=== PATIENT | male | born 1955 | race Caucasian/White ===

== ENCOUNTER 2017-01-20 16:11 | Inpatient (IN) | payer BC ==
[~2017-01-20] VITALS: Ht 182.9 cm; Wt 139.1 kg
[2017-01-20] VITALS (12 sets, daily range): BP systolic 155–184; BP diastolic 76–96; PULSE 64–78; RESP 16–20; TEMP 98.1–98.5; O2SAT 96–99
[~2017-01-20 16:11] MED LIST: AMLO2.5T PO; ST JTAB PO
--- NOTE | 2017-01-20 16:37 | PD ---
HPI Chief Complaint: Abnormal Results Time Seen by Provider: 16:24 Travel History International Travel<30 days: No Contact w/Intl Traveler<30days: No Traveled to known affect area: No History of Present Illness HPI 61-year-old male with history of CAD, hypertension, here for evaluation of nausea and elevated blood pressure. The patient reports that he felt as though he was having a sinus infection and started taking a leftover Biaxin prescription yesterday. Today the patient has had some nausea and indigestion type feeling in his chest, and when he checked his blood pressure at home it was 190/113. He is also complaining of a diffuse headache which is moderate, gradual onset. No dyspnea. No paresthesias or motor deficits. Patient had a cardiac catheter [place] [address] Elise which showed mild disease. PFSH Past Medical History Cardiovascular Problems: Yes Social History Alcohol Use: Yes (occasional) Tobacco Use: No Allergies-Medications (Allergen,Severity, Reaction): Coded Allergies: No Known Allergies (Verified , 01/20/17) Reported Meds & Prescriptions Reported Meds & Active Scripts Active Reported Testosterone Cypionate Inj (Testosterone Cypionate) 100 Mg/Ml Inj 100 Mg IM ONCE Livalo (Pitavastatin) 2 Mg Tab 2 Mg PO HS Aspirin 81 Mg Tabdr 81 Mg PO DAILY Amlodipine (Amlodipine Besylate) 2.5 Mg Tab 2.5 Mg PO DAILY Review of Systems Except as stated in HPI: all other systems reviewed are Neg Physical Exam Narrative GENERAL: Well-developed, well-nourished, comfortable, no acute distress. SKIN: Warm and dry. No rash. HEAD: Atraumatic. Normocephalic. EYES: Pupils equal and round. No scleral icterus. No injection or drainage. ENT: Mucous membranes pink and moist. NECK: Trachea midline. No JVD. CARDIOVASCULAR: Regular rate and rhythm. Distal pulses brisk and equal bilaterally. RESPIRATORY: No accessory muscle use. Clear to auscultation. Breath sounds equal bilaterally. GASTROINTESTINAL: Abdomen soft, non-tender, nondistended. MUSCULOSKELETAL: No obvious deformities. No clubbing. No cyanosis. No edema. NEUROLOGICAL: Awake and alert. No obvious cranial nerve deficits. Motor grossly within normal limits. Normal speech. No focal deficits. PSYCHIATRIC: Appropriate mood and affect; insight and judgment normal. Data Data Last Documented VS Vital Signs Date Time Temp Pulse Resp B/P Pulse Ox O2 Delivery O2 Flow Rate FiO2 01/20/17 17:35 76 18 174/94 97 Room Air 01/20/17 16:18 98.5 Orders Electrocardiogram (01/20/17 16:32) Ckmb (Isoenzyme) Profile (01/20/17 16:32) Complete Blood Count With Diff (01/20/17 16:32) Comprehensive Metabolic Panel (01/20/17 16:32) Magnesium (Mg) (01/20/17 16:32) Prothrombin Time / Inr (Pt) (01/20/17 16:32) Act Partial Throm Time (Ptt) (01/20/17 16:32) Troponin I (01/20/17 16:32) Chest, Single Ap (01/20/17 16:32) Ecg Monitoring (01/20/17 16:32) Bilateral Bp Monitoring (01/20/17 16:32) Iv Access Insert/Monitor (01/20/17 16:32) Oximetry (01/20/17 16:32) Oxygen Administration (01/20/17 16:32) Aspirin Chew (Aspirin Chew) (01/20/17 16:45) Sodium Chloride 0.9% Flush (Ns Flush) (01/20/17 16:45) Metoclopramide Inj (Reglan Inj) (01/20/17 16:45) CKMB (01/20/17 16:40) CKMB% (01/20/17 16:40) Aspirin Chew (Aspirin Chew) (01/20/17 17:30) Admit Order (Ed Use Only) (01/20/17 17:48) Enoxaparin Inj (Lovenox Inj) (01/20/17 18:00) Labs Laboratory Tests Test 01/20/17 16:40 White Blood Count 8.4 TH/MM3 Red Blood Count 5.02 MIL/MM3 Hemoglobin 15.6 GM/DL Hematocrit 45.0 % Mean Corpuscular Volume 89.7 FL Mean Corpuscular Hemoglobin 31.0 PG Mean Corpuscular Hemoglobin 34.6 % Concent Red Cell Distribution Width 12.2 % Platelet Count 258 TH/MM3 Mean Platelet Volume 7.3 FL Neutrophils (%) (Auto) 61.1 % Lymphocytes (%) (Auto) 25.7 % Monocytes (%) (Auto) 9.4 % Eosinophils (%) (Auto) 2.6 % Basophils (%) (Auto) 1.2 % Neutrophils # (Auto) 5.1 TH/MM3 Lymphocytes # (Auto) 2.2 TH/MM3 Monocytes # (Auto) 0.8 TH/MM3 Eosinophils # (Auto) 0.2 TH/MM3 Basophils # (Auto) 0.1 TH/MM3 CBC Comment DIFF FINAL Differential Comment Prothrombin Time 10.8 SEC Prothromb Time International 1.0 RATIO Ratio Activated Partial 26.8 SEC Thromboplast Time Sodium Level 140 MEQ/L Potassium Level 3.9 MEQ/L Chloride Level 104 MEQ/L Carbon Dioxide Level 27.2 MEQ/L Anion Gap 9 MEQ/L Blood Urea Nitrogen 14 MG/DL Creatinine 1.10 MG/DL Estimat Glomerular Filtration 68 ML/MIN Rate Random Glucose 97 MG/DL Calcium Level 9.0 MG/DL Magnesium Level 2.0 MG/DL Total Bilirubin 0.7 MG/DL Aspartate Amino Transf 26 U/L (AST/SGOT) Alanine Aminotransferase 35 U/L (ALT/SGPT) Alkaline Phosphatase 90 U/L Total Creatine Kinase 318 U/L Creatine Kinase MB 5.0 NG/ML Creatine Kinase MB % 1.6 % Troponin I 0.18 NG/ML Total Protein 7.7 GM/DL Albumin 4.0 GM/DL [facility] Medical Decision Making Medical Screen Exam Complete: Yes Emergency Medical Condition: Yes Interpretation(s) EKG: Sinus, rate 72, left axis deviation, LAFB, Q waves in inferior leads, low QRS voltages in precordial leads, no acute ischemic abnormality. Differential Diagnosis ACS, nausea, indigestion, GERD, hypertensive emergency, SAH/meningitis/ encephalitis unlikely, medication side effect Narrative Course Initial vital signs show heart rate 77, blood pressure 155/95, pulse ox 97% on room air, oral temp of 98.5F. CBC is unremarkable. CMP is unremarkable. Troponin is 0.18. Chest x-ray shows no acute cardiopulmonary disease. The patient took 3 baby aspirin at home and was given 1 more 81 mg aspirin here. He was made aware of all findings and is currently asymptomatic, no longer feels nauseous or has a headache after receiving Reglan. I discussed all results in detail with the patient, and initially he was refusing to stay in the hospital, however I explained to him that he would be taking on the risk of heart attack and if he were to leave the hospital, so he decided to stay. Case discussed with golf club head former Dr. Regalado covering for Dr. Elise. He agrees with admission to the main hospital [facility]. The patient will be started on Lovenox. Case discussed with hospitalist Dr. Everett who will admit the patient to her service. Diagnosis Primary Impression: NSTEMI (non-ST elevated myocardial infarction) Additional Impression: Nausea Admitting Information Admitting Physician Requests: Admit Esvin Ivory MD Jan 20, 2017 16:36
[2017-01-20] MEDS ORDERED: AMLO2.5T PO (16:38)
[2017-01-20] MEDS ORDERED: TEST1INJ3 IM (16:38)
[2017-01-20] MEDS ORDERED: LIVA2TAB PO (16:38)
[2017-01-20] MEDS ORDERED: ASPI1TAB69 PO (16:38)
[2017-01-20] MEDS ORDERED: ASPIRIN 81 MG CHEW TAB PO ONE ×2 (16:45→17:30)
[2017-01-20] MEDS ORDERED: METOCLOPRAMIDE HCL 10 MG/2 ML VIAL IV PUSH ONE (16:45)
[2017-01-20] MEDS ORDERED: SODIUM CHLORIDE 0.9% FLUSH 5 ML FLUSH IVF PRN (16:45)
[2017-01-20 16:52] LABS: AUTOMATED NEUTROPHIL # 5.1 TH/MM3 (1.8-7.7); BASOPHIL # 0.1 TH/MM3 (0-0.2); BASOPHIL % 1.2 % (0.0-2.0); EOSINOPHIL # 0.2 TH/MM3 (0-0.4); EOSINOPHIL % 2.6 % (0.0-4.0); HEMO FLAGS DIFF FINAL; LYMPH % 25.7 % (9.0-44.0); LYMPHOCYTE # 2.2 TH/MM3 (1.0-4.8); MEAN CELL VOLUME 89.7 FL (80.0-100.0); MEAN CORPUSCULAR HGB CONC 34.6 % (32.0-36.0); MONO % 9.4 % (0.0-8.0); NEUT % 61.1 % (16.0-70.0); PLATELET COUNT 258 TH/MM3 (150-450); RED BLOOD COUNT 5.02 MIL/MM3 (4.50-5.90); RED CELL DISTRIBUTION WIDTH 12.2 % (11.6-17.2); WHITE BLOOD COUNT 8.4 TH/MM3 (4.0-11.0)
[2017-01-20 17:03] LABS: CHLORIDE 104 MEQ/L (98-107); POTASSIUM 3.9 MEQ/L (3.5-5.1); SODIUM (NA) 140 MEQ/L (136-145)
[2017-01-20 17:07] LABS: ANION GAP 9 MEQ/L (5-15); BICARBONATE 27.2 MEQ/L (21.0-32.0); BLOOD UREA NITROGEN 14 MG/DL (7-18)
[2017-01-20 17:09] LABS: APTT (PATIENT) 26.8 SEC (24.3-30.1); PROTHROMBIN TIME - PATIENT 10.8 SEC (9.8-11.6)
[2017-01-20 17:10] LABS: ALT (GPT) 35 U/L (12-78); AST (GOT) 26 U/L (15-37); GLOMERULAR FILTRATION RATE 68 ML/MIN (>89)
[2017-01-20 17:12] LABS: TOTAL BILIRUBIN ADULT 0.7 MG/DL (0.2-1.0)
--- NOTE | 2017-01-20 17:12 | RADHPO ---
EXAM DATE/TIME: 01/20/2017 17:02 [place] COMPARISON: No previous studies available for comparison. INDICATIONS : Dizziness, nausea, and high blood pressure. MEDICAL HISTORY : Hypertension. SURGICAL HISTORY : Coronary artery stent. ENCOUNTER: Initial ACUITY: 1 day PAIN SCORE: 0/10 LOCATION: Right chest FINDINGS: A single view of the chest demonstrates the lungs to be symmetrically aerated without evidence of mas s, infiltrate or effusion. The cardiomediastinal contours are unremarkable. Osseous structures are intact. CONCLUSION: 1. No acute cardiopulmonary disease. Alvarez Lopez MD on January 20, 2017 at 17:10 Board Certified Radiologist. This report was verified electronically.
[2017-01-20 17:13] LABS: ALKALINE PHOSPHATASE 90 U/L (45-117); CREATINE KINASE 318 U/L (39-308)
[2017-01-20] MEDS: NITROGLYCERIN 2% OINT 1 GM PACKET TOP SCH (18:00)
[2017-01-20] MEDS ORDERED: ACETAMINOPHEN/HYDROcodone 325 MG/7.5 MG TAB PO PRN (18:00)
[2017-01-20] MEDS ORDERED: DOCUSATE SODIUM 100 MG CAP PO PRN (18:00)
[2017-01-20] MEDS ORDERED: CALCIUM CARBONATE 500 MG CHEWABLE TAB CHEW PRN (18:00)
[2017-01-20] MEDS ORDERED: ONDANSETRON HCL 4 MG/2 ML VIAL IV PRN (18:00)
[2017-01-20] MEDS ORDERED: MORPHINE SULFATE 4 MG/ML INJ IV PRN (18:00)
[2017-01-20] MEDS ORDERED: ENOXAPARIN SODIUM 150 MG/ML SYRINGE SQ ONE (18:00)
[2017-01-20] MEDS ORDERED: ALPRAZolam 0.25 MG TAB PO PRN (18:00)
[2017-01-20] MEDS ORDERED: ACETAMINOPHEN 500 MG CPLT PO PRN (18:00)
[2017-01-20] MEDS ORDERED: SODIUM CHLORIDE 0.9% FLUSH 5 ML FLUSH IV PRN (18:00)
[2017-01-20] MEDS ORDERED: MAGNESIUM HYDROXIDE SUSP 30 ML CUP PO PRN (18:00)
[2017-01-20] MEDS ORDERED: TEMAZEPAM 15 MG CAP PO PRN (21:00)
[2017-01-20] MEDS ORDERED: PRAVASTATIN SOD 40 MG TAB PO SCH (21:00)
[2017-01-20] MEDS ORDERED: CHLORHEXIDINE GLUCONATE 2 % 1 PACK (2 CLOTHS)(extra cloths) TOP PRN (21:30)
[2017-01-20] MEDS: SODIUM CHLORIDE 0.9% FLUSH 5 ML FLUSH IV SCH (22:06)
[2017-01-20] MEDS: METOPROLOL TARTRATE 25 MG TAB PO SCH (22:07)
[2017-01-21] VITALS (17 sets, daily range): BP systolic 139–165; BP diastolic 67–92; PULSE 60–72; RESP 16–20; TEMP 97.8–98.7; O2SAT 92–99
[2017-01-21] MEDS: NITROGLYCERIN 2% OINT 1 GM PACKET TOP SCH ×4 (00:34→17:49)
[2017-01-21 03:38] LABS: HDL CHOLESTEROL 27.4 MG/DL (40.0-60.0)
[2017-01-21] MEDS: CHLORHEXIDINE GLUCONATE 2 % 1 PACK (2 CLOTHS)(taper/protocol) TOP SCH (04:00)
[2017-01-21 05:02] LABS: POTASSIUM 3.7 MEQ/L (3.5-5.1)
[2017-01-21 05:57] LABS: CKMB 39.4 NG/ML (0.5-3.6)
[2017-01-21] MEDS ORDERED: ENOXAPARIN SODIUM 150 MG/ML SYRINGE SQ SCH (06:00)
--- NOTE | 2017-01-21 07:53 | HHI.HP ---
[facility] Service [facility] Hospitalists Primary Care Physician Non-Staff Admission Diagnosis NSTEMI, nausea Diagnoses: (1) NSTEMI (non-ST elevated myocardial infarction) Diagnosis: Principal Chief Complaint: nausea Travel History International Travel<30 Days: No Contact w/Intl Traveler <30 Da: No Traveled to Known Affected Are: No History of Present Illness patient is a 61 y/o male with history of hypertension who presented to ER with nausea. he says that he was at his usual state of health till yesterday when he started to have nausea. he says that he checked his blood pressure at the time and it was around 190's/ 110's. then he decided to come to the hospital. he denies any chest pain, sob, dizziness or diaphoresis. he had a heart catheterization in 2010 and being followed up by . at the time of my evaluation he was resting comfortably with no chest pain. Review of Systems Constitutional: DENIES: Fever, Weight loss, Chills, Night Sweats Eyes: DENIES: Blurred vision, Diplopia, Vision loss, Double Vision Ears, nose, mouth, throat: DENIES: Tinnitus, Vertigo, Throat pain, Epistaxis Respiratory: DENIES: Apneas, Cough, Snoring, Wheezing, Hemoptysis, Sputum production, Shortness of breath Cardiovascular: DENIES: Chest pain, Palpitations, Syncope, Dyspnea on Exertion , PND, Lower Extremity Edema, Orthopnea, Claudication Gastrointestinal: COMPLAINS OF: Nausea, DENIES: Abdominal pain, Black stools, Bloody stools, Constipation, Diarrhea, Vomiting, Difficulty Swallowing, Anorexia Genitourinary: DENIES: Urinary frequency, Urgency, Hematuria, Dysuria Musculoskeletal: DENIES: Joint pain, Muscle aches, Stiffness, Joint Swelling Integumentary: DENIES: Rash Neurologic: DENIES: Abnormal gait, Headache, Localized weakness, Paresthesias, Seizures, Speech Problems, Tremor, Poor Balance Psychiatric: DENIES: Anxiety, Confusion, Mood changes, Depression, Hallucinations, Agitation, Suicidal Ideation, Homicidal Ideation, Delusions Past Family Social History Past Medical History hypertension Past Surgical History tonsillectomy appendectomy rotator cuff repair knee surgery cardiac cath Reported Medications Testosterone Cypionate Inj (Testosterone Cypionate) 100 Mg/Ml Inj 100 Mg IM ONCE Livalo (Pitavastatin) 2 Mg Tab 2 Mg PO HS Aspirin 81 Mg Tabdr 81 Mg PO DAILY Amlodipine (Amlodipine Besylate) 2.5 Mg Tab 2.5 Mg PO DAILY Allergies: Coded Allergies: No Known Allergies (Verified , 01/20/17) Active Ordered Medications Current Medications Aspirin (Aspirin Chew) 162 mg ONCE ONCE PO ; Start 01/20/17 at 16:45; Stop at 17:23; Status DC IV Flush (NS Flush) 2 ml UNSCH PRN IVF FLUSH AFTER USING IV ACCESS; Start at 16:45; Stop 01/20/17 at 18:05; Status DC Metoclopramide HCl (Reglan Inj) 10 mg ONCE ONCE IV PUSH Last administered on 17:09; Start 01/20/17 at 16:45; Stop 01/20/17 at 16:46; Status DC Aspirin (Aspirin Chew) 81 mg ONCE ONCE PO Last administered on 01/20/17 17:30 ; Start 01/20/17 at 17:30; Stop 01/20/17 at 17:31; Status DC Enoxaparin Sodium (Lovenox Inj) 140 mg ONCE ONCE SQ Last administered on 18:36; Start 01/20/17 at 18:00; Stop 01/20/17 at 18:01; Status DC IV Flush (NS Flush) 2 ml BID IV Last administered on 01/20/17 22:06; Start 01/20 at 21:00 IV Flush (NS Flush) 2 ml UNSCH PRN IV FLUSH AFTER USING IV ACCESS; Start at 18:00 Aspirin (Aspirin) 325 mg DAILY PO ; Start 01/21/17 at 09:00 Metoprolol Tartrate (Lopressor) 25 mg BID PO Last administered on 01/20/17 22: 07; Start 01/20/17 at 21:00 Nitroglycerin (Nitroglycerin 2% Oint) 0.5 inch Q6HR TOP Last administered on 07:10; Start 01/20/17 at 18:00 Acetaminophen (Tylenol) 500 mg Q4H PRN PO HEADACHE; Start 01/20/17 at 18:00 Acetaminophen/ Hydrocodone Bitart ([place] 7.5-325 Mg) 1 tab Q4H PRN PO PAIN SCALE 1 TO 5; Start 01/20/17 at 18:00 Morphine Sulfate (Morphine Inj) 2 mg Q5M PRN IV PAIN SCALE 6 TO 10; Start at 18:00 Pantoprazole Sodium (Protonix) 40 mg DAILY PO ; Start 01/21/17 at 09:00 Temazepam (Restoril) 15 mg HS PRN PO INSOMNIA; Start 01/20/17 at 21:00 Alprazolam (Xanax) 0.25 mg TID PRN PO ANXIETY; Start 01/20/17 at 18:00 Enoxaparin Sodium (Lovenox Inj) 140 mg Q12H SQ ; Start 01/21/17 at 06:00 Ondansetron HCl (Zofran Inj) 4 mg Q6H PRN IV NAUSEA; Start 01/20/17 at 18:00 Docusate Sodium (Colace) 100 mg BID PRN PO CONSTIPATION; Start 01/20/17 at 18:00 Magnesium Hydroxide (Milk Of Magnesia Liq) 30 ml DAILY PRN PO for Severe Constipation; Start 01/20/17 at 18:00 Calcium Carbonate (Tums Chew) 1,000 mg TID PRN CHEW DYSPEPSIA; Start 01/20/17 at 18:00 Amlodipine Besylate (Norvasc) 2.5 mg DAILY PO ; Start 01/21/17 at 09:00 Pravastatin Sodium (Pravachol) 40 mg HS PO Last administered on 01/20/17 22:07 ; Start 01/20/17 at 21:00 Miscellaneous Information Patient in critical care unit? Ass... [id number] ; Start 01/20/17 at 21:30 Chlorhexidine Gluconate (Chlorhexidine 2% Cloth) 3 pack DAILY@04 TOP Last administered on 01/21/17 04:00; Start 01/21/17 at 04:00; Stop 01/25/17 at 04:01 Chlorhexidine Gluconate (Chlorhexidine 2% Cloth) 3 pack UNSCH PRN TOP HYGIENIC CARE; Start 01/20/17 at 21:30; Stop 01/25/17 at 21:28 Family History heart attack in father in his 50's. Social History no smoking or drinking. Physical Exam Vital Signs Vital Signs Date Time Temp Pulse Resp B/P Pulse Ox O2 Delivery O2 Flow Rate FiO2 01/21/17 06:00 67 01/21/17 04:00 70 01/21/17 04:00 98.7 70 20 139/67 95 01/21/17 02:00 60 01/21/17 00:00 62 01/21/17 00:00 98.3 62 18 139/67 92 01/20/17 22:00 65 01/20/17 21:32 97 21 01/20/17 21:29 98.1 64 20 175/91 96 01/20/17 20:41 99 01/20/17 19:03 99 Room Air 01/20/17 19:03 78 16 174/76 99 Room Air 01/20/17 18:59 96 01/20/17 18:25 77 20 174/76 97 Room Air 01/20/17 17:35 76 18 174/94 97 Room Air 01/20/17 16:50 74 184/96 168/94 01/20/17 16:43 96 Room Air 01/20/17 16:43 96 Room Air 01/20/17 16:38 75 18 158/91 96 Room Air 01/20/17 16:38 96 Room Air 01/20/17 16:18 98.5 77 16 155/95 97 Physical Exam GENERAL: This is a well-nourished, well-developed patient, in no apparent distress. SKIN: No rashes, ecchymoses or lesions. Cool and dry. HEAD: Atraumatic. Normocephalic. No temporal or scalp tenderness. EYES: Pupils equal round and reactive. Extraocular motions intact. No scleral icterus. No injection or drainage. ENT: Nose without bleeding, purulent drainage or septal hematoma. Throat without erythema, tonsillar hypertrophy or exudate. Uvula midline. Airway patent. NECK: Trachea midline. No JVD or lymphadenopathy. Supple, nontender, no meningeal signs. CARDIOVASCULAR: Regular rate and rhythm without murmurs, gallops, or rubs. RESPIRATORY: Clear to auscultation. Breath sounds equal bilaterally. No wheezes , rales, or rhonchi. GASTROINTESTINAL: Abdomen soft, non-tender, nondistended. No hepato-splenomegaly , or palpable masses. No guarding. MUSCULOSKELETAL: Extremities without clubbing, cyanosis, or edema. No joint tenderness, effusion, or edema noted. No calf tenderness. Negative Homans sign bilaterally. NEUROLOGICAL: Awake and alert. Cranial nerves II through XII intact. Motor and sensory grossly within normal limits. Five out of 5 muscle strength in all muscle groups. Normal speech. Laboratory Laboratory Tests Test 01/20/17 01/21/17 16:40 02:26 White Blood Count 8.4 Red Blood Count 5.02 Hemoglobin 15.6 Hematocrit 45.0 Mean Corpuscular Volume 89.7 Mean Corpuscular Hemoglobin 31.0 Mean Corpuscular Hemoglobin 34.6 Concent Red Cell Distribution Width 12.2 Platelet Count 258 Mean Platelet Volume 7.3 Neutrophils (%) (Auto) 61.1 Lymphocytes (%) (Auto) 25.7 Monocytes (%) (Auto) 9.4 Eosinophils (%) (Auto) 2.6 Basophils (%) (Auto) 1.2 Neutrophils # (Auto) 5.1 Lymphocytes # (Auto) 2.2 Monocytes # (Auto) 0.8 Eosinophils # (Auto) 0.2 Basophils # (Auto) 0.1 CBC Comment DIFF FINAL Differential Comment Prothrombin Time 10.8 Prothromb Time International 1.0 Ratio Activated Partial 26.8 Thromboplast Time Sodium Level 140 141 Potassium Level 3.9 3.7 Chloride Level 104 105 Carbon Dioxide Level 27.2 28.0 Anion Gap 9 8 Blood Urea Nitrogen 14 14 Creatinine 1.10 0.96 Estimat Glomerular Filtration 68 79 Rate Random Glucose 97 94 Calcium Level 9.0 8.6 Magnesium Level 2.0 Total Bilirubin 0.7 Aspartate Amino Transf 26 (AST/SGOT) Alanine Aminotransferase 35 (ALT/SGPT) Alkaline Phosphatase 90 Total Creatine Kinase 318 485 Creatine Kinase MB 5.0 39.4 Creatine Kinase MB % 1.6 8.1 Troponin I 0.18 7.68 Total Protein 7.7 Albumin 4.0 Triglycerides Level 202 Cholesterol Level 144 LDL Cholesterol 76 HDL Cholesterol 27.4 Cholesterol/HDL Ratio 5.25 Result Diagram: 01/20/17 1640 01/21/17 0226 Imaging Last Impressions Chest X-Ray 01/20/17 1632 Signed Impressions: Service Date/Time: Friday, January 20, 2017 17:02 - CONCLUSION: 1. No acute cardiopulmonary disease. Alvarez Lopez MD EKG; sinus rhythm Assessment and Plan Assessment and Plan A/P - NSTEMI continue aspirin, BB and statin- received a dose of lovenox last night. cardiology consulted. -hypertension; continue norvasc and BB- will monitor and adjust the regimen as needed. -DVT prophylaxis; on lovenox Discussed Condition With the patient and his family at the beside. Physician Certification 2 Midnight Certification Type: Admission for Inpatient Services Order for Inpatient Services The services are ordered in accordance with Medicare regulations or non- Medicare payer requirements, as applicable. In the case of services not specified as inpatient-only, they are appropriately provided as inpatient services in accordance with the 2-midnight benchmark. Estimated LOS (days): 2 days is the estimated time the patient will need to remain in the hospital, assuming treatment plan goals are met and no additional complications. Post-Hospital Plan: Home Param Eisenberg MD Jan 21, 2017 07:53
[2017-01-21 08:23] LABS: AUTOMATED NEUTROPHIL # 4.7 TH/MM3 (1.8-7.7); BASOPHIL # 0.1 TH/MM3 (0-0.2); BASOPHIL % 0.6 % (0.0-2.0); EOSINOPHIL # 0.2 TH/MM3 (0-0.4); EOSINOPHIL % 2.5 % (0.0-4.0); HEMATOCRIT 43.4 % (39.0-51.0); HEMO FLAGS DIFF FINAL; LYMPH % 30.8 % (9.0-44.0); LYMPHOCYTE # 2.6 TH/MM3 (1.0-4.8); MEAN CELL VOLUME 89.6 FL (80.0-100.0); MEAN CORPUSCULAR HEMOGLOBIN 31.7 PG (27.0-34.0); MEAN CORPUSCULAR HGB CONC 35.3 % (32.0-36.0); MONO % 10.9 % (0.0-8.0); NEUT % 55.2 % (16.0-70.0); PLATELET COUNT 238 TH/MM3 (150-450); RED BLOOD COUNT 4.85 MIL/MM3 (4.50-5.90); WHITE BLOOD COUNT 8.5 TH/MM3 (4.0-11.0)
[2017-01-21] MEDS: ASPIRIN 325 MG TAB PO SCH (08:35)
[2017-01-21] MEDS: METOPROLOL TARTRATE 25 MG TAB PO SCH ×2 (08:35→20:37)
[2017-01-21] MEDS: amLODIPine BESYLATE 5 MG TAB PO SCH (08:35)
[2017-01-21] MEDS: PANTOPRAZOLE SOD 40 MG DELAYED RELEASE TAB PO SCH (08:35)
[2017-01-21] MEDS: SODIUM CHLORIDE 0.9% FLUSH 5 ML FLUSH IV SCH ×2 (08:36→20:37)
[2017-01-21] MEDS: SODIUM CHLOR 0.9% 1000 ML INJ 1,000 ML IV SCH ×2 (08:41→23:18)
[2017-01-21 09:22] LABS: CKMB 43.4 NG/ML (0.5-3.6)
[2017-01-21 09:47] LABS: APTT (PATIENT) 68.3 SEC (24.3-30.1)
[2017-01-21] MEDS: ENOXAPARIN SODIUM 100 MG/ML SYRINGE SQ SCH (13:06)
--- NOTE | 2017-01-21 14:22 | MB ---
cc: RACHAEL ELISE M.D., DR. DATE OF CONSULTATION: 01/21/2017 REASON FOR CONSULTATION: Mr. Collado is a pleasant 61-year-old gentleman history of hypertension, hyperlipidemia, history of coronary artery disease, no history of smoking. No history of diabetes, comes in with nausea and not feeling good quote, unquote, yesterday was found to have this as elevation of his troponin. He was seen in the ER in [facility] and was advised to be admitted. He agreed reluctantly and his troponin levels even went higher for which a consult was called. The consult was initially called to Dr. Wright and Transferred to Dr. Elise. Denies palpitations, dizziness or syncope. Denies orthopnea, PND, or leg swellings. Denies claudications. ALLERGIES NO KNOWN DRUG ALLERGIES. PAST MEDICAL AND SURGICAL HISTORY This was mentioned above. PAST SURGICAL HISTORY: 1. Status post tonsillectomy. 2. Status post appendectomy 3. Rotator cuff repair in the past. 4. had a cardiac catheterization 2010, had mild to moderate disease by Dr. Elise. REVIEW OF SYSTEMS System review was unremarkable except what is mentioned in the history of present illness. FAMILY HISTORY: Family history is positive for coronary artery disease, MD, hypertension, no cancer or diabetes. SOCIAL HISTORY Denies smoking, EtOH abuse or recreational drug use. He is and lives with his . He works with his at a [employer]. He use to work in [employer]. MEDICATIONS medications at home; 1. Testosterone 100 mg IM once daily. 2. Amlodipine 2.5 mg p.o. daily. 3. <<2:20>> 2 mg p.o. q.h.s. 4. Aspirin 81 p.o. daily. REVIEW OF SYSTEMS 12-point system review was unremarkable except what is mentioned in the history of present illness. Denies currently any nausea or chest pain. At this point he is symptom free. Denies hematochezia, or melena. PHYSICAL EXAMINATION IN GENERAL: 61-year-old gentleman lying in recliner in no apparent distress, alert and oriented x3 answering questions appropriately. VITAL SIGNS: Blood pressure 140 seven or 88 mmHg, pulse of 67 beats per minute and regular, respirations 14 per minute, afebrile. HEAD, EYES, EARS, NOSE, AND THROAT: Shows head is normocephalic. Pupils equal, active. Throat is within normal limits. NECK: Supple. No carotid bruit. No thyromegaly. Jugular venous distension noted. LUNGS: Clear to auscultation and percussion. CARDIOVASCULAR SYSTEM: S1, S2, normal. No rubs or murmurs. ABDOMEN: Obese but lax, nontender. Normoactive bowel sounds. No organomegaly or masses felt. EXTREMITIES: No clubbing, cyanosis or edema. Pulses 2+ bilaterally and no bruit noted. NEUROLOGIC: Grossly intact with no focal deficits. RECTAL EXAMINATION: Deferred. RADIOLOGIC: Electrocardiogram showed sinus rhythm with poor R-wave progression, no acute ischemic changes. Chest x-ray Showed no acute infiltrates. Cardiac size within normal limits. LABORATORY Shows sodium 141, potassium 3.7, BUN of 14, creatinine 0.96. CPKs up to 540 with MB percent of 8.0, troponin I is up to 8.63. LDL of 76, HDL of 27, triglycerides of 2 joules. RECOMMENDATIONS Coronary artery disease / non-ST elevation myocardial infarction. Currently asymptomatic. We will continue with Lovenox, aspirin and beta blockers. Continue with statins. If he has any further symptoms or dynamic ST changes and glycoprotein, CBC and inhibitors should be added. At this point he is asymptomatic and he would benefit from a cardiac catheterization and will leave further management up to Dr. Elise who will resume his care from Monday morning. The patient will be kept n.p.o. from Monday night midnight. Pravastatin dose will be increased to 8 mg q.h.s. Further recommendations will follow and we will follow with you over the weekend. MD KAVEH Gonzáles/anjali /12:31 PM /12:55 PM
--- NOTE | 2017-01-21 18:21 | EKG ---
Date Performed: 01/20/2017 Time Performed: 16:41:38 PTAGE: 61 years EKG: Sinus rhythm Possible left anterior fascicular block Poor R wave progression. Low QRS voltages in precordial lead s Abnormal ECG PREVIOUS TRACING : 09/27/1999 12.31 DOCTOR: Edward Brown Interpretating Date/Time 01/21/2017 18:22:03
--- NOTE | 2017-01-21 18:25 | EKG ---
Date Performed: 01/20/2017 Time Performed: 22:20:06 PTAGE: 61 years EKG: Sinus rhythm MARKED LEFT AXIS DEVIATION CONSIDER LATERAL MYOCARDIAL INFARCTION , PROBABLY OLD ABNORMAL ECG PREVIOUS TRACING : 01/20/2017 16.41 DOCTOR: Edward Brown Interpretating Date/Time 01/21/2017 18:24:48
--- NOTE | 2017-01-21 18:26 | EKG ---
Date Performed: 01/21/2017 Time Performed: 04:45:22 PTAGE: 61 years EKG: CONSIDER ACUTE ST ELEVATION ID Sinus rhythm Left axis deviation Inferior infarct - age undetermined Consider lateral ST elevation, CONSIDER ACUT E INFARCT Abnormal ECG PREVIOUS TRACING : 01/20/2017 22.20 DOCTOR: Edward Brown Interpretating Date/Time 01/21/2017 18:25:21
[2017-01-21] MEDS: PRAVASTATIN SOD 80 MG TAB PO SCH (20:37)
[2017-01-22] VITALS (24 sets, daily range): BP systolic 119–158; BP diastolic 64–95; PULSE 59–89; RESP 16–20; TEMP 97.4–98.2; O2SAT 70–97
[2017-01-22] MEDS: NITROGLYCERIN 2% OINT 1 GM PACKET TOP SCH ×4 (01:15→18:03)
[2017-01-22] MEDS: ENOXAPARIN SODIUM 100 MG/ML SYRINGE SQ SCH ×2 (01:16→14:28)
[2017-01-22] MEDS: CHLORHEXIDINE GLUCONATE 2 % 1 PACK (2 CLOTHS)(taper/protocol) TOP SCH (04:00)
--- NOTE | 2017-01-22 08:36 | HHI.PR ---
Subjective Remarks sitting on the chair with no distress. denies any chest pain or sob. says that he ' had a problem with his hemorrhoid again.' Objective Vitals Vital Signs Date Time Temp Pulse Resp B/P Pulse Ox O2 Delivery O2 Flow Rate FiO2 01/22/17 07:12 71 01/22/17 06:00 62 01/22/17 05:00 64 01/22/17 04:00 Room Air 01/22/17 04:00 68 01/22/17 04:00 98.1 68 18 156/90 97 01/22/17 03:00 64 01/22/17 02:00 61 01/22/17 01:00 63 01/22/17 00:00 Room Air 01/22/17 00:00 97.8 59 18 129/68 97 01/22/17 00:00 60 01/21/17 23:00 63 01/21/17 22:00 61 01/21/17 21:00 70 01/21/17 20:00 72 01/21/17 20:00 98.0 72 20 158/76 98 01/21/17 18:00 70 01/21/17 17:00 72 01/21/17 16:00 68 01/21/17 16:00 97.8 63 16 148/92 99 01/21/17 15:00 68 01/21/17 14:00 65 01/21/17 12:00 98.3 68 18 165/88 96 01/21/17 12:00 68 01/21/17 10:43 98 01/21/17 10:00 63 I/O 01/21/17 01/21/17 01/21/17 01/22/17 01/22/17 01/22/17 07:00 15:00 23:00 07:00 15:00 23:00 Intake Total 120 ml 100 ml 940 ml Output Total 450 ml 300 ml 650 ml Balance -330 ml -200 ml 290 ml Intake Oral 120 ml 100 ml 240 ml IV Total 0 ml 700 ml Output Urine Total 450 ml 300 ml 650 ml # Voids 2 # Bowel Movements 0 0 0 Result Diagram: 01/21/176 01/21/176 Imaging Last Impressions Chest X-Ray 01/20/17 1632 Signed Impressions: Service Date/Time: Friday, January 20, 2017 17:02 - CONCLUSION: 1. No acute cardiopulmonary disease. Alvarez Lopez MD Objective Remarks GENERAL: This is a well-nourished, well-developed patient, in no apparent distress. CARDIOVASCULAR: Regular rate and regular rhythm without murmurs, gallops, or rubs. RESPIRATORY: Clear to auscultation. Breath sounds equal bilaterally. No wheezes , rales, or rhonchi. GASTROINTESTINAL: Abdomen soft, non-tender, nondistended. Normal, active bowel sounds MUSCULOSKELETAL: Extremities without clubbing, cyanosis, or edema. NEURO: Alert & Oriented x4 to person, place, time, situation. Moves all ext x4 Procedures none Medications and IVs Current Medications Aspirin (Aspirin Chew) 162 mg ONCE ONCE PO ; Start 01/20/17 at 16:45; Stop at 17:23; Status DC IV Flush (NS Flush) 2 ml UNSCH PRN IVF FLUSH AFTER USING IV ACCESS; Start at 16:45; Stop 01/20/17 at 18:05; Status DC Metoclopramide HCl (Reglan Inj) 10 mg ONCE ONCE IV PUSH Last administered on 17:09; Start 01/20/17 at 16:45; Stop 01/20/17 at 16:46; Status DC Aspirin (Aspirin Chew) 81 mg ONCE ONCE PO Last administered on 01/20/17 17:30 ; Start 01/20/17 at 17:30; Stop 01/20/17 at 17:31; Status DC Enoxaparin Sodium (Lovenox Inj) 140 mg ONCE ONCE SQ Last administered on 18:36; Start 01/20/17 at 18:00; Stop 01/20/17 at 18:01; Status DC IV Flush (NS Flush) 2 ml BID IV Last administered on 01/21/17 20:37; Start 01/20 at 21:00 IV Flush (NS Flush) 2 ml UNSCH PRN IV FLUSH AFTER USING IV ACCESS; Start at 18:00 Aspirin (Aspirin) 325 mg DAILY PO Last administered on 01/21/17 08:35; Start at 09:00 Metoprolol Tartrate (Lopressor) 25 mg BID PO Last administered on 01/21/17 20: 37; Start 01/20/17 at 21:00 Nitroglycerin (Nitroglycerin 2% Oint) 0.5 inch Q6HR TOP Last administered on 06:03; Start 01/20/17 at 18:00 Acetaminophen (Tylenol) 500 mg Q4H PRN PO HEADACHE; Start 01/20/17 at 18:00 Acetaminophen/ Hydrocodone Bitart ([place] 7.5-325 Mg) 1 tab Q4H PRN PO PAIN SCALE 1 TO 5; Start 01/20/17 at 18:00 Morphine Sulfate (Morphine Inj) 2 mg Q5M PRN IV PAIN SCALE 6 TO 10; Start at 18:00 Pantoprazole Sodium (Protonix) 40 mg DAILY PO Last administered on 01/21/17 08: 35; Start 01/21/17 at 09:00 Temazepam (Restoril) 15 mg HS PRN PO INSOMNIA; Start 01/20/17 at 21:00 Alprazolam (Xanax) 0.25 mg TID PRN PO ANXIETY; Start 01/20/17 at 18:00 Enoxaparin Sodium (Lovenox Inj) 140 mg Q12H SQ ; Start 01/21/17 at 06:00; Stop at 12:57; Status DC Ondansetron HCl (Zofran Inj) 4 mg Q6H PRN IV NAUSEA; Start 01/20/17 at 18:00 Docusate Sodium (Colace) 100 mg BID PRN PO CONSTIPATION; Start 01/20/17 at 18:00 Magnesium Hydroxide (Milk Of Magnesia Liq) 30 ml DAILY PRN PO for Severe Constipation; Start 01/20/17 at 18:00 Calcium Carbonate (Tums Chew) 1,000 mg TID PRN CHEW DYSPEPSIA; Start 01/20/17 at 18:00 Amlodipine Besylate (Norvasc) 2.5 mg DAILY PO Last administered on 01/21/17 08: 35; Start 01/21/17 at 09:00 Pravastatin Sodium (Pravachol) 40 mg HS PO Last administered on 01/20/17 22:07 ; Start 01/20/17 at 21:00; Stop 01/21/17 at 13:00; Status DC Miscellaneous Information Patient in critical care unit? Ass... Q361D XX ; Start 01/20/17 at 21:30 Chlorhexidine Gluconate (Chlorhexidine 2% Cloth) 3 pack DAILY@04 TOP Last administered on 01/21/17 04:00; Start 01/21/17 at 04:00; Stop 01/25/17 at 04:01 Chlorhexidine Gluconate 3 pack 3 pack UNSCH PRN TOP HYGIENIC CARE; Start at 21:30; Stop 01/25/17 at 21:28 Sodium Chloride (NS 1000 ml Inj) 1,000 ml @ 70 mls/hr [id number] IV Last administered on 01/21/17 08:41; Start 01/21/17 at 09:00 Enoxaparin Sodium (Lovenox Inj) 100 mg Q12H SQ Last administered on 01/22/17 01 :16; Start 01/21/17 at 14:00 Pravastatin Sodium (Pravachol) 80 mg HS PO Last administered on 01/21/17 20:37 ; Start 01/21/17 at 21:00 A/P Assessment and Plan A/P - NSTEMI continue aspirin, BB, lovenox and statin- cardiology consult appreciated and plan for cardiac cath in am. -hypertension; continue norvasc and BB- will monitor and adjust the regimen as needed. -DVT prophylaxis; on lovenox Param Eisenberg MD Jan 22, 2017 08:35
[2017-01-22] MEDS: PANTOPRAZOLE SOD 40 MG DELAYED RELEASE TAB PO SCH (09:50)
[2017-01-22] MEDS: METOPROLOL TARTRATE 25 MG TAB PO SCH ×2 (09:50→19:59)
[2017-01-22] MEDS: ASPIRIN 325 MG TAB PO SCH (09:51)
[2017-01-22] MEDS: amLODIPine BESYLATE 5 MG TAB PO SCH (09:51)
[2017-01-22] MEDS: SODIUM CHLORIDE 0.9% FLUSH 5 ML FLUSH IV SCH ×2 (09:52→19:59)
[2017-01-22 11:30] LABS: HEMATOCRIT 43.8 % (39.0-51.0)
[2017-01-22] MEDS: SODIUM CHLOR 0.9% 1000 ML INJ 1,000 ML IV SCH (13:36)
--- NOTE | 2017-01-22 14:40 | EKG ---
Date Performed: 01/21/2017 Time Performed: 14:16:52 PTAGE: 61 years EKG: Sinus rhythm MARKED LEFT AXIS DEVIATION PROBABLE LATERAL MYOCARDIAL INFARCTION , OF INDETERMINATE AGE ABNORMAL EC G Compared to prior tracing no significant change PREVIOUS TRACING : 01/21/2017 04.45 DOCTOR: Edward Brown Interpretating Date/Time 01/22/2017 14:38:24
[2017-01-22] MEDS: PRAVASTATIN SOD 80 MG TAB PO SCH (19:59)
[2017-01-23] VITALS (26 sets, daily range): BP systolic 131–151; BP diastolic 71–97; PULSE 57–80; RESP 16–18; TEMP 98.1–98.9; O2SAT 96–99
[2017-01-23] MEDS: NITROGLYCERIN 2% OINT 1 GM PACKET TOP SCH ×5 (00:20→23:53)
[2017-01-23] MEDS: SODIUM CHLOR 0.9% 1000 ML INJ 1,000 ML IV SCH ×3 (00:24→18:12)
[2017-01-23] MEDS: CHLORHEXIDINE GLUCONATE 2 % 1 PACK (2 CLOTHS)(taper/protocol) TOP SCH (04:00)
[2017-01-23] MEDS ORDERED: ASPIRIN 325 MG TAB PO SCH (09:00)
[2017-01-23] MEDS: SODIUM CHLORIDE 0.9% FLUSH 5 ML FLUSH IV SCH ×2 (09:00→20:41)
--- NOTE | 2017-01-23 09:07 | HHI.PR ---
Subjective Remarks resting comfortably with no distress. has on and off mild chest pain. otherwise no other complaints. awaiting cardiac cath. Objective Vitals Vital Signs Date Time Temp Pulse Resp B/P Pulse Ox O2 Delivery O2 Flow Rate FiO2 01/23/17 08:02 70 01/23/17 07:59 77 18 143/90 97 01/23/17 07:59 97 Room Air 01/23/17 07:06 70 01/23/17 06:00 73 01/23/17 04:59 72 01/23/17 04:00 65 01/23/17 04:00 98.5 65 18 136/82 98 01/23/17 04:00 Room Air 01/23/17 03:00 69 01/23/17 02:00 74 01/23/17 01:00 70 01/23/17 00:00 67 01/23/17 00:00 Room Air 01/23/17 00:00 98.4 67 18 131/71 96 01/22/17 23:00 70 01/22/17 22:00 69 01/22/17 21:00 71 01/22/17 20:00 Room Air 01/22/17 20:00 64 01/22/17 20:00 98.2 64 20 128/64 97 01/22/17 18:00 71 01/22/17 17:00 89 01/22/17 16:35 98.0 70 18 143/92 70 01/22/17 16:00 70 01/22/17 15:00 72 01/22/17 14:16 66 01/22/17 13:00 62 01/22/17 12:00 67 01/22/17 12:00 97.4 70 20 119/73 95 01/22/17 11:00 66 01/22/17 10:00 83 I/O 01/22/17 01/22/17 01/22/17 01/23/17 01/23/17 01/23/17 07:00 15:00 23:00 07:00 15:00 23:00 Intake Total 940 ml 1834 ml 814 ml Output Total 650 ml 1100 ml Balance 290 ml 1834 ml -286 ml Intake Oral 240 ml 1500 ml 480 ml IV Total 700 ml 334 ml 334 ml Output Urine Total 650 ml 1100 ml # Voids 9 # Bowel Movements 0 1 0 Result Diagram: 01/22/17 1113 01/21/17 0226 Imaging Last Impressions Chest X-Ray 01/20/17 1632 Signed Impressions: Service Date/Time: Friday, January 20, 2017 17:02 - CONCLUSION: 1. No acute cardiopulmonary disease. Alvarez Lopez MD Objective Remarks GENERAL: This is a well-nourished, well-developed patient, in no apparent distress. CARDIOVASCULAR: Regular rate and regular rhythm without murmurs, gallops, or rubs. RESPIRATORY: Clear to auscultation. Breath sounds equal bilaterally. No wheezes , rales, or rhonchi. GASTROINTESTINAL: Abdomen soft, non-tender, nondistended. Normal, active bowel sounds MUSCULOSKELETAL: Extremities without clubbing, cyanosis, or edema. NEURO: Alert & Oriented x4 to person, place, time, situation. Moves all ext x4 Procedures none Medications and IVs Current Medications Aspirin (Aspirin Chew) 162 mg ONCE ONCE PO ; Start 01/20/17 at 16:45; Stop at 17:23; Status DC IV Flush (NS Flush) 2 ml UNSCH PRN IVF FLUSH AFTER USING IV ACCESS; Start at 16:45; Stop 01/20/17 at 18:05; Status DC Metoclopramide HCl (Reglan Inj) 10 mg ONCE ONCE IV PUSH Last administered on 17:09; Start 01/20/17 at 16:45; Stop 01/20/17 at 16:46; Status DC Aspirin (Aspirin Chew) 81 mg ONCE ONCE PO Last administered on 01/20/17 17:30 ; Start 01/20/17 at 17:30; Stop 01/20/17 at 17:31; Status DC Enoxaparin Sodium (Lovenox Inj) 140 mg ONCE ONCE SQ Last administered on 18:36; Start 01/20/17 at 18:00; Stop 01/20/17 at 18:01; Status DC IV Flush (NS Flush) 2 ml BID IV Last administered on 01/22/17 19:59; Start 01/20 at 21:00 IV Flush (NS Flush) 2 ml UNSCH PRN IV FLUSH AFTER USING IV ACCESS; Start at 18:00 Aspirin (Aspirin) 325 mg DAILY PO Last administered on 01/22/17 09:51; Start at 09:00 Metoprolol Tartrate (Lopressor) 25 mg BID PO Last administered on 01/22/17 19: 59; Start 01/20/17 at 21:00 Nitroglycerin (Nitroglycerin 2% Oint) 0.5 inch Q6HR TOP Last administered on 00:20; Start 01/20/17 at 18:00 Acetaminophen (Tylenol) 500 mg Q4H PRN PO HEADACHE; Start 01/20/17 at 18:00 Acetaminophen/ Hydrocodone Bitart ([place] 7.5-325 Mg) 1 tab Q4H PRN PO PAIN SCALE 1 TO 5; Start 01/20/17 at 18:00 Morphine Sulfate (Morphine Inj) 2 mg Q5M PRN IV PAIN SCALE 6 TO 10; Start at 18:00 Pantoprazole Sodium (Protonix) 40 mg DAILY PO Last administered on 01/22/17 09: 50; Start 01/21/17 at 09:00 Temazepam (Restoril) 15 mg HS PRN PO INSOMNIA; Start 01/20/17 at 21:00 Alprazolam (Xanax) 0.25 mg TID PRN PO ANXIETY; Start 01/20/17 at 18:00 Enoxaparin Sodium (Lovenox Inj) 140 mg Q12H SQ ; Start 01/21/17 at 06:00; Stop at 12:57; Status DC Ondansetron HCl (Zofran Inj) 4 mg Q6H PRN IV NAUSEA; Start 01/20/17 at 18:00 Docusate Sodium (Colace) 100 mg BID PRN PO CONSTIPATION; Start 01/20/17 at 18:00 Magnesium Hydroxide (Milk Of Magnesia Liq) 30 ml DAILY PRN PO for Severe Constipation; Start 01/20/17 at 18:00 Calcium Carbonate (Tums Chew) 1,000 mg TID PRN CHEW DYSPEPSIA; Start 01/20/17 at 18:00 Amlodipine Besylate (Norvasc) 2.5 mg DAILY PO Last administered on 01/22/17 09: 51; Start 01/21/17 at 09:00 Pravastatin Sodium (Pravachol) 40 mg HS PO Last administered on 01/20/17 22:07 ; Start 01/20/17 at 21:00; Stop 01/21/17 at 13:00; Status DC Miscellaneous Information Patient in critical care unit? Ass... Q361D XX ; Start 01/20/17 at 21:30 Chlorhexidine Gluconate (Chlorhexidine 2% Cloth) 3 pack DAILY@04 TOP Last administered on 01/21/17 04:00; Start 01/21/17 at 04:00; Stop 01/25/17 at 04:01 Chlorhexidine Gluconate 3 pack 3 pack UNSCH PRN TOP HYGIENIC CARE; Start at 21:30; Stop 01/25/17 at 21:28 Sodium Chloride (NS 1000 ml Inj) 1,000 ml @ 70 mls/hr [id number] IV Last administered on 01/23/17 00:24; Start 01/21/17 at 09:00 Enoxaparin Sodium (Lovenox Inj) 100 mg Q12H SQ Last administered on 01/22/17 14 :28; Start 01/21/17 at 14:00; Stop 01/22/17 at 14:44; Status DC Pravastatin Sodium (Pravachol) 80 mg HS PO Last administered on 01/22/17 19:59 ; Start 01/21/17 at 21:00 A/P Assessment and Plan A/P - NSTEMI continue aspirin, BB, lovenox and statin- cardiology consult appreciated and plan for cardiac cath today. -hypertension; continue norvasc and BB- will monitor and adjust the regimen as needed. -DVT prophylaxis; on lovenox Discharge Planning pending cardiac cath and cardiology recommendations. Param Eisenberg MD Jan 23, 2017 09:07
[2017-01-23] MEDS: PANTOPRAZOLE SOD 40 MG DELAYED RELEASE TAB PO SCH (09:27)
[2017-01-23] MEDS: METOPROLOL TARTRATE 25 MG TAB PO SCH ×2 (09:27→20:40)
[2017-01-23] MEDS: ASPIRIN 325 MG TAB PO SCH (09:27)
[2017-01-23] MEDS: amLODIPine BESYLATE 5 MG TAB PO SCH (09:27)
[2017-01-23 10:33] LABS: AUTOMATED NEUTROPHIL # 4.5 TH/MM3 (1.8-7.7); BASOPHIL % 0.6 % (0.0-2.0); EOSINOPHIL # 0.1 TH/MM3 (0-0.4); EOSINOPHIL % 1.4 % (0.0-4.0); HEMATOCRIT 46.6 % (39.0-51.0); HEMO FLAGS DIFF FINAL; LYMPH % 25.6 % (9.0-44.0); LYMPHOCYTE # 1.8 TH/MM3 (1.0-4.8); MEAN CELL VOLUME 90.5 FL (80.0-100.0); MEAN CORPUSCULAR HEMOGLOBIN 31.9 PG (27.0-34.0); MEAN CORPUSCULAR HGB CONC 35.2 % (32.0-36.0); MONO % 9.5 % (0.0-8.0); NEUT % 62.9 % (16.0-70.0); PLATELET COUNT 243 TH/MM3 (150-450); RED BLOOD COUNT 5.15 MIL/MM3 (4.50-5.90); RED CELL DISTRIBUTION WIDTH 13.2 % (11.6-17.2); WHITE BLOOD COUNT 7.2 TH/MM3 (4.0-11.0)
[2017-01-23 10:44] LABS: APTT (PATIENT) 28.5 SEC (24.3-30.1); PROTHROMBIN TIME - PATIENT 11.3 SEC (9.8-11.6)
[2017-01-23 11:02] LABS: BICARBONATE 27.5 MEQ/L (21.0-32.0)
[2017-01-23] MEDS ORDERED: MIDAZOLAM HCL 2 MG/2 ML VIAL ONE (12:37)
[2017-01-23] MEDS ORDERED: HEPARIN SODIUM - IV 10,000 UNITS/10 ML VIAL ONE (13:37)
[2017-01-23] MEDS ORDERED: PRASUGREL 10 MG TAB ONE (14:02)
[2017-01-23] MEDS ORDERED: IOHEXOL 350 MG/ML 100 ML BTL (for Cath Lab) OTHER ONE (14:05)
[2017-01-23] MEDS ORDERED: oxyCODONE/ACETAMINOPHEN 10 MG/325 MG TAB PO PRN (14:45)
[2017-01-23] MEDS ORDERED: MISC INFORMATION XX ONE (14:45)
[2017-01-23] MEDS ORDERED: ASPIRIN 81 MG CHEW TAB PO SCH (14:45)
[2017-01-23] MEDS ORDERED: ATROPINE SULFATE 1 MG/ML VIAL IV PRN (14:45)
[2017-01-23] MEDS ORDERED: SODIUM CHLOR 0.9% 1000 ML INJ 1,000 ML IV SCH (14:45)
[2017-01-23] MEDS ORDERED: TEMAZEPAM 15 MG CAP PO PRN (14:45)
[2017-01-23] MEDS ORDERED: SODIUM CHLOR 0.9% 250 ML INJ 250 ML IV PRN (14:45)
[2017-01-23] MEDS ORDERED: oxyCODONE/ACETAMINOPHEN 5 MG/325 MG TAB PO PRN (14:45)
[2017-01-23] MEDS ORDERED: ONDANSETRON HCL 4 MG/2 ML VIAL IV PRN (14:45)
[2017-01-23] MEDS ORDERED: BACITRACIN OINT 0.9 GM PKT TOP ONE (14:45)
[2017-01-23] MEDS ORDERED: ATORVASTATIN 10 MG TAB PO SCH (21:00)
[2017-01-24] VITALS (14 sets, daily range): BP systolic 126–145; BP diastolic 65–89; PULSE 61–82; RESP 18; TEMP 97.4–98.1; O2SAT 96–97
[2017-01-24] MEDS: CHLORHEXIDINE GLUCONATE 2 % 1 PACK (2 CLOTHS)(taper/protocol) TOP SCH (04:00)
[2017-01-24] MEDS: NITROGLYCERIN 2% OINT 1 GM PACKET TOP SCH ×2 (05:47→11:17)
[2017-01-24] MEDS: PANTOPRAZOLE SOD 40 MG DELAYED RELEASE TAB PO SCH (08:15)
[2017-01-24] MEDS: SODIUM CHLORIDE 0.9% FLUSH 5 ML FLUSH IV SCH (08:16)
[2017-01-24] MEDS: ASPIRIN 325 MG TAB PO SCH (08:16)
[2017-01-24] MEDS: METOPROLOL TARTRATE 25 MG TAB PO SCH (08:18)
[2017-01-24] MEDS: amLODIPine BESYLATE 5 MG TAB PO SCH (08:20)
[2017-01-24] MEDS: SODIUM CHLOR 0.9% 1000 ML INJ 1,000 ML IV SCH ×2 (08:30→08:58)
--- NOTE | 2017-01-24 08:31 | HHI.PR ---
Subjective Remarks resting comfortably with no distress. says that had a good night. no chest pain or sob. d/w the RN and no acute issues over night. wants to go home today. Objective Vitals Vital Signs Date Time Temp Pulse Resp B/P Pulse Ox O2 Delivery O2 Flow Rate FiO2 01/24/17 06:00 61 01/24/17 05:00 69 01/24/17 04:00 98.1 65 18 130/66 97 01/24/17 04:00 65 01/24/17 03:00 67 01/24/17 02:00 65 01/24/17 01:00 64 01/24/17 00:00 66 01/24/17 00:00 98.0 69 18 126/65 97 01/23/17 23:00 67 01/23/17 22:00 63 01/23/17 21:00 70 01/23/17 20:00 76 01/23/17 19:00 80 01/23/17 19:00 96 Room Air 01/23/17 19:00 98.3 71 18 151/97 96 01/23/17 18:03 76 01/23/17 17:18 74 01/23/17 16:05 98.1 58 18 148/77 99 01/23/17 16:01 57 01/23/17 15:32 63 01/23/17 14:27 98.6 65 16 145/82 98 01/23/17 12:01 63 01/23/17 11:54 66 01/23/17 11:24 98.9 64 18 143/78 99 01/23/17 10:44 64 01/23/17 09:04 73 I/O 01/23/17 01/23/17 01/23/17 01/24/17 01/24/17 01/24/17 07:00 15:00 23:00 07:00 15:00 23:00 Intake Total 814 ml 1420 ml 360 ml Output Total 1100 ml 350 ml Balance -286 ml 1420 ml 10 ml Intake Oral 480 ml 420 ml 360 ml IV Total 334 ml 1000 ml Output Urine Total 1100 ml 350 ml # Voids 3 4 # Bowel Movements 0 0 Result Diagram: 01/23/17 1007 01/23/17 1007 Imaging Last Impressions Chest X-Ray 01/20/17 1632 Signed Impressions: Service Date/Time: Friday, January 20, 2017 17:02 - CONCLUSION: 1. No acute cardiopulmonary disease. Alvarez Lopez MD Objective Remarks GENERAL: This is a well-nourished, well-developed patient, in no apparent distress. CARDIOVASCULAR: Regular rate and regular rhythm without murmurs, gallops, or rubs. RESPIRATORY: Clear to auscultation. Breath sounds equal bilaterally. No wheezes , rales, or rhonchi. GASTROINTESTINAL: Abdomen soft, non-tender, nondistended. Normal, active bowel sounds MUSCULOSKELETAL: Extremities without clubbing, cyanosis, or edema. NEURO: Alert & Oriented x4 to person, place, time, situation. Moves all ext x4 Procedures none Medications and IVs Current Medications Aspirin (Aspirin Chew) 162 mg ONCE ONCE PO ; Start 01/20/17 at 16:45; Stop at 17:23; Status DC IV Flush (NS Flush) 2 ml UNSCH PRN IVF FLUSH AFTER USING IV ACCESS; Start at 16:45; Stop 01/20/17 at 18:05; Status DC Metoclopramide HCl (Reglan Inj) 10 mg ONCE ONCE IV PUSH Last administered on 17:09; Start 01/20/17 at 16:45; Stop 01/20/17 at 16:46; Status DC Aspirin (Aspirin Chew) 81 mg ONCE ONCE PO Last administered on 01/20/17 17:30 ; Start 01/20/17 at 17:30; Stop 01/20/17 at 17:31; Status DC Enoxaparin Sodium (Lovenox Inj) 140 mg ONCE ONCE SQ Last administered on 18:36; Start 01/20/17 at 18:00; Stop 01/20/17 at 18:01; Status DC IV Flush (NS Flush) 2 ml BID IV Last administered on 01/24/17 08:16; Start 01/20 at 21:00 IV Flush (NS Flush) 2 ml UNSCH PRN IV FLUSH AFTER USING IV ACCESS; Start at 18:00 Aspirin (Aspirin) 325 mg DAILY PO Last administered on 01/24/17 08:16; Start at 09:00 Metoprolol Tartrate (Lopressor) 25 mg BID PO Last administered on 01/24/17 08: 18; Start 01/20/17 at 21:00 Nitroglycerin (Nitroglycerin 2% Oint) 0.5 inch Q6HR TOP Last administered on 00:20; Start 01/20/17 at 18:00 Acetaminophen (Tylenol) 500 mg Q4H PRN PO HEADACHE; Start 01/20/17 at 18:00 Acetaminophen/ Hydrocodone Bitart ([place] 7.5-325 Mg) 1 tab Q4H PRN PO PAIN SCALE 1 TO 5; Start 01/20/17 at 18:00 Morphine Sulfate (Morphine Inj) 2 mg Q5M PRN IV PAIN SCALE 6 TO 10; Start at 18:00 Pantoprazole Sodium (Protonix) 40 mg DAILY PO Last administered on 01/24/17 08: 15; Start 01/21/17 at 09:00 Temazepam (Restoril) 15 mg HS PRN PO INSOMNIA; Start 01/20/17 at 21:00 Alprazolam (Xanax) 0.25 mg TID PRN PO ANXIETY; Start 01/20/17 at 18:00 Enoxaparin Sodium (Lovenox Inj) 140 mg Q12H SQ ; Start 01/21/17 at 06:00; Stop at 12:57; Status DC Ondansetron HCl (Zofran Inj) 4 mg Q6H PRN IV NAUSEA; Start 01/20/17 at 18:00 Docusate Sodium (Colace) 100 mg BID PRN PO CONSTIPATION; Start 01/20/17 at 18:00 Magnesium Hydroxide (Milk Of Magnesia Liq) 30 ml DAILY PRN PO for Severe Constipation; Start 01/20/17 at 18:00 Calcium Carbonate (Tums Chew) 1,000 mg TID PRN CHEW DYSPEPSIA; Start 01/20/17 at 18:00 Amlodipine Besylate (Norvasc) 2.5 mg DAILY PO Last administered on 01/24/17 08: 20; Start 01/21/17 at 09:00 Pravastatin Sodium (Pravachol) 40 mg HS PO Last administered on 01/20/17 22:07 ; Start 01/20/17 at 21:00; Stop 01/21/17 at 13:00; Status DC Miscellaneous Information Patient in critical care unit? Ass... Q361D XX ; Start 01/20/17 at 21:30 Chlorhexidine Gluconate (Chlorhexidine 2% Cloth) 3 pack DAILY@04 TOP Last administered on 01/21/17 04:00; Start 01/21/17 at 04:00; Stop 01/25/17 at 04:01 Chlorhexidine Gluconate 3 pack 3 pack UNSCH PRN TOP HYGIENIC CARE; Start at 21:30; Stop 01/25/17 at 21:28 Sodium Chloride (NS 1000 ml Inj) 1,000 ml @ 70 mls/hr [id number] IV Last administered on 01/23/17 00:24; Start 01/21/17 at 09:00 Enoxaparin Sodium (Lovenox Inj) 100 mg Q12H SQ Last administered on 01/22/17 14 :28; Start 01/21/17 at 14:00; Stop 01/22/17 at 14:44; Status DC Pravastatin Sodium 80 mg 80 mg HS PO Last administered on 01/22/17 19:59; Start 01/21/17 at 21:00; Stop 01/23/17 at 14:49; Status DC Sodium Chloride (NS 1000 ml Inj) 1,000 ml @ 30 mls/hr Q24H IV ; Start 01/23/17 at 08:58; Stop 01/28/17 at 08:57 Aspirin (Aspirin) 325 mg CVICU NURSE PO ; Start 01/23/17 at 09:00; Stop 01/27/17 at 08:59 Midazolam HCl (Versed Inj) 2 mg STK-MED ONCE .ROUTE Last administered on 12:37; Start 01/23/17 at 12:37; Stop 01/23/17 at 12:38; Status DC Fentanyl Citrate (fentaNYL INJ) 100 mcg STK-MED ONCE .ROUTE Last administered on 01/23/17 13:12; Start 01/23/17 at 13:12; Stop 01/23/17 at 13:13; Status DC Heparin Sodium (Porcine) (Heparin Inj) 10,000 units STK-MED ONCE .ROUTE Last administered on 01/23/17 13:37; Start 01/23/17 at 13:37; Stop 01/23/17 at 13:38; Status DC Prasugrel (Effient) 60 mg STK-MED ONCE .ROUTE Last administered on 01/23/17 14: 02; Start 01/23/17 at 14:02; Stop 01/23/17 at 14:03; Status DC Iohexol 100 ml 100 ml STK-MED ONCE OTHER ; Start 01/23/17 at 14:05; Stop 01/23/17 at 14:42; Status DC Sodium Chloride (NS 1000 ml Inj) 1,000 ml @ 100 mls/hr Q10H IV ; Start 01/23/17 at 14:45; Stop 01/24/17 at 02:44; Status DC Oxycodone/ Acetaminophen (Percocet 5-325 Mg) 1 tab Q4H PRN PO PAIN SCALE 3 TO 5; Start 01/23/17 at 14:45 Oxycodone/ Acetaminophen (Percocet 10-325 Mg) 1 tab Q4H PRN PO PAIN SCALE 6 TO 10; Start 01/23/17 at 14:45 Temazepam (Restoril) 15 mg HS PRN PO SLEEP; Start 01/23/17 at 14:45 Aspirin (Aspirin Chew) 81 mg DAILY PO ; Start 01/23/17 at 14:45 Prasugrel (Effient) 10 mg DAILY PO Last administered on 01/24/17 08:15; Start 01/24/17 at 09:00 Miscellaneous Information 1 ONCE ONCE XX ; Start 01/23/17 at 14:45; Stop at 14:56; Status DC Atropine Sulfate 0.5 mg 0.5 mg UNSCH PRN IV VAGAL REPONSE; Start 01/23/17 at 14: 45 Sodium Chloride (NS 250 ml Inj) 250 ml @ 500 mls/hr ONCE PRN IV VAGAL REPONSE ; Start 01/23/17 at 14:45; Stop 01/24/17 at 14:44 Ondansetron HCl (Zofran Inj) 4 mg Q4H PRN IV NAUSEA; Start 01/23/17 at 14:45 Bacitracin (Bacitracin Oint Packet) 0.9 gm ONCE ONCE TOP ; Start 01/23/17 at 14: 45; Stop 01/23/17 at 14:49; Status DC Atorvastatin Calcium (Lipitor) 10 mg HS PO Last administered on 3/6/17at 20:39 ; Start 01/23/17 at 21:00 A/P Assessment and Plan A/P - NSTEMI s/p cardiac cath/ stent placement continue aspirin, BB, lovenox and statin- awaiting cardiology follow-up and recommendations. -hypertension; continue norvasc and BB- will monitor and adjust the regimen as needed. -DVT prophylaxis; on lovenox Discharge Planning dc home when ok with and cleared by cardiology. see med list. f/u; pcp and cardiology. d/w the patient and RN. Param Eisenberg MD Jan 24, 2017 08:31
[2017-01-24] MEDS ORDERED: METO25TA3 PO (08:34)
[2017-01-24] MEDS ORDERED: PRAS10TA PO (08:34)
[2017-01-24] MEDS ORDERED: ATOR40TA16 PO (08:34)
--- NOTE | 2017-01-24 08:35 | HHI.DCPOC ---
Discharge Care Plan Diagnosis: (1) NSTEMI (non-ST elevated myocardial infarction) Your Health Problems Are: Chest Pain Goals to Promote Your Health * To prevent worsening of your condition and complications * To maintain your health at the optimal level Directions to Meet Your Goals Take your medications as prescribed Follow your dietary instruction Follow activity as directed Keep your appointments as scheduled Take your immunizations and boosters as scheduled If your symptoms worsen call your PCP, if no PCP go to Urgent Care Center or Emergency Room Smoking is Dangerous to Your Health. Avoid second hand smoke Call the 24-hour hour crisis hotline for domestic abuse at Param Eisenberg MD Jan 24, 2017 08:35
--- NOTE | 2017-01-24 08:36 | HHI.DS ---
Discharge Summary Admission Date Jan 20, 2017 at 17:50 Discharge Date: Jan 24, 2017 Admitting Diagnosis NSTEMI, nausea (1) NSTEMI (non-ST elevated myocardial infarction) ICD Code: I21.4 Diagnosis: Principal Procedures cardiac cath. Brief History - From Admission patient is a 61 y/o male with history of hypertension who presented to ER with nausea. he says that he was at his usual state of health till yesterday when he started to have nausea. he says that he checked his blood pressure at the time and it was around 190's/ 110's. then he decided to come to the hospital. he denies any chest pain, sob, dizziness or diaphoresis. he had a heart catheterization in 2010 and being followed up by . at the time of my evaluation he was resting comfortably with no chest pain. CBC/BMP: 01/23/17 1007 01/23/17 1007 Significant Findings Laboratory Tests Test 01/21/17 01/22/17 01/23/17 09:05 04:44 10:07 Activated Partial 68.3 SEC Thromboplast Time (24.3-30.1) Troponin I 4.08 NG/ML (0.02-0.05) Monocytes (%) (Auto) 9.5 % (0.0-8.0) Estimat Glomerular Filtration 62 ML/MIN (>89) Rate Imaging Last Impressions Chest X-Ray 01/20/17 1632 Signed Impressions: Service Date/Time: Friday, January 20, 2017 17:02 - CONCLUSION: 1. No acute cardiopulmonary disease. Alvarez Lopez MD PE at Discharge GENERAL: This is a well-nourished, well-developed patient, in no apparent distress. CARDIOVASCULAR: Regular rate and regular rhythm without murmurs, gallops, or rubs. RESPIRATORY: Clear to auscultation. Breath sounds equal bilaterally. No wheezes , rales, or rhonchi. GASTROINTESTINAL: Abdomen soft, non-tender, nondistended. Normal, active bowel sounds MUSCULOSKELETAL: Extremities without clubbing, cyanosis, or edema. NEURO: Alert & Oriented x4 to person, place, time, situation. Moves all ext x4 Hospital Course - NSTEMI s/p cardiac cath continue aspirin, BB, effient and statin- -hypertension; continue norvasc and BB- Pt Condition on Discharge: Good Discharge Disposition: Discharge Home Discharge Time: <= 30 minutes Discharge Instructions DIET: Follow Instructions for: Heart Healthy Diet Activities you can perform: Regular-No Restrictions Follow up Referrals: Cardiology PCP Follow-up New Medications: Atorvastatin (Atorvastatin) 40 Mg Tab 40 MG PO HS Cholesterol Management #30 Ref 0 TAB Metoprolol Tartrate (Metoprolol Tartrate) 25 Mg Tab 25 MG PO BID cad Days 30 Ref 0 TAB Prasugrel (Effient) 10 Mg Tab 10 MG PO DAILY cad Days 30 Ref 0 TAB Continued Medications: Amlodipine (Amlodipine) 2.5 Mg Tab 2.5 MG PO DAILY Blood Pressure Management #30 Ref 0 TAB Aspirin (Aspirin) 81 Mg Tabdr 81 MG PO DAILY TAB Testosterone Cypionate Inj (Testosterone Cypionate Inj) 100 Mg/Ml Inj 100 MG IM ONCE Hormone Replacement #1 Ref 0 INJECTION Discontinued Medications: Pitavastatin (Livalo) 2 Mg Tab 2 MG PO HS Cholesterol Management #30 Ref 0 TAB Param Eisenberg MD Jan 24, 2017 08:36
[2017-01-24] MEDS ORDERED: PRASUGREL 10 MG TAB PO SCH (09:00)
--- NOTE | 2017-01-24 09:38 | EKG ---
Date Performed: 01/24/2017 Time Performed: 06:05:02 PTAGE: 61 years EKG: Sinus rhythm Left axis deviation Poor R wave progression Abnormal ECG PREVIOUS TRACING : 01/21/2017 14.16 No significant change from previous tracing noted. DOCTOR: Mitch Spaulding Interpretating Date/Time 01/24/2017 09:36:26
--- NOTE | 2017-01-24 12:29 | MA ---
cc: FREDERICK ELISE M.D., MOHAMMADREZA MD SAXOUR, JOANNE D. M.D. DATE 01/23/2017 PROCEDURE PERFORMED 1. Cardiac catheterization 2. Bilateral coronaries 3. No LV gram 4. Intracoronary stent placement to the right coronary INDICATIONS Non-STEMI CONSENT A fully informed consent was obtained prior to the procedure. The risks of , bleeding, myocardial infarction, perforation, aspiration, foreseen and unforeseen complications were reviewed. The patient fully appeared to understand. PROCEDURAL STATEMENT The patient was prepped and draped in the usual manner. The right femoral artery was entered using a micropuncture technique with ultrasound. Via the 4 [place] sheath, left and right coronary catheters were used to intubate the left and right coronaries. The LV gram was not performed. Following the heart catheterization, the 4-[place] sheath was exchanged for a 6-[place]enezuelan sheath. A 6-[place] JR-4 catheter was used to intubate the right coronary. Through this, a 0.014 [place] wire was placed deep into the right coronary. Over this, a 4.0 x 18 mm stent was passed throughout the long right coronary lesion and deployed at 12 atmospheres and then post-dilated with two balloon inflations with a Euphora noncompliant balloon 12 x 4 to 19 atmospheres. At the end of the procedure, all wires and catheters were removed. A right femoral angiogram was performed and Angio-Seal placed in the usual manner. FINDINGS HEMODYNAMIC RESULTS The aortic pressure was 114/60 with a mean of 83. LV was not entered in the interest of contrast sparing. CORONARIES The left main was a long vessel and showed no evidence of significant disease. The left anterior descending artery was a large vessel with a large first diagonal branch that was free of significant disease. There was a medium sized intermediate ramus branch which bifurcated into two sub-branches that had some diffuse 50% disease. There was a small circumflex vessel which gave off a medium sized obtuse marginal one. In the proximal obtuse marginal one was a 90% stenosis just after a sub-branch in the obtuse marginal branch which was small. There is evidence of collateral filling of a distal vessel with the last injection which was most likely the occluded obtuse marginal branch. The right coronary artery was diffusely diseased proximally. There is a long complex lesion of the proximal right coronary. Proximally there was a 50% stenosis and there was post-stenotic dilation and following the post-stenotic dilation and aneurysmal section, there was a very unstable plaque with evidence of fresh thrombus on it at about 75%. During the injection of the right coronary, significant STT wave changes occurred with deep T-waves of the right coronary suggesting a complex lesion which was further noted angiographically. Following stent place and post-stent dilation, the long lesion was reduced to 0%. CONCLUSION Evidence of significant stenosis of the right coronary, high-grade stenosis of the circumflex, a total occlusion of the OM-1 branch. We will reassess the ejection fraction with an Echo, a drug eluting stent Resolute 18 mm x 4.0 inflated to almost 4.2 mm inflated in the right coronary ELVIRA grade flow. The patient was given 60 mg of Effient. PLAN We will plan to discharge the patient tomorrow. The patient will follow up in my office in approximately one to two weeks' time and follow up with Dr. Sandra Moreno in due course. Frederick Elise MD, FRCP,[facility]/[place]ORINDA /2:24 PM /12:29 PM
--- NOTE | 2017-01-24 13:28 | PD.CARD.PN ---
Subjective Subjective Remarks The patient denies CP or SOB. No groin site pain or bleeding. Objective Medications Current Medications Medications (Trade) Dose Ordered Sig/Maeve Route Start Time Stop Time Status Last Admin (NS Flush) 2 ml BID IV 01/20/17 21:00 01/24/17 08:16 (NS Flush) 2 ml UNSCH PRN IV 01/20/17 18:00 (Aspirin) 325 mg DAILY PO 01/21/17 09:00 01/24/17 08:16 (Lopressor) 25 mg BID PO 01/20/17 21:00 01/24/17 08:18 (Nitroglycerin 2% Oint) 0.5 inch Q6HR TOP 01/20/17 18:00 01/23/17 00:20 (Tylenol) 500 mg Q4H PRN PO 01/20/17 18:00 ([place] 7.5-325 Mg) 1 tab Q4H PRN PO 01/20/17 18:00 (Morphine Inj) 2 mg Q5M PRN IV 01/20/17 18:00 (Protonix) 40 mg DAILY PO 01/21/17 09:00 01/24/17 08:15 (Restoril) 15 mg HS PRN PO 01/20/17 21:00 (Xanax) 0.25 mg TID PRN PO 01/20/17 18:00 (Zofran Inj) 4 mg Q6H PRN IV 01/20/17 18:00 (Colace) 100 mg BID PRN PO 01/20/17 18:00 (Milk Of Magnesia Liq) 30 ml DAILY PRN PO 01/20/17 18:00 (Tums Chew) 1,000 mg TID PRN CHEW 01/20/17 18:00 (Norvasc) 2.5 mg DAILY PO 01/21/17 09:00 01/24/17 08:20 Miscellaneous Information Patient in critical care unit? Ass... [id number] XX 01/20/17 21:30 (Chlorhexidine 2% Cloth) 3 pack DAILY@04 TOP 01/21/17 04:00 01/25/17 04:01 01/21/17 04:00 Chlorhexidine Gluconate 3 pack 3 pack UNSCH PRN TOP 01/20/17 21:30 01/25/17 21:28 Sodium Chloride 1,000 ml @ 70 mls/hr [id number] IV 01/21/17 09:00 01/23/17 00:24 (NS 1000 ml Inj) 1,000 ml @ 30 mls/hr Q24H IV 01/23/17 08:58 01/28/17 08:57 (Percocet 5-325 Mg) 1 tab Q4H PRN PO 01/23/17 14:45 (Percocet 10-325 Mg) 1 tab Q4H PRN PO 01/23/17 14:45 (Restoril) 15 mg HS PRN PO 01/23/17 14:45 (Aspirin Chew) 81 mg DAILY PO 01/23/17 14:45 (Effient) 10 mg DAILY PO 01/24/17 09:00 01/24/17 08:15 Atropine Sulfate 0.5 mg 0.5 mg UNSCH PRN IV 01/23/17 14:45 (NS 250 ml Inj) 250 ml @ 500 mls/hr ONCE PRN IV 01/23/17 14:45 01/24/17 14:44 (Zofran Inj) 4 mg Q4H PRN IV 01/23/17 14:45 (Lipitor) 10 mg HS PO 01/23/17 21:00 01/23/17 20:39 Vital Signs / I&O Vital Signs Date Time Temp Pulse Resp B/P Pulse Ox O2 Delivery O2 Flow Rate FiO2 01/24/17 10:00 74 01/24/17 09:00 68 01/24/17 08:24 97 Room Air 01/24/17 08:24 65 01/24/17 08:24 97.4 82 18 145/88 97 01/24/17 06:00 61 01/24/17 05:00 69 01/24/17 04:00 98.1 65 18 130/66 97 01/24/17 04:00 65 01/24/17 03:00 67 01/24/17 02:00 65 01/24/17 01:00 64 01/24/17 00:00 66 01/24/17 00:00 98.0 69 18 126/65 97 01/23/17 23:00 67 01/23/17 22:00 63 01/23/17 21:00 70 01/23/17 20:00 76 01/23/17 19:00 80 01/23/17 19:00 96 Room Air 01/23/17 19:00 98.3 71 18 151/97 96 01/23/17 18:03 76 01/23/17 17:18 74 01/23/17 16:05 98.1 58 18 148/77 99 01/23/17 16:01 57 01/23/17 15:32 63 01/23/17 14:27 98.6 65 16 145/82 98 I/O 01/23/17 01/23/17 01/23/17 01/24/17 01/24/17 01/24/17 07:00 15:00 23:00 07:00 15:00 23:00 Intake Total 814 ml 1420 ml 360 ml Output Total 1100 ml 350 ml Balance -286 ml 1420 ml 10 ml Intake Oral 480 ml 420 ml 360 ml IV Total 334 ml 1000 ml Output Urine Total 1100 ml 350 ml # Voids 3 4 # Bowel Movements 0 0 Physical Exam GENERAL: Obese middle aged male sitting up in chair SKIN: Warm and dry. HEAD: Normocephalic. EYES: No scleral icterus. No injection or drainage. NECK: Supple, trachea midline. No JVD or lymphadenopathy. CARDIOVASCULAR: Regular rate and rhythm without murmurs, gallops, or rubs. Right groin dressing C/D/I RESPIRATORY: Breath sounds equal bilaterally. No accessory muscle use. GASTROINTESTINAL: Abdomen soft, non-tender, nondistended. MUSCULOSKELETAL: No cyanosis, or edema. BACK: Nontender without obvious deformity. No CVA tenderness. Assessment and Plan Assessment and Plan ASSESSMENT: NSTEMI ASHD s/p cardiac cath 01/23/2017- Evidence of significant stenosis of the right coronary, high-grade stenosis of the circumflex, a total occlusion of the OM-1 branch. We will reassess the ejection fraction with an Echo, a drug eluting stent Resolute 18 mm x 4.0 inflated to almost 4.2 mm inflated in the right coronary ELVIRA grade flow. No LV completed. HTN HLD OBESE PLAN: Ok for discharge from cardiac standpoint. He will follow up in the office in 1- 2 weeks with echocardiogram. He understands to maintain light activity until seen in the office. Discussed importance of Effient. Rx on chart Lipitor 40 mg PO daily ASA, BB Assessment and plan discussed with Nancy Keller Jan 24, 2017 13:28
[2017-01-24] MEDS ORDERED: NITR1SUB3 SL (13:29)
== END 2017-01-24 14:44 | disposition home or self-care (01) | DRG 247 ==
LOC: PHED 16:11 → PHEDA 17:50 → HIMW 21:10 → HCIS 01-21 14:42
PROVIDERS: ADMIT Internal Medicine; ATTEND Internal Medicine
PROC: 4A023N7 Measurement of Cardiac Sampling and Pressure, Left Heart, Percutaneous Approach (ICD-10-PCS; 2017-01-23)
PROC: B2111ZZ Fluoroscopy of Multiple Coronary Arteries using Low Osmolar Contrast (ICD-10-PCS; 2017-01-23)
PROC: 027034Z Dilation of Coronary Artery, One Artery with Drug-eluting Intraluminal Device, Percutaneous Approach (ICD-10-PCS; principal; 2017-01-23 12:15)
DX: I21.4 Non-ST elevation (NSTEMI) myocardial infarction (principal); Z68.41 Body mass index [BMI] 40.0-44.9, adult; I10 Essential (primary) hypertension; I25.10 Atherosclerotic heart disease of native coronary artery without angina pectoris; E78.5 Hyperlipidemia, unspecified; K64.9 Unspecified hemorrhoids; E66.9 Obesity, unspecified; R11.0 Nausea; Z82.49 Family history of ischemic heart disease and other diseases of the circulatory system
CPT/HCPCS: 71010; 76937; 80048; 80053; 80061; 82550; 82552; 83735; 84484; 85002; 85014; 85018; 85025; 85610; 85730; 87641; 92928; 93005; 93454; 96374; C1725; C1760; C1769; C1874; C1887; C1893; G0269; J1644; J1650; J2250; J2765; J3010; J7030; Q9967

== ENCOUNTER 2017-05-08 14:53 | Emergency (ER) | payer BC ==
[~2017-05-08] VITALS: Ht 185.4 cm; Wt 129.0 kg
[~2017-05-08 14:53] MED LIST changes: +ASPI1TAB69 PO; +ATOR40TA16 PO; +METO25TA3 PO; +NITR1SUB3 SL; +PRAS10TA PO; -ST JTAB PO; +TEST1INJ3 IM
[2017-05-08 15:06] VITALS: BP 128/79; PULSE 83; RESP 17; TEMP 97.8; O2SAT 98
[2017-05-08] MEDS ORDERED: METO25TA3 PO (15:15)
[2017-05-08] MEDS ORDERED: ASPI81CH37 CHEW (15:15)
--- NOTE | 2017-05-08 15:49 | PD ---
HPI Chief Complaint: Head Injury Time Seen by Provider: 15:46 Travel History International Travel<30 days: No Contact w/Intl Traveler<30days: No Traveled to known affect area: No History of Present Illness HPI 62-year-old male presents to the emergency room for evaluation of laceration to the top of his head that occurred 3 hours prior to arrival. Patient was looking in a wooden chest when the lid fell down and the metal latch cut the top of his head. He applied pressure and washed the wound immediately. Patient is on Effient and states the bleeding was moderate but controlled. He denies dizziness, loss consciousness, headache, nausea, vomiting, photophobia, or changes in mentation. Last tetanus was less than 5 years ago. PFSH Past Medical History Cardiovascular Problems: Yes High Cholesterol: Yes Coronary Artery Disease: Yes Diminished Hearing: No Headaches: Yes Hypertension: Yes Immunizations Current: Yes (SHINGLES) Myocardial Infarction: Yes Tetanus Vaccination: < 5 Years Influenza Vaccination: Yes Past Surgical History Abdominal Surgery: Yes (appendix) Appendectomy: Yes Coronary Stent: Yes Endocrine Surgery: Yes (TA) Tonsillectomy: Yes (adnoids) Other Surgery: Yes (nose) Family History Family Hypercholesterolemia: Yes Social History Alcohol Use: Yes (occasional) Tobacco Use: No Substance Use: No Allergies-Medications (Allergen,Severity, Reaction): Coded Allergies: Codeine (Verified Allergy, Unknown, 05/08/17) Reported Meds & Prescriptions Reported Meds & Active Scripts Active Nitroglycerin SL (Nitroglycerin) 0.4 Mg Subl 0.4 Mg SL DIRECTED PRN ONE TABLET UNDER THE TONGUE NEEDED FOR CHEST PAIN, MAY REPEAT EVERY FIVE MINUTES FOR A TOTAL OF 3 DOSES OR CALL 911 IF NO RELIEF Atorvastatin (Atorvastatin Calcium) 40 Mg Tab 40 Mg PO HS Effient (Prasugrel) 10 Mg Tab 10 Mg PO DAILY 30 Days Reported Aspirin Low Dose (Aspirin) 81 Mg Chew 81 Mg CHEW DAILY Metoprolol Tartrate 25 Mg Tab 25 Mg PO DAILY Testosterone Cypionate Inj (Testosterone Cypionate) 100 Mg/Ml Inj 100 Mg IM ONCE Amlodipine (Amlodipine Besylate) 2.5 Mg Tab 2.5 Mg PO DAILY Review of Systems Except as stated in HPI: all other systems reviewed are Neg Physical Exam Narrative GENERAL: Well-nourished, well-developed male in no acute distress. Afebrile. Ambulatory. SKIN: Focused skin assessment warm/dry. There is a 1.5 cm well approximated superficial laceration to the right parietal scalp. It is not bleeding. Mild hematoma below the laceration. HEAD: Normocephalic. EYES: No scleral icterus. No injection or drainage. NECK: Supple, trachea midline. No JVD or lymphadenopathy. CARDIOVASCULAR: Regular rate and rhythm without murmurs, gallops, or rubs. RESPIRATORY: Breath sounds equal bilaterally. No accessory muscle use. NEUROLOGICAL: Awake and alert. Cranial nerves II through XII intact. Motor and sensory grossly within normal limits. Five out of 5 muscle strength in all muscle groups. Normal speech. Data Data Last Documented VS Vital Signs Date Time Temp Pulse Resp B/P Pulse Ox O2 Delivery O2 Flow Rate FiO2 05/08/17 15:06 97.8 83 17 128/79 98 MDM Medical Decision Making Medical Screen Exam Complete: Yes Emergency Medical Condition: Yes Medical Record Reviewed: Yes Differential Diagnosis Laceration, hematoma, contusion Narrative Course 62-year-old male presents to the emergency room for evaluation of a laceration to his right parietal head for the past 4 hours. Patient sustained a laceration after a wooden lid of a chest closed on him and the metal latch punctured his skin. Patient washed the wound and applied pressure. He is on Effient. He denies headache, dizziness, nausea, vomiting, loss of consciousness. Last tetanus was one year ago. No focal neurological deficits. No indication for imaging at this time. There is a 1.5 cm superficial, well- approximated laceration to the right parietal scalp. The laceration was thoroughly cleansed and repaired with kristopher, see procedure note for details. Patient discharged with wound care instructions and told to follow up with PCP or return for worsening symptoms. He understands and agrees to plan. Procedures Procedure Narrative LACERATION LOCATION: Right parietal scalp LENGTH: 1.5 cm NUMBER OF STITCHES/KRISTOPHER: 2 kristopher REPAIR: The area of the laceration was prepped with chlorhexidine. Patient was offered lidocaine but declined. The wound was copiously irrigated and explored without evidence of foreign body, tendon injury or neurovascular injury. The wound was closed using staple gun. This was a single layer repair. A sterile dressing was applied. The patient was advised to keep the dressing clean and dry. Patient tolerated the procedure well. Diagnosis Primary Impression: Laceration of head Qualified Code: S01.01XA - Laceration of scalp without foreign body, initial encounter Referrals: Primary Care Physician Patient Instructions: General Instructions, Laceration (ED) Additional Instructions: Rest and drink plenty of fluids. Keep wound clean and dry. Apply triple antibiotic ointment daily. Kristophre out in 7 days. Follow-up with a primary care physician. Return to the emergency room for worsening symptoms. Disposition: 01 DISCHARGE HOME Condition: Stable Teresa Holguin May 08, 2017 15:49
== END 2017-05-08 15:58 | disposition home or self-care (01) ==
LOC: PHEFT 14:53
DX: S01.01XA Laceration without foreign body of scalp, initial encounter (principal); E78.00 Pure hypercholesterolemia, unspecified; I25.10 Atherosclerotic heart disease of native coronary artery without angina pectoris; I10 Essential (primary) hypertension; Z79.01 Long term (current) use of anticoagulants; W20.8XXA Other cause of strike by thrown, projected or falling object, initial encounter; Y93.89 Activity, other specified; Y92.9 Unspecified place or not applicable; Y99.8 Other external cause status
CPT/HCPCS: 12001

== ENCOUNTER 2017-12-25 00:50 | Inpatient (IN) | payer BC ==
[2017-12-25] VITALS (11 sets, daily range): BP systolic 148–185; BP diastolic 67–98; PULSE 61–94; RESP 18–24; TEMP 97.4–101.4; O2SAT 93–100
[~2017-12-25] VITALS: Ht 185.4 cm; Wt 133.5 kg
[~2017-12-25 00:50] MED LIST changes: -ASPI1TAB69 PO; +ASPI81CH6 CHEW
[2017-12-25] MEDS ORDERED: SODIUM CHLOR 0.9% 1000 ML INJ 1,000 ML IV SCH ×2 (01:48→03:34)
--- NOTE | 2017-12-25 01:54 | PD ---
HPI Chief Complaint: Abdominal Pain Time Seen by Provider: 01:48 Travel History International Travel<30 days: No Contact w/Intl Traveler<30days: No Traveled to known affect area: No History of Present Illness HPI The patient is a 62-year-old male who complains of intermittent right upper quadrant abdominal pain for the last 24 hours. The patient does have nausea and vomiting. He denies any diarrhea. He denies any fever. The patient states that 4 years ago he had a gallbladder ultrasound with she apparently showed sludge. Nothing was done about this and he still has his gallbladder. The patient had pain after eating a meal tonight. He had pain yesterday but this went away. The patient is on as a because of coronary artery disease/ stents. PFSH Past Medical History Cardiovascular Problems: Yes (cardia stent from [place]) High Cholesterol: Yes Coronary Artery Disease: Yes Diminished Hearing: No Headaches: Yes Hypertension: Yes Immunizations Current: Yes (SHINGLES) Myocardial Infarction: Yes Tetanus Vaccination: Unknown ?: Not Past Surgical History Abdominal Surgery: Yes (appendix) Appendectomy: Yes Coronary Stent: Yes Endocrine Surgery: Yes (TA) Tonsillectomy: Yes (adnoids) Other Surgery: Yes (nose) Family History Family Hypercholesterolemia: Yes Social History Alcohol Use: Yes (occasional) Tobacco Use: No Substance Use: No Allergies-Medications (Allergen,Severity, Reaction): Coded Allergies: codeine (Verified Allergy, Unknown, 12/25/17) Reported Meds & Prescriptions Reported Meds & Active Scripts Active Nitroglycerin SL (Nitroglycerin) 0.4 Mg Subl 0.4 Mg SL DIRECTED PRN ONE TABLET UNDER THE TONGUE NEEDED FOR CHEST PAIN, MAY REPEAT EVERY FIVE MINUTES FOR A TOTAL OF 3 DOSES OR CALL 911 IF NO RELIEF Atorvastatin (Atorvastatin Calcium) 40 Mg Tab 40 Mg PO HS Effient (Prasugrel) 10 Mg Tab 10 Mg PO DAILY 30 Days Reported Aspirin Low Dose (Aspirin) 81 Mg Chew 81 Mg CHEW DAILY Metoprolol Tartrate 25 Mg Tab 25 Mg PO DAILY Amlodipine (Amlodipine Besylate) 2.5 Mg Tab 2.5 Mg PO DAILY Review of Systems Except as stated in HPI: all other systems reviewed are Neg Physical Exam Narrative GENERAL: The patient is obese, alert, oriented 3 in moderate distress with his right upper quadrant abdominal discomfort. His vital signs show blood pressure 183/98 and respirations of 24 but are otherwise normal. SKIN: Focused skin assessment warm/dry. HEAD: Atraumatic. Normocephalic. EYES: Pupils equal and round. No scleral icterus. No injection or drainage. ENT: No nasal bleeding or discharge. Mucous membranes pink and moist. NECK: Trachea midline. No JVD. CARDIOVASCULAR: Regular rate and rhythm. No murmur appreciated. RESPIRATORY: No accessory muscle use. Clear to auscultation. Breath sounds equal bilaterally. GASTROINTESTINAL: Abdomen soft, with tenderness to direct palpation in the right upper quadrant, nondistended. Hepatic and splenic margins not palpable. Jarrett's sign is negative. No guarding or rebound is present. MUSCULOSKELETAL: No obvious deformities. No clubbing. No cyanosis. No edema. NEUROLOGICAL: Awake and alert. No obvious cranial nerve deficits. Motor grossly within normal limits. Normal speech. PSYCHIATRIC: Appropriate mood and affect; insight and judgment normal. Data Data Last Documented VS Vital Signs Date Time Temp Pulse Resp B/P (MAP) Pulse Ox O2 Delivery O2 Flow Rate FiO2 12/25/17 03:11 70 22 178/88 (118) 95 Room Air 12/25/17 00:55 98.4 Orders Orders Complete Blood Count With Diff (12/25/17 01:17) Comprehensive Metabolic Panel (12/25/17 01:17) Urinalysis - C+S If Indicated (12/25/17 01:17) Iv Access Insert/Monitor (12/25/17 01:17) Oximetry (12/25/17 01:17) Lipase (12/25/17 01:17) Ct Abd/Pel W Iv Contrast(Rout) (12/25/17 01:48) Ondansetron Inj (Zofran Inj) (12/25/17 02:00) Sodium Chlor 0.9% 1000 Ml Inj (Ns 1000 M (12/25/17 01:48) Sodium Chloride 0.9% Flush (Ns Flush) (12/25/17 02:00) Hydromorphone Pf Inj (Dilaudid Pf Inj) (12/25/17 02:00) Hydromorphone Pf Inj (Dilaudid Pf Inj) (12/25/17 02:15) Iohexol 350 Inj (Omnipaque 350 Inj) (12/25/17 03:05) Labs Laboratory Tests Test 12/25/17 01:27 White Blood Count 14.6 TH/MM3 Red Blood Count 5.11 MIL/MM3 Hemoglobin 16.5 GM/DL Hematocrit 46.6 % Mean Corpuscular Volume 91.1 FL Mean Corpuscular Hemoglobin 32.3 PG Mean Corpuscular Hemoglobin Concent 35.4 % Red Cell Distribution Width 12.6 % Platelet Count 253 TH/MM3 Mean Platelet Volume 7.7 FL Neutrophils (%) (Auto) 71.9 % Lymphocytes (%) (Auto) 16.3 % Monocytes (%) (Auto) 10.2 % Eosinophils (%) (Auto) 1.0 % Basophils (%) (Auto) 0.6 % Neutrophils # (Auto) 10.5 TH/MM3 Lymphocytes # (Auto) 2.4 TH/MM3 Monocytes # (Auto) 1.5 TH/MM3 Eosinophils # (Auto) 0.1 TH/MM3 Basophils # (Auto) 0.1 TH/MM3 CBC Comment DIFF FINAL Differential Comment Urine Color YELLOW Urine Turbidity CLEAR Urine pH 6.0 Urine Specific [place] 1.022 Urine Protein NEG mg/dL Urine Glucose (UA) 100 mg/dL Urine Ketones NEG mg/dL Urine Occult Blood TRACE Urine Nitrite NEG Urine Bilirubin NEG Urine Leukocyte Esterase NEG Urine RBC 0-3 /hpf Urine Squamous Epithelial Cells 0-5 /hpf Urine Mucus FEW /lpf Microscopic Urinalysis Comment CULT NOT INDICATED Blood Urea Nitrogen 17 MG/DL Creatinine 1.00 MG/DL Random Glucose 169 MG/DL Total Protein 8.5 GM/DL Albumin 4.3 GM/DL Calcium Level 9.2 MG/DL Alkaline Phosphatase 107 U/L Aspartate Amino Transf (AST/SGOT) 22 U/L Alanine Aminotransferase (ALT/SGPT) 33 U/L Total Bilirubin 0.8 MG/DL Sodium Level 138 MEQ/L Potassium Level 3.7 MEQ/L Chloride Level 104 MEQ/L Carbon Dioxide Level 28.8 MEQ/L Anion Gap 5 MEQ/L Estimat Glomerular Filtration Rate 75 ML/MIN Lipase 209 U/L MDM Medical Decision Making Medical Screen Exam Complete: Yes Emergency Medical Condition: Yes Medical Record Reviewed: Yes Interpretation(s) The CBC shows a white count of 14,600 but is otherwise unremarkable. The urine shows 100 glucose but is otherwise normal and culture is not indicated. The complete metabolic profile shows a GFR of 75, glucose 169 and total protein of 8.5 but is otherwise unremarkable. The lipase is normal. Differential Diagnosis Cholelithiasis with colic, acute cholecystitis, pyelonephritis, colitis, appendicitis-unlikely, electrolyte disorder, anemia Narrative Course It is now 0336 and the patient is requesting more pain medications. He is already gotten 1 mg of Dilaudid IV. I discussed the patient with Dr. Tomas, the patient will be admitted to her. He is on Effient and this will have to wear off before the surgeons can operate on him. Impression: Acute cholecystitis Diagnosis Primary Impression: Acute cholecystitis Admitting Information Admitting Physician Requests: Admit Eladio Juárez MD Dec 25, 2017 01:54
[2017-12-25 01:56] LABS: AUTOMATED NEUTROPHIL # 10.5 TH/MM3 (1.8-7.7); BASOPHIL # 0.1 TH/MM3 (0-0.2); BASOPHIL % 0.6 % (0.0-2.0); EOSINOPHIL # 0.1 TH/MM3 (0-0.4); HEMATOCRIT 46.6 % (39.0-51.0); HEMOGLOBIN 16.5 GM/DL (13.0-17.0); LYMPH % 16.3 % (9.0-44.0); LYMPHOCYTE # 2.4 TH/MM3 (1.0-4.8); MEAN CELL VOLUME 91.1 FL (80.0-100.0); MEAN CORPUSCULAR HEMOGLOBIN 32.3 PG (27.0-34.0); MEAN CORPUSCULAR HGB CONC 35.4 % (32.0-36.0); MEAN PLATELET VOLUME 7.7 FL (7.0-11.0); MONO % 10.2 % (0.0-8.0); MONOCYTE # 1.5 TH/MM3 (0-0.9); NEUT % 71.9 % (16.0-70.0); PLATELET COUNT 253 TH/MM3 (150-450); RED BLOOD COUNT 5.11 MIL/MM3 (4.50-5.90); RED CELL DISTRIBUTION WIDTH 12.6 % (11.6-17.2); WHITE BLOOD COUNT 14.6 TH/MM3 (4.0-11.0)
[2017-12-25] MEDS ORDERED: SODIUM CHLORIDE 0.9% FLUSH 10 ML FLUSH IV FLUSH PRN ×2 (02:00→03:45)
[2017-12-25] MEDS ORDERED: HYDROmorphone HCL PF 1 MG/ML VIAL IVS ONE (02:00)
[2017-12-25] MEDS ORDERED: ONDANSETRON HCL 4 MG/2 ML VIAL IVP ONE (02:00)
[2017-12-25 02:01] LABS: BILIRUBIN, URINE NEG (NEG); BLOOD, URINE TRACE (NEG); GLUCOSE,URINE 100 mg/dL (NEG); KETONE, URINE NEG (NEG); NITRITE,URINE NEG (NEG); URINE LEUKOCYTE ESTERASE NEG (NEG)
[2017-12-25 02:04] LABS: CHLORIDE 104 MEQ/L (98-107); SODIUM (NA) 138 MEQ/L (136-145)
[2017-12-25 02:07] LABS: CALCIUM 9.2 MG/DL (8.5-10.1)
[2017-12-25 02:08] LABS: ALBUMIN 4.3 GM/DL (3.4-5.0); BICARBONATE 28.8 MEQ/L (21.0-32.0); BLOOD UREA NITROGEN 17 MG/DL (7-18); GLUCOSE,RANDOM 169 MG/DL (74-106)
[2017-12-25 02:11] LABS: ALT (GPT) 33 U/L (12-78); AST (GOT) 22 U/L (15-37); GLOMERULAR FILTRATION RATE 75 ML/MIN (>89)
[2017-12-25 02:12] LABS: TOTAL BILIRUBIN ADULT 0.8 MG/DL (0.2-1.0); TOTAL PROTEIN 8.5 GM/DL (6.4-8.2)
[2017-12-25 02:13] LABS: URINE COLOR YELLOW (YELLW/STRAW)
[2017-12-25 02:14] LABS: ALKALINE PHOSPHATASE 107 U/L (45-117); MUCUS URINE FEW /lpf (OCC)
[2017-12-25 02:15] LABS: RBC, URINE 0-3 /hpf (0-3); SQUAMOUS EPITHELIAL CELL URINE 0-5 /hpf (0-5)
[2017-12-25] MEDS ORDERED: HYDROmorphone HCL PF 2 MG/ML VIAL IV ONE (02:15)
[2017-12-25] MEDS ORDERED: IOHEXOL 350 MG/ML 10 ML VIAL (for RAD DIAG) IVCONTRAST ONE (03:05)
--- NOTE | 2017-12-25 03:26 | RADRPT ---
EXAM DATE/TIME: 12/25/2017 02:52 [facility] COMPARISON: No previous studies available for comparison. INDICATIONS : Epigastric pain. IV CONTRAST: 100 cc Omnipaque 350 (iohexol) IV ORAL CONTRAST: No oral contrast ingested. RADIATION DOSE: 22.42 CTDIvol (mGy) MEDICAL HISTORY : Cardiovascular disease. SURGICAL HISTORY : Appendectomy. ENCOUNTER: Initial ACUITY: 2 days PAIN SCALE: 10/10 LOCATION: Right upper quadrant TECHNIQUE: Volumetric scanning of the abdomen and pelvis was performed. Using automated exposure control and ad justment of the mA and/or kV according to patient size, radiation dose was kept as low as reasonably achievable to obtain optimal diagnostic quality images. DICOM format image data is available electro nically for review and comparison. FINDINGS: LOWER LUNGS: The visualized lower lungs are clear. LIVER: Homogeneous density without lesion. There is no dilation of the biliary tree. There are calcified n oncalcified stones in the gallbladder. The gallbladder is distended with diffuse gallbladder wall elsy ma. SPLEEN: Normal size without lesion. PANCREAS: Within normal limits. KIDNEYS: Normal in size and shape. There is no mass, stone or hydronephrosis. There is a 14 mm simple cyst at the lower pole of the left kidney. ADRENAL GLANDS: Within normal limits. VASCULAR: There is no aortic aneurysm. There is mild atherosclerotic disease and coronary artery calcification. BOWEL/MESENTERY: The stomach, small bowel, and colon demonstrate no acute abnormality. There is no free intraperitone al air or fluid. ABDOMINAL WALL: Within normal limits. RETROPERITONEUM: There is no lymphadenopathy. BLADDER: No wall thickening or mass. REPRODUCTIVE: Within normal limits. INGUINAL: There is no lymphadenopathy or hernia. MUSCULOSKELETAL: There are degenerative changes of the lumbar spine. CONCLUSION: 1. The gallbladder is abnormal. It contains stones and demonstrates wall thickening/edema. This findi ngs can be seen with acute cholecystitis. 2. No other acute finding is identified. Jersey Jimenez MD on December 25, 2017 at 3:20 Board Certified Radiologist. This report was verified electronically.
[2017-12-25] MEDS ORDERED: HYDROmorphone HCL PF 2 MG/ML VIAL IV PUSH PRN (03:45)
[2017-12-25] MEDS ORDERED: ONDANSETRON HCL 4 MG/2 ML VIAL IVP PRN (03:45)
[2017-12-25] MEDS ORDERED: LACTULOSE SYRUP 20 GM/30 ML CUP PO PRN (03:45)
[2017-12-25] MEDS ORDERED: BISACODYL 10 MG SUPP RECTAL PRN (03:45)
[2017-12-25] MEDS ORDERED: SENNOSIDES 8.6 MG TAB PO PRN (03:45)
[2017-12-25] MEDS ORDERED: MAGNESIUM HYDROXIDE SUSP 30 ML CUP PO PRN (03:45)
[2017-12-25] MEDS: PIPERACIL-TAZO 4.5 GM PREMIX 100 ML IV SCH ×4 (03:58→21:50)
[2017-12-25] MEDS ORDERED: HYDROmorphone HCL PF 1 MG/ML VIAL IVP ONE (04:30)
[2017-12-25] MEDS ORDERED: ONDANSETRON HCL 4 MG/2 ML VIAL IV ONE (04:30)
[2017-12-25] MEDS: HYDROmorphone HCL PF 2 MG/ML VIAL IV PUSH PRN ×5 (07:20→19:55)
[2017-12-25] MEDS: SODIUM CHLORIDE 0.9% FLUSH 10 ML FLUSH IV FLUSH SCH ×2 (09:00→20:00)
[2017-12-25] MEDS: METOPROLOL TARTRATE 25 MG TAB PO SCH (09:07)
[2017-12-25] MEDS: DOCUSATE SODIUM 50 MG/SENNA 8.6 MG TAB PO SCH ×2 (09:08→19:57)
[2017-12-25] MEDS: amLODIPine BESYLATE 5 MG TAB PO SCH (09:08)
[2017-12-25] MEDS: NS + KCL 20 MEQ INJ 1,000 ML IV SCH ×2 (10:06→19:56)
[2017-12-25] MEDS ORDERED: ENALAPRILAT 1.25 MG/ML VIAL IV PUSH PRN (10:30)
--- NOTE | 2017-12-25 10:41 | HHI.HP ---
cc: Sandra Moreno MD [facility] Primary Care Physician aSndra Moreno MD Admission Diagnosis acute cholecystitis Diagnoses: (1) Coronary artery disease (2) Hypertension (3) Nausea & vomiting (4) Acute cholecystitis (5) Sepsis Chief Complaint: Abdominal pain Travel History International Travel<30 Days: No Contact w/Intl Traveler <30 Da: No Traveled to Known Affected Are: No Sepsis Criteria SIRS Criteria (2 or more): Temp > 100.9 or < 96.8, WBC > 17360, < 4000 or > 10 % bands Sepsis Criteria (SIRS+source): Infect source susp/known Criteria Outcome: Meets sepsis criteria History of Present Illness The patient is a 62-year-old male who presented to the emergency department with complaint of right upper quadrant abdominal pain that started yesterday after eating a hamburger. He reports nausea and vomiting. Pain is 10/10. Reports mild constipation. He has had this pain intermittently, but it worsened significantly yesterday. Review of Systems Constitutional: DENIES: Fever, Chills, Night Sweats Eyes: DENIES: Blurred vision, Vision loss Ears, nose, mouth, throat: DENIES: Hearing loss Respiratory: DENIES: Cough, Wheezing, Sputum production, Shortness of breath Cardiovascular: DENIES: Chest pain, Palpitations, Dyspnea on Exertion, Lower Extremity Edema Gastrointestinal: COMPLAINS OF: Abdominal pain, Constipation, Nausea, Vomiting , DENIES: Diarrhea Genitourinary: DENIES: Urinary frequency, Urinary incontinence, Urgency, Hematuria, Dysuria, Nocturia Musculoskeletal: DENIES: Joint pain, Muscle aches Integumentary: DENIES: Pruritus, Rash Hematologic/lymphatic: DENIES: Bruising Neurologic: DENIES: Headache Past Family Social History Past Medical History Coronary artery disease Hyperlipidemia Hypertension History of shingles Past Surgical History Appendectomy Cardiac catheterization with stent placement Tonsillectomy/adenoidectomy Reported Medications Nitroglycerin SL (Nitroglycerin) 0.4 Mg Subl 0.4 Mg SL DIRECTED PRN ONE TABLET UNDER THE TONGUE NEEDED FOR CHEST PAIN, MAY REPEAT EVERY FIVE MINUTES FOR A TOTAL OF 3 DOSES OR CALL 911 IF NO RELIEF Atorvastatin (Atorvastatin Calcium) 40 Mg Tab 40 Mg PO HS Effient (Prasugrel) 10 Mg Tab 10 Mg PO DAILY 30 Days Aspirin Low Dose (Aspirin) 81 Mg Chew 81 Mg CHEW DAILY Metoprolol Tartrate 25 Mg Tab 25 Mg PO DAILY Amlodipine (Amlodipine Besylate) 2.5 Mg Tab 2.5 Mg PO DAILY Allergies: Coded Allergies: codeine (Verified Allergy, Unknown, 12/25/17) Family History COPD Heart disease Social History Denies tobacco or illicit drug use. Rare alcohol use. Physical Exam Vital Signs Vital Signs Date Time Temp Pulse Resp B/P (MAP) Pulse Ox O2 Delivery O2 Flow Rate FiO2 12/25/17 08:00 101.4 90 24 180/79 (112) 95 12/25/17 07:50 18 12/25/17 04:16 97.7 72 18 170/78 (108) 95 12/25/17 04:00 100.0 73 24 177/85 (115) 94 12/25/17 03:11 70 22 178/88 (118) 95 Room Air 12/25/17 01:45 61 24 183/98 (126) 96 Room Air 12/25/17 01:34 95 Room Air 12/25/17 01:09 16 12/25/17 00:55 98.4 64 20 185/91 (122) 97 Physical Exam GENERAL: Obese male. Appears uncomfortable. HEENT: Normocephalic, atraumatic. Pupils equal, round and reactive. Extraocular movements intact. No scleral icterus. No injection or drainage. Oropharynx is clear. Mucous membranes are moist. CARDIOVASCULAR: Regular rate and rhythm without murmurs, gallops, or rubs. RESPIRATORY: Clear to auscultation. No wheezes, rales, or rhonchi. Breathing is non-labored. GASTROINTESTINAL: Abdomen tender to palpation in RUQ. Voluntary guarding. Positive bowel sounds. EXTREMITIES: No lower extremity edema. No calf tenderness. PSYCH: Alert and oriented x 3. Laboratory Laboratory Tests Test 12/25/17 01:27 White Blood Count 14.6 Red Blood Count 5.11 Hemoglobin 16.5 Hematocrit 46.6 Mean Corpuscular Volume 91.1 Mean Corpuscular Hemoglobin 32.3 Mean Corpuscular Hemoglobin Concent 35.4 Red Cell Distribution Width 12.6 Platelet Count 253 Mean Platelet Volume 7.7 Neutrophils (%) (Auto) 71.9 Lymphocytes (%) (Auto) 16.3 Monocytes (%) (Auto) 10.2 Eosinophils (%) (Auto) 1.0 Basophils (%) (Auto) 0.6 Neutrophils # (Auto) 10.5 Lymphocytes # (Auto) 2.4 Monocytes # (Auto) 1.5 Eosinophils # (Auto) 0.1 Basophils # (Auto) 0.1 CBC Comment DIFF FINAL Differential Comment Urine Color YELLOW Urine Turbidity CLEAR Urine pH 6.0 Urine Specific [place] 1.022 Urine Protein NEG Urine Glucose (UA) 100 Urine Ketones NEG Urine Occult Blood TRACE Urine Nitrite NEG Urine Bilirubin NEG Urine Leukocyte Esterase NEG Urine RBC 0-3 Urine Squamous Epithelial Cells 0-5 Urine Mucus FEW Microscopic Urinalysis Comment CULT NOT INDICATED Blood Urea Nitrogen 17 Creatinine 1.00 Random Glucose 169 Total Protein 8.5 Albumin 4.3 Calcium Level 9.2 Alkaline Phosphatase 107 Aspartate Amino Transf (AST/SGOT) 22 Alanine Aminotransferase (ALT/SGPT) 33 Total Bilirubin 0.8 Sodium Level 138 Potassium Level 3.7 Chloride Level 104 Carbon Dioxide Level 28.8 Anion Gap 5 Estimat Glomerular Filtration Rate 75 Lipase 209 Result Diagram: 12/25/1712612/25/17126 Imaging Last Impressions Abdomen/Pelvis CT 12/25/178 Signed Impressions: Service Date/Time: Monday, December 25, 2017 02:52 - CONCLUSION: 1. The gallbladder is abnormal. It contains stones and demonstrates wall thickening/edema. This findings can be seen with acute cholecystitis. 2. No other acute finding is identified. Jersey Jimenez MD Caprini VTE Risk Assessment Caprini VTE Risk Assessment: Mod/High Risk (score >= 2) Caprini Risk Assessment Model Point Value = 1 Point Value = 2 Point Value = 3 Point Value = 5 Age 41-60 Minor surgery BMI > 25 kg/m2 Swollen legs Varicose veins or History of unexplained or recurrent spontaneous Oral contraceptives or hormone replacement Sepsis (< 1 month) Serious lung disease, including pneumonia (< 1 month) Abnormal pulmonary function Acute myocardial infarction Congestive heart failure (< 1 month) History of inflammatory bowel disease Medical patient at bed rest Age 61-74 Arthroscopic surgery Major open surgery (> 45 min) Laparoscopic surgery (> 45 min) Malignancy Confined to bed (> 72 hours) Immobilizing plaster cast Central venous access Age >= 75 History of VTE Family history of VTE Factor V Leiden Prothrombin [id number] Lupus anticoagulant Anticardiolipin antibodies Elevated serum homocysteine Heparin-induced thrombocytopenia Other congenital or acquired thrombophilia Stroke (< 1 month) Elective arthroplasty Hip, pelvis, or leg fracture Acute spinal cord injury (< 1 month) Prophylaxis Regimen Total Risk Factor Score Risk Level Prophylaxis Regimen 0-1 Low Early ambulation 2 Moderate Order ONE of the following: *Sequential Compression Device (SCD) *Heparin 5000 units SQ BID 3-4 Higher Order ONE of the following medications: *Heparin 5000 units SQ TID *Enoxaparin/Lovenox 40 mg SQ daily (WT < 150 kg, CrCl > 30 mL/min) *Enoxaparin/Lovenox 30 mg SQ daily (WT < 150 kg, CrCl > 10-29 mL/min) *Enoxaparin/Lovenox 30 mg SQ BID (WT < 150 kg, CrCl > 30 mL/min) AND/OR *Sequential Compression Device (SCD) 5 or more Highest Order ONE of the following medications: *Heparin 5000 units SQ TID (Preferred with Epidurals) *Enoxaparin/Lovenox 40 mg SQ daily (WT < 150 kg, CrCl > 30 mL/min) *Enoxaparin/Lovenox 30 mg SQ daily (WT < 150 kg, CrCl > 10-29 mL/min) *Enoxaparin/Lovenox 30 mg SQ BID (WT < 150 kg, CrCl > 30 mL/min) AND *Sequential Compression Device (SCD) Assessment and Plan Assessment and Plan 1. Acute cholecystitis: Patient has significant abdominal pain, nausea, vomiting. Keep nothing by mouth. Continue IV antibiotics, IV fluids. General surgery consultation is pending. Continue pain control. 2. Hypertension: Vasotec as needed. Continue metoprolol, amlodipine. 3. Coronary artery disease: Patient had cardiac catheterization with stent placement 1 year ago. His check inspector is Dr. Elise. He is on Effient, which will need to be discontinued in anticipation of surgery. We'll request cardiology recommendations regarding antiplatelet/anticoagulation. 4. Hyperlipidemia: Statin on hold. 5. DVT prophylaxis: OREN Oneil. Gage Rodriguez MD Dec 25, 2017 10:41
[2017-12-25 11:15] LABS: AUTOMATED NEUTROPHIL # 15.1 TH/MM3 (1.8-7.7); BASOPHIL # 0.2 TH/MM3 (0-0.2); BASOPHIL % 1.1 % (0.0-2.0); EOSINOPHIL % 0.1 % (0.0-4.0); HEMATOCRIT 45.5 % (39.0-51.0); HEMOGLOBIN 15.5 GM/DL (13.0-17.0); LYMPH % 13.4 % (9.0-44.0); LYMPHOCYTE # 2.7 TH/MM3 (1.0-4.8); MEAN CELL VOLUME 91.3 FL (80.0-100.0); MEAN CORPUSCULAR HEMOGLOBIN 31.1 PG (27.0-34.0); MEAN CORPUSCULAR HGB CONC 34.1 % (32.0-36.0); MEAN PLATELET VOLUME 7.6 FL (7.0-11.0); MONO % 10.8 % (0.0-8.0); MONOCYTE # 2.2 TH/MM3 (0-0.9); NEUT % 74.6 % (16.0-70.0); PLATELET COUNT 236 TH/MM3 (150-450); RED BLOOD COUNT 4.99 MIL/MM3 (4.50-5.90); RED CELL DISTRIBUTION WIDTH 12.4 % (11.6-17.2); WHITE BLOOD COUNT 20.2 TH/MM3 (4.0-11.0)
[2017-12-25 11:30] LABS: CHLORIDE 104 MEQ/L (98-107); SODIUM (NA) 140 MEQ/L (136-145)
[2017-12-25 11:33] LABS: ALBUMIN 3.9 GM/DL (3.4-5.0); BICARBONATE 30.5 MEQ/L (21.0-32.0); CALCIUM 8.4 MG/DL (8.5-10.1); GLUCOSE,RANDOM 132 MG/DL (74-106)
[2017-12-25 11:34] LABS: BLOOD UREA NITROGEN 13 MG/DL (7-18)
[2017-12-25 11:36] LABS: ALT (GPT) 29 U/L (12-78)
[2017-12-25 11:37] LABS: AST (GOT) 20 U/L (15-37); GLOMERULAR FILTRATION RATE 61 ML/MIN (>89)
[2017-12-25 11:38] LABS: TOTAL BILIRUBIN ADULT 1.3 MG/DL (0.2-1.0)
[2017-12-25 11:39] LABS: ALKALINE PHOSPHATASE 93 U/L (45-117)
[2017-12-25] MEDS: ACETAMINOPHEN 325 MG TAB PO PRN ×2 (12:08→21:50)
[2017-12-25 12:22] LABS: BANDS 9 % (0-6); LYMPHOCYTES 1 % (9-44); MONOCYTES 10 % (0-8); POLYS (SEG NEUTROPHILS) 80 % (16-70)
--- NOTE | 2017-12-25 17:46 | PD.CONS ---
HPI Service General Surgery Consult Requested By Dr. Tomas Reason for Consult acute cholecystitis Primary Care Physician Sandra Moreno MD History of Present Illness 62yo obese male presented to [facility] ED after 24 h severe RUQ abdominal pain associated with nausea and vomiting. He had one similar episode 4-5 years ago. He was noted to have leukocytosis of 14,[address] a/p was consistent with acute cholecystitis. LFTs on admission are normal. In January 2017 he underwent coronary artery stent placement and is on Effient. This has been stopped after admission. Review of Systems Constitutional: DENIES: Fever, Chills Eyes: DENIES: Eye inflammation, Eye pain Respiratory: DENIES: Cough Cardiovascular: DENIES: Chest pain, Palpitations Gastrointestinal: COMPLAINS OF: Abdominal pain, Nausea, Vomiting Integumentary: DENIES: Pruritus, Rash Hematologic/lymphatic: COMPLAINS OF: Bruising, DENIES: Lymphadenopathy ( reports easy bleeding) Neurologic: DENIES: Paresthesias, Seizures Past Family Social History Past Medical History Obesity Coronary artery disease s/p stent placement 02/03 on Effient Hyperlipidemia Hypertension History of shingles Past Surgical History Appendectomy Reported Medications Reported Meds & Active Scripts Active Nitroglycerin SL (Nitroglycerin) 0.4 Mg Subl 0.4 Mg SL DIRECTED PRN ONE TABLET UNDER THE TONGUE NEEDED FOR CHEST PAIN, MAY REPEAT EVERY FIVE MINUTES FOR A TOTAL OF 3 DOSES OR CALL 911 IF NO RELIEF Atorvastatin (Atorvastatin Calcium) 40 Mg Tab 40 Mg PO HS Effient (Prasugrel) 10 Mg Tab 10 Mg PO DAILY 30 Days Reported Aspirin Low Dose (Aspirin) 81 Mg Chew 81 Mg CHEW DAILY Metoprolol Tartrate 25 Mg Tab 25 Mg PO DAILY Amlodipine (Amlodipine Besylate) 2.5 Mg Tab 2.5 Mg PO DAILY Allergies: Coded Allergies: codeine (Verified Allergy, Unknown, 12/25/17) Active Ordered Medications Current Medications Medications (Trade) Dose Ordered Sig/Maeve Route Start Time Stop Time Status Last Admin Piperacillin Sod/ Tazobactam Sod 100 ml @ 200 mls/hr Q6H IV 12/25/17 04:00 12/25/17 16:27 (NS Flush) 2 ml UNSCH PRN IV FLUSH 12/25/17 03:45 (NS Flush) 2 ml BID IV FLUSH 12/25/17 09:00 (Zofran Inj) 4 mg Q6H PRN IVP 12/25/17 03:45 (Tylenol) 650 mg Q6H PRN PO 12/25/17 03:45 12/25/17 12:08 (Dilaudid Pf Inj) 0.5 mg Q3H PRN IV PUSH 12/25/17 03:45 (Dilaudid Pf Inj) 1 mg Q3H PRN IV PUSH 12/25/17 03:45 12/25/17 16:28 (Kaya-Colace) 1 tab BID PO 12/25/17 09:00 12/25/17 09:08 (Milk Of Magnesia Liq) 30 ml Q12H PRN PO 12/25/17 03:45 (Senokot) 17.2 mg Q12H PRN PO 12/25/17 03:45 (Dulcolax Supp) 10 mg DAILY PRN RECTAL 12/25/17 03:45 (Lactulose Liq) 30 ml DAILY PRN PO 12/25/17 03:45 (Norvasc) 2.5 mg DAILY PO 12/25/17 09:00 12/25/17 09:08 (Lopressor) 25 mg DAILY PO 12/25/17 09:00 12/25/17 09:07 Potassium Chloride/Sodium Chloride 1,000 ml @ 100 mls/hr Q10H IV 12/25/17 10:00 12/25/17 10:06 (Vasotec Inj) 1.25 mg Q6H PRN IV PUSH 12/25/17 10:30 Family History Noncontributory Social History Rare ETOH. No tobacco or drug use. His and daughter are at bedside. Physical Exam Vital Signs Vital Signs Date Time Temp Pulse Resp B/P (MAP) Pulse Ox O2 Delivery O2 Flow Rate FiO2 12/25/17 16:00 99.7 90 18 161/85 (110) 96 12/25/17 13:46 18 12/25/17 13:08 18 12/25/17 13:00 97.4 100 12/25/17 12:00 99.6 91 18 163/92 (115) 94 12/25/17 08:00 93 Nasal Cannula 2.00 12/25/17 08:00 101.4 90 24 180/79 (112) 95 12/25/17 04:16 97.7 72 18 170/78 (108) 95 12/25/17 04:00 100.0 73 24 177/85 (115) 94 12/25/17 03:11 70 22 178/88 (118) 95 Room Air 12/25/17 01:45 61 24 183/98 (126) 96 Room Air 12/25/17 01:34 95 Room Air 12/25/17 01:09 16 12/25/17 00:55 98.4 64 20 185/91 (122) 97 Physical Exam GENERAL: Awake and alert. No acute distress but appears uncomfortable. Cooperative. Obese. HEAD: Normocephalic. Atraumatic. EYES: Pupils equal round and reactive to light bilaterally. No scleral icterus. CHEST: Lungs clear to auscultation bilaterally with no wheezing or rhonchi. No respiratory distress. CARDIOVASCULAR: Regular rate and rhythm. ABDOMEN: Obese, round, mild distention. Focal ttp right upper quadrant.No rebound or guarding. EXTREMITIES: No cyanosis or edema. SKIN: Warm, dry, nonjaundiced. Laboratory Laboratory Tests Test 12/25/17 01:27 12/25/17 11:07 White Blood Count 14.6 20.2 Red Blood Count 5.11 4.99 Hemoglobin 16.5 15.5 Hematocrit 46.6 45.5 Mean Corpuscular Volume 91.1 91.3 Mean Corpuscular Hemoglobin 32.3 31.1 Mean Corpuscular Hemoglobin Concent 35.4 34.1 Red Cell Distribution Width 12.6 12.4 Platelet Count 253 236 Mean Platelet Volume 7.7 7.6 Neutrophils (%) (Auto) 71.9 74.6 Lymphocytes (%) (Auto) 16.3 13.4 Monocytes (%) (Auto) 10.2 10.8 Eosinophils (%) (Auto) 1.0 0.1 Basophils (%) (Auto) 0.6 1.1 Neutrophils # (Auto) 10.5 15.1 Lymphocytes # (Auto) 2.4 2.7 Monocytes # (Auto) 1.5 2.2 Eosinophils # (Auto) 0.1 0.0 Basophils # (Auto) 0.1 0.2 CBC Comment DIFF FINAL AUTO DIFF Differential Comment FINAL DIFF MANUAL Urine Color YELLOW Urine Turbidity CLEAR Urine pH 6.0 Urine Specific [place] 1.022 Urine Protein NEG Urine Glucose (UA) 100 Urine Ketones NEG Urine Occult Blood TRACE Urine Nitrite NEG Urine Bilirubin NEG Urine Leukocyte Esterase NEG Urine RBC 0-3 Urine Squamous Epithelial Cells 0-5 Urine Mucus FEW Microscopic Urinalysis Comment CULT NOT INDICATED Blood Urea Nitrogen 17 13 Creatinine 1.00 1.20 Random Glucose 169 132 Total Protein 8.5 8.0 Albumin 4.3 3.9 Calcium Level 9.2 8.4 Alkaline Phosphatase 107 93 Aspartate Amino Transf (AST/SGOT) 22 20 Alanine Aminotransferase (ALT/SGPT) 33 29 Total Bilirubin 0.8 1.3 Sodium Level 138 140 Potassium Level 3.7 4.0 Chloride Level 104 104 Carbon Dioxide Level 28.8 30.5 Anion Gap 5 6 Estimat Glomerular Filtration Rate 75 61 Lipase 209 Differential Total Cells Counted 100 Neutrophils % (Manual) 80 Band Neutrophils % 9 Lymphocytes % 1 Monocytes % 10 Neutrophils # (Manual) 18.0 Platelet Estimate NORMAL Platelet Morphology Comment NORMAL Red Cell Morphology Comment NORMAL Lactic Acid Level 2.1 Date/Time Source Procedure Growth Status 12/25/17 14:22 Blood Peripheral Aerobic Blood Culture Pending Received 12/25/17 14:22 Blood Peripheral Anaerobic Blood Culture Pending Received Result Diagram: 12/25/17 1107 12/25/17 1107 Imaging Last Impressions Abdomen/Pelvis CT 12/25/17 0148 Signed Impressions: Service Date/Time: Monday, December 25, 2017 02:52 - CONCLUSION: 1. The gallbladder is abnormal. It contains stones and demonstrates wall thickening/edema. This findings can be seen with acute cholecystitis. 2. No other acute finding is identified. Jersey Jimenez MD Assessment and Plan Assessment and Plan 62 yo obese male with acute cholecystitis, on Effient due to stent placement January 2017. Acute cholecystitis complicated by obesity and antiplatelet. Recommend treatment with IV antibiotics. Not operative candidate right now due to antiplatelet. If worsens would discuss possible rafy tube with radiology. F/ u labs in am. Ok for ice chips. Discussed in detail with patient and his . If he can get through this nonoperatively will recommend cholecystectomy in 6 weeks. Bryant Medina MD Dec 25, 2017 17:46
[2017-12-26] VITALS (10 sets, daily range): BP systolic 120–178; BP diastolic 58–91; PULSE 84–111; RESP 18–28; TEMP 97.7–100; O2SAT 91–96
[2017-12-26] MEDS: PIPERACIL-TAZO 4.5 GM PREMIX 100 ML IV SCH ×4 (03:47→21:20)
[2017-12-26] MEDS: HYDROmorphone HCL PF 2 MG/ML VIAL IV PUSH PRN ×5 (03:52→21:21)
[2017-12-26 06:43] LABS: HEMATOCRIT 46.1 % (39.0-51.0); HEMOGLOBIN 15.4 GM/DL (13.0-17.0); MEAN CELL VOLUME 93.2 FL (80.0-100.0); MEAN CORPUSCULAR HEMOGLOBIN 31.2 PG (27.0-34.0); MEAN CORPUSCULAR HGB CONC 33.5 % (32.0-36.0); MEAN PLATELET VOLUME 7.8 FL (7.0-11.0); PLATELET COUNT 227 TH/MM3 (150-450); RED BLOOD COUNT 4.94 MIL/MM3 (4.50-5.90); RED CELL DISTRIBUTION WIDTH 12.8 % (11.6-17.2); WHITE BLOOD COUNT 27.1 TH/MM3 (4.0-11.0)
[2017-12-26 06:49] LABS: CHLORIDE 102 MEQ/L (98-107); SODIUM (NA) 137 MEQ/L (136-145)
[2017-12-26 06:53] LABS: CALCIUM 8.2 MG/DL (8.5-10.1)
[2017-12-26 07:10] LABS: ALBUMIN 3.2 GM/DL (3.4-5.0); ALKALINE PHOSPHATASE 80 U/L (45-117); ALT (GPT) 29 U/L (12-78); AST (GOT) 31 U/L (15-37); BICARBONATE 29.8 MEQ/L (21.0-32.0); BLOOD UREA NITROGEN 16 MG/DL (7-18); GLOMERULAR FILTRATION RATE 61 ML/MIN (>89); GLUCOSE,RANDOM 133 MG/DL (74-106); TOTAL BILIRUBIN ADULT 2.3 MG/DL (0.2-1.0); TOTAL PROTEIN 7.2 GM/DL (6.4-8.2)
[2017-12-26 07:36] LABS: BANDS 17 % (0-6); LYMPHOCYTES 4 % (9-44); MONOCYTES 8 % (0-8); NEUTROPHIL # MANUAL DIFF 23.8 TH/MM3 (1.8-7.7); POLYS (SEG NEUTROPHILS) 71 % (16-70)
[2017-12-26] MEDS: amLODIPine BESYLATE 5 MG TAB PO SCH (08:31)
[2017-12-26] MEDS: DOCUSATE SODIUM 50 MG/SENNA 8.6 MG TAB PO SCH ×2 (08:31→21:27)
[2017-12-26] MEDS: METOPROLOL TARTRATE 25 MG TAB PO SCH (08:31)
[2017-12-26] MEDS: SODIUM CHLORIDE 0.9% FLUSH 10 ML FLUSH IV FLUSH SCH ×2 (08:32→21:00)
[2017-12-26] MEDS ORDERED: SODIUM CHLOR 0.9% 1000 ML INJ 1,000 ML IV SCH (08:45)
--- NOTE | 2017-12-26 09:10 | HHI.PR ---
Subjective Subjective Notes Feels about the same. Had another fever overnight. Objective Vitals/I&O Vital Signs Date Time Temp Pulse Resp B/P (MAP) Pulse Ox O2 Delivery O2 Flow Rate FiO2 12/26/17 08:23 18 12/26/17 08:00 98.1 99 142/77 (98) 93 12/25/17 08:00 Nasal Cannula 2.00 Labs Laboratory Tests Test 12/25/17 11:07 12/26/17 06:20 White Blood Count 20.2 27.1 Red Blood Count 4.99 4.94 Hemoglobin 15.5 15.4 Hematocrit 45.5 46.1 Mean Corpuscular Volume 91.3 93.2 Mean Corpuscular Hemoglobin 31.1 31.2 Mean Corpuscular Hemoglobin Concent 34.1 33.5 Red Cell Distribution Width 12.4 12.8 Platelet Count 236 227 Mean Platelet Volume 7.6 7.8 Neutrophils (%) (Auto) 74.6 Lymphocytes (%) (Auto) 13.4 Monocytes (%) (Auto) 10.8 Eosinophils (%) (Auto) 0.1 Basophils (%) (Auto) 1.1 Neutrophils # (Auto) 15.1 Lymphocytes # (Auto) 2.7 Monocytes # (Auto) 2.2 Eosinophils # (Auto) 0.0 Basophils # (Auto) 0.2 CBC Comment AUTO DIFF AUTO DIFF Differential Total Cells Counted 100 100 Neutrophils % (Manual) 80 71 Band Neutrophils % 9 17 Lymphocytes % 1 4 Monocytes % 10 8 Neutrophils # (Manual) 18.0 23.8 Differential Comment FINAL DIFF MANUAL FINAL DIFF MANUAL Platelet Estimate NORMAL NORMAL Platelet Morphology Comment NORMAL NORMAL Red Cell Morphology Comment NORMAL NORMAL Blood Urea Nitrogen 13 16 Creatinine 1.20 1.20 Random Glucose 132 133 Total Protein 8.0 7.2 Albumin 3.9 3.2 Calcium Level 8.4 8.2 Alkaline Phosphatase 93 80 Aspartate Amino Transf (AST/SGOT) 20 31 Alanine Aminotransferase (ALT/SGPT) 29 29 Total Bilirubin 1.3 2.3 Sodium Level 140 137 Potassium Level 4.0 4.3 Chloride Level 104 102 Carbon Dioxide Level 30.5 29.8 Anion Gap 6 5 Estimat Glomerular Filtration Rate 61 61 Lactic Acid Level 2.1 Date/Time Source Procedure Growth Status 12/25/17 14:22 Blood Peripheral Aerobic Blood Culture Pending Received 12/25/17 14:22 Blood Peripheral Anaerobic Blood Culture Pending Received Narrative Exam Obese, not in distress Abd: mild distention, focal RUQ ttp A/P Assessment and Plan Morbid obesity, on platelet inhibitor, acute cholecystitis. WBC and bands continue to increase. I recommend rafy tube. I discussed this in person with Dr. Bedoya who agrees to perform the procedure. There is increased risk due to Effient, however, I feel this is the most appropriate option under the circumstances as an operation would be high risk. Transfer to [facility] now for procedure today. D/w Dr. Barrett. Bryant Medina MD Dec 26, 2017 09:10
[2017-12-26] MEDS: SODIUM CHLOR 0.9% 1000 ML INJ 1,000 ML IV SCH (09:14)
[2017-12-26 11:04] LABS: INTERNATIONAL NORMALIZED RATIO 1.5 RATIO; PROTHROMBIN TIME - PATIENT 15.2 SEC (9.8-11.6)
--- NOTE | 2017-12-26 12:32 | HHI.PR ---
Subjective Remarks No acute complaints and the patient today. He actually feels better. However, his white blood cell count is continuing to increase despite antibiotics. Surgery has recommended drainage of the gallbladder with retention of the drain. Plan for this to be performed by interventional radiology on 10/25/18. Surgical plans would be deferred for at least 2 weeks at this point. Objective Vital Signs Date Time Temp Pulse Resp B/P (MAP) Pulse Ox O2 Delivery O2 Flow Rate FiO2 12/26/17 11:00 18 12/26/17 08:00 98.1 99 18 142/77 (98) 93 12/26/17 00:00 99.3 90 20 154/73 (100) 96 12/25/17 20:00 101.2 94 21 148/67 (94) 96 12/25/17 16:00 99.7 90 18 161/85 (110) 96 12/25/17 13:08 18 12/25/17 13:00 97.4 100 I/O 12/25/17 12/25/17 12/25/17 12/26/17 12/26/17 12/26/17 07:00 15:00 23:00 07:00 15:00 23:00 Intake Total 1235 ml 450 ml 1175 ml 240 ml 1100 ml Output Total 500 ml 800 ml Balance 735 ml 450 ml 375 ml 240 ml 1100 ml Intake Oral 100 ml 240 ml 0 ml IV Total 1235 ml 450 ml 1075 ml 1100 ml Output Urine Total 500 ml 800 ml # Voids 2 2 3 1 Result Diagram: 12/26/1720 12/26/17 0620 Objective Remarks GENERAL: NAD, A&Ox3 HEAD: Normocephalic. NECK: Supple, trachea midline. No lymphadenopathy. EYES: No scleral icterus. No injection or drainage. CARDIOVASCULAR: Regular rate and rhythm without murmurs, gallops, or rubs. RESPIRATORY: Breath sounds equal bilaterally. No accessory muscle use. GASTROINTESTINAL: Abdomen soft, mild abdominal distention and tenderness. MUSCULOSKELETAL: No cyanosis, or edema. SKIN: Warm and dry. NEURO: No focal neurological deficitis. A/P Problem List: (1) Acute cholecystitis ICD Code: K81.0 - Acute cholecystitis Status: Acute (2) Sepsis ICD Code: A41.9 - Sepsis, unspecified organism Assessment and Plan 62-year-old male admitted secondary to acute cholecystitis with sepsis Acute cholecystitis Plan for drain placement [facility]red [facility] for IR procedure. No acute complaints for cholecystectomy Continue IV hydration Continue pain treatments as needed Hypertension Continue metoprolol Continue amlodipine Continue Vasotec as needed Follow blood pressures Coronary artery disease Patient is on Effient at baseline Effient on hold for procedure Cardiology has been consulted Hyperlipidemia Resume statin when by mouth intake resumed DVT prophylaxis German Vogel MD Dec 26, 2017 12:32
[2017-12-26] MEDS ORDERED: fentaNYL CITRATE 250 MCG/5 ML AMP ONE (12:53)
[2017-12-26] MEDS ORDERED: MIDAZOLAM HCL 2 MG/2 ML VIAL ONE (12:53)
--- NOTE | 2017-12-26 14:55 | PD.RAD ---
Post Procedure Progress Note Pre Procedure Diagnosis: (1) Acute cholecystitis Post Procedure Diagnosis: (1) Acute cholecystitis Procedure Date: Dec 26, 2017 Supervising Radiologist: Jersey Bedoya Proceduralist/Assist: RT Leticia(R) Anesthesia: Local, Conscious Sedation Plan of Activity Patient to Unit: ROPU Patient Condition: Fair See PACS Report for procedural detail/treatment Drainage Procedure Procedure 1 Imaging Guidance: Fluoroscopy, Ultrasound Side: Right Procedure Type: Cholecystostomy Procedure: Placement [place]: 6 Drainage: [place] drainage Fluid Removal (CCs): 25 Fluid Description: BilJersey Carl MD Dec 26, 2017 14:55
--- NOTE | 2017-12-26 14:59 | RADRPT ---
EXAM DATE/TIME: 12/26/2017 14:06 [facility] COMPARISON: No previous studies available for comparison. INDICATIONS : Patient presents with acute cholecystitis in need of a drainage tube. MEDICAL HISTORY : Coronary Artery Disease Hyperlipidemia Hypertension History of Shingles SURGICAL HISTORY : Appendectomy Cardiac catheterization with stent placement Tonsillectomy/Adenoidectomy ENCOUNTER: Initial ACUITY: 1 day PAIN SCORE: 8/10 LOCATION: Right upper quadrant FLUORO TIME: 2.2 minutes IMAGE SERIES: 2 SEDATION TIME: 30 minutes CONTRAST: 5 cc Omnipaque (iohexol) 350 MEDICATION(S): 1.) 1 mg midazolam (Versed) IV 2.) 150 mcg fentanyl (Sublimaze) IV DEVICE(S): 1.) 6 Citizen [place] 6F [place] Drain Locking PROCEDURE : 1. Ultrasound guided puncture of the gallbladder. 2. Percutaneous cholangiogram. 3. Percutaneous cholecystostomy tube placement. 4. Conscious sedation with continuous EKG and oximetry monitoring. The risks, benefits and alternatives to the procedure were explained and verbal and written consent w as obtained. The site was prepped in sterile fashion. Full sterile technique was used, including ca p, mask, sterile gloves and gown and a large sterile sheet. Hand hygiene and 2% chlorhexidine and/or betadine/alcohol prep was utilized per protocol for cutaneous antisepsis. Sterile gel and sterile p robe cover were utilized for ultrasound guidance. The skin and subcutaneous tissues were infiltrated with local anesthetic solution. With ultrasound and fluoroscopic guidance the gallbladder was punctured with a micropuncture set and a 4 [place] dilator was placed. Injection of positive contrast demonstrates position within the gallb ladder. A 0.035 guidewire was placed within the gallbladder lumen and dilatation was performed to ac cept the prescribed catheter. Approximately 25 mL's of slightly blood tinged bile was aspirated from the gallbladder. The catheter was secured with silk suture and a Percu-Stay apparatus and connected to gravity drainage. Conscious sedation was performed with the prescribed dosages and duration as above in the presence of an independent trained radiology nurse to assist in the monitoring of the patient. EKG and oximetry remained stable throughout the procedure. The patient tolerated the procedure well and there were n o complications. The patient was sent to post anesthesia recovery in stable condition. CONCLUSION: Uncomplicated percutaneous cholecystostomy as above. Jersey Bedoya MD on December 26, 2017 at 14:55 Board Certified Radiologist. This report was verified electronically.
[2017-12-27 01:28] VITALS: BP 135/73; PULSE 89; RESP 20; TEMP 98.7; O2SAT 96
[2017-12-27] MEDS: HYDROmorphone HCL PF 2 MG/ML VIAL IV PUSH PRN ×5 (01:41→21:00)
[2017-12-27] MEDS: SODIUM CHLOR 0.9% 1000 ML INJ 1,000 ML IV SCH ×3 (01:42→13:30)
[2017-12-27 04:58] VITALS: BP 146/71; PULSE 95; RESP 17; TEMP 100.1; O2SAT 94
[2017-12-27] MEDS: PIPERACIL-TAZO 4.5 GM PREMIX 100 ML IV SCH ×4 (06:14→21:30)
[2017-12-27] MEDS: ACETAMINOPHEN 325 MG TAB PO PRN (06:14)
[2017-12-27 08:36] LABS: AUTOMATED NEUTROPHIL # 19.5 TH/MM3 (1.8-7.7); BASOPHIL % 0.1 % (0.0-2.0); EOSINOPHIL % 0.2 % (0.0-4.0); LYMPHOCYTE # 0.9 TH/MM3 (1.0-4.8); MEAN CELL VOLUME 92.7 FL (80.0-100.0); MEAN CORPUSCULAR HEMOGLOBIN 32.4 PG (27.0-34.0); MEAN PLATELET VOLUME 7.8 FL (7.0-11.0); MONO % 8.8 % (0.0-8.0); NEUT % 86.9 % (16.0-70.0); PLATELET COUNT 206 TH/MM3 (150-450); RED BLOOD COUNT 4.64 MIL/MM3 (4.50-5.90); RED CELL DISTRIBUTION WIDTH 13.4 % (11.6-17.2); WHITE BLOOD COUNT 22.5 TH/MM3 (4.0-11.0)
--- NOTE | 2017-12-27 08:36 | HHI.PR ---
Subjective Subjective Notes Successful arfy tube placement yesterday. He feels about the same. C/o some shortness of breath. Objective Vitals/I&O Vital Signs Date Time Temp Pulse Resp B/P (MAP) Pulse Ox O2 Delivery O2 Flow Rate FiO2 12/27/17 04:58 100.1 95 17 146/71 (96) 94 12/25/17 08:00 Nasal Cannula 2.00 Labs Laboratory Tests Test 12/26/17 10:30 12/27/17 06:50 Prothrombin Time 15.2 Prothromb Time International Ratio 1.5 Activated Partial Thromboplast Time 31.0 Date/Time Source Procedure Growth Status 12/25/17 14:22 Blood Peripheral Aerobic Blood Culture - Preliminary NO GROWTH IN 1 DAY Resulted 12/25/17 14:22 Blood Peripheral Anaerobic Blood Culture - Preliminary NO GROWTH IN 1 DAY Resulted Narrative Exam Obese, not in distress Abd: moderate distention, focal RUQ ttp. Rafy tube drainage 300cc since placement, bilious/slightly bloody A/P Assessment and Plan Morbid obesity, on platelet inhibitor, acute cholecystitis. S/p rafy tube yesterday. Appreciate IR. Stable this am. Distended with some shortness of breath from being supine and abdominal pain and distention. Recommend OOB frequently and incentive spirometry. Will f/u am labs and likely start clears. Will likely need to stay for monitoring and IV antibiotics another 1-2 days depending on course. WIll be discharged with drain in place and outpatient followup. Bryant Medina MD Dec 27, 2017 08:36
[2017-12-27 08:56] LABS: ALBUMIN 2.6 GM/DL (3.4-5.0); AST (GOT) 30 U/L (15-37); BICARBONATE 29.9 MEQ/L (21.0-32.0); BLOOD UREA NITROGEN 22 MG/DL (7-18); CALCIUM 8.4 MG/DL (8.5-10.1); CHLORIDE 105 MEQ/L (98-107); CREATININE 0.99 MG/DL (0.60-1.30); GLOMERULAR FILTRATION RATE 76 ML/MIN (>89); GLUCOSE,RANDOM 114 MG/DL (74-106); SODIUM (NA) 140 MEQ/L (136-145)
[2017-12-27 08:59] LABS: ALKALINE PHOSPHATASE 100 U/L (45-117); ALT (GPT) 25 U/L (12-78); TOTAL BILIRUBIN ADULT 1.6 MG/DL (0.2-1.0); TOTAL PROTEIN 6.8 GM/DL (6.4-8.2)
[2017-12-27] MEDS: SODIUM CHLORIDE 0.9% FLUSH 10 ML FLUSH IV FLUSH SCH ×2 (09:00→20:59)
[2017-12-27 09:36] LABS: BANDS 16 % (0-6); LYMPHOCYTES 4 % (9-44); MONOCYTES 10 % (0-8); NEUTROPHIL # MANUAL DIFF 19.4 TH/MM3 (1.8-7.7); POLYS (SEG NEUTROPHILS) 70 % (16-70)
[2017-12-27] MEDS: DOCUSATE SODIUM 50 MG/SENNA 8.6 MG TAB PO SCH ×2 (10:43→20:59)
[2017-12-27] MEDS: METOPROLOL TARTRATE 25 MG TAB PO SCH (10:43)
[2017-12-27] MEDS: amLODIPine BESYLATE 5 MG TAB PO SCH (10:44)
[2017-12-27 12:00] VITALS: O2SAT 96
[2017-12-27 12:20] VITALS: BP 131/71; PULSE 87; RESP 21; TEMP 98.4; O2SAT 96
--- NOTE | 2017-12-27 14:16 | HHI.PR ---
Subjective Remarks Follow up abdominal pain. States that he is still having some discomfort in his abdomen, but feels better than he did a couple days ago. No nausea or vomiting. Objective Vitals Vital Signs Date Time Temp Pulse Resp B/P (MAP) Pulse Ox O2 Delivery O2 Flow Rate FiO2 12/27/17 12:20 98.4 87 21 131/71 (91) 96 12/27/17 04:58 100.1 95 17 146/71 (96) 94 12/27/17 02:29 20 12/27/17 01:28 98.7 89 20 135/73 (93) 96 12/26/17 20:40 98.7 97 18 120/58 (78) 95 12/26/17 17:08 99.2 98 24 154/78 (103) 95 12/26/17 15:53 98.3 100 28 139/63 (88) 93 12/26/17 15:30 100 20 140/74 (96) 92 12/26/17 15:00 100 20 142/74 (96) 92 12/26/17 14:30 97.7 103 20 155/88 (110) 93 12/26/17 14:15 100.0 111 20 153/88 (109) 93 12/26/17 14:15 100.0 109 20 178/91 (120) 93 I/O 12/26/17 12/26/17 12/26/17 12/27/17 12/27/17 12/27/17 07:00 15:00 23:00 07:00 15:00 23:00 Intake Total 240 ml 1100 ml 1000 ml Output Total 200 ml 100 ml Balance 240 ml 1100 ml -200 ml -100 ml 1000 ml Intake Oral 240 ml 0 ml IV Total 1100 ml 1000 ml Drainage Total 200 ml 100 ml # Voids 3 1 Result Diagram: 12/27/17 0650 12/27/17 0650 Imaging Last Impressions Percutaneous Cholangiogram 12/26/17 0000 Signed Impressions: Service Date/Time: Tuesday, December 26, 2017 14:06 - CONCLUSION: Uncomplicated percutaneous cholecystostomy as above. Jersey Bedoya MD Abdomen/Pelvis CT 12/25/17 0148 Signed Impressions: Service Date/Time: Monday, December 25, 2017 02:52 - CONCLUSION: 1. The gallbladder is abnormal. It contains stones and demonstrates wall thickening/edema. This findings can be seen with acute cholecystitis. 2. No other acute finding is identified. Jersey Jimenez MD Objective Remarks General: Obese male in no acute distress. Heart: Regular rate and rhythm. No murmur. Lungs: Clear to auscultation bilaterally. No wheezes, rales, or rhonchi. Breathing is nonlabored. Abdomen: Soft, nontender, nondistended. Cholecystostomy tube in place. Extremities: No lower extremity edema. Psych: Alert and oriented. Procedures 12/26/17 percutaneous cholangiogram with cholecystostomy tube placement Urinary Catheter: No Vascular Central Line Catheter: No A/P Problem List: (1) Coronary artery disease ICD Code: I25.10 - Atherosclerotic heart disease of [place] coronary artery without angina pectoris (2) Hypertension ICD Code: I10 - Essential (primary) hypertension (3) Nausea & vomiting ICD Code: R11.2 - Nausea with vomiting, unspecified (4) Acute cholecystitis ICD Code: K81.0 - Acute cholecystitis Status: Acute (5) Sepsis ICD Code: A41.9 - Sepsis, unspecified organism Assessment and Plan 1. Acute cholecystitis: Appreciate general surgery recommendations. Status post cholecystostomy tube placement. Continue IV antibiotics. 2. Hypertension: Continue amlodipine, metoprolol. Vasotec as needed. 3. Coronary artery disease: I spoke with the patient's oxygen therapy teacher, who stated that it was okay to stop Effient. 4. Hyperlipidemia: Resume statin. 5. DVT prophylaxis: OREN Oneil. Discharge Planning Pending further clinical improvement and clearance by general surgery. Will likely need 1-2 more days of IV antibiotics prior to discharge. Plan is for discharge home with cholecystostomy tube. Gage Rodriguez MD Dec 27, 2017 14:16
[2017-12-27 16:00] VITALS: BP 153/66; PULSE 91; RESP 18; TEMP 98; O2SAT 97
[2017-12-27] MEDS: ATORVASTATIN 40 MG TAB PO SCH (20:59)
[2017-12-27 21:50] VITALS: BP 170/80; PULSE 91; RESP 21; TEMP 98.7; O2SAT 94
[2017-12-28] VITALS (7 sets, daily range): BP systolic 145–163; BP diastolic 70–81; PULSE 88–103; RESP 18–28; TEMP 97.7–101.8; O2SAT 92–98
[2017-12-28] MEDS: SODIUM CHLOR 0.9% 1000 ML INJ 1,000 ML IV SCH ×2 (04:00→10:16)
[2017-12-28] MEDS: PIPERACIL-TAZO 4.5 GM PREMIX 100 ML IV SCH ×4 (04:00→21:45)
[2017-12-28] MEDS: HYDROmorphone HCL PF 2 MG/ML VIAL IV PUSH PRN ×2 (04:01→11:52)
[2017-12-28 07:57] LABS: AUTOMATED NEUTROPHIL # 14.1 TH/MM3 (1.8-7.7); BASOPHIL % 0.2 % (0.0-2.0); EOSINOPHIL # 0.2 TH/MM3 (0-0.4); EOSINOPHIL % 1.4 % (0.0-4.0); HEMATOCRIT 41.7 % (39.0-51.0); HEMOGLOBIN 14.5 GM/DL (13.0-17.0); LYMPH % 5.6 % (9.0-44.0); MEAN CELL VOLUME 92.2 FL (80.0-100.0); MEAN CORPUSCULAR HEMOGLOBIN 32.1 PG (27.0-34.0); MEAN CORPUSCULAR HGB CONC 34.8 % (32.0-36.0); MEAN PLATELET VOLUME 7.4 FL (7.0-11.0); MONO % 9.4 % (0.0-8.0); MONOCYTE # 1.6 TH/MM3 (0-0.9); NEUT % 83.4 % (16.0-70.0); PLATELET COUNT 228 TH/MM3 (150-450); RED BLOOD COUNT 4.52 MIL/MM3 (4.50-5.90); RED CELL DISTRIBUTION WIDTH 13.7 % (11.6-17.2)
[2017-12-28 08:13] LABS: ALBUMIN 2.4 GM/DL (3.4-5.0); ALT (GPT) 33 U/L (12-78); AST (GOT) 40 U/L (15-37); BICARBONATE 29.4 MEQ/L (21.0-32.0); BLOOD UREA NITROGEN 19 MG/DL (7-18); CALCIUM 8.7 MG/DL (8.5-10.1); CHLORIDE 103 MEQ/L (98-107); CREATININE 0.86 MG/DL (0.60-1.30); GLOMERULAR FILTRATION RATE 90 ML/MIN (>89); GLUCOSE,RANDOM 119 MG/DL (74-106); SODIUM (NA) 138 MEQ/L (136-145)
[2017-12-28 08:16] LABS: ALKALINE PHOSPHATASE 123 U/L (45-117); TOTAL BILIRUBIN ADULT 1.5 MG/DL (0.2-1.0); TOTAL PROTEIN 6.6 GM/DL (6.4-8.2)
[2017-12-28] MEDS: amLODIPine BESYLATE 5 MG TAB PO SCH (08:47)
[2017-12-28] MEDS: METOPROLOL TARTRATE 25 MG TAB PO SCH ×2 (08:47→21:55)
[2017-12-28] MEDS: DOCUSATE SODIUM 50 MG/SENNA 8.6 MG TAB PO SCH ×2 (08:47→21:45)
[2017-12-28] MEDS: SODIUM CHLORIDE 0.9% FLUSH 10 ML FLUSH IV FLUSH SCH ×2 (08:48→21:45)
[2017-12-28] MEDS: ACETAMINOPHEN 325 MG TAB PO PRN (11:53)
--- NOTE | 2017-12-28 13:24 | HHI.PR ---
Subjective Subjective Notes He feels much better today. Tolerated some soft diet. Worst pain is when getting back in to bed. Tm 101.8 at noon today. Objective Vitals/I&O Vital Signs Date Time Temp Pulse Resp B/P (MAP) Pulse Ox O2 Delivery O2 Flow Rate FiO2 12/28/17 12:09 101.8 103 18 145/70 (95) 92 12/28/17 08:00 Nasal Cannula 2.00 Labs Laboratory Tests Test 12/28/17 07:29 White Blood Count 17.0 Red Blood Count 4.52 Hemoglobin 14.5 Hematocrit 41.7 Mean Corpuscular Volume 92.2 Mean Corpuscular Hemoglobin 32.1 Mean Corpuscular Hemoglobin Concent 34.8 Red Cell Distribution Width 13.7 Platelet Count 228 Mean Platelet Volume 7.4 Neutrophils (%) (Auto) 83.4 Lymphocytes (%) (Auto) 5.6 Monocytes (%) (Auto) 9.4 Eosinophils (%) (Auto) 1.4 Basophils (%) (Auto) 0.2 Neutrophils # (Auto) 14.1 Lymphocytes # (Auto) 1.0 Monocytes # (Auto) 1.6 Eosinophils # (Auto) 0.2 Basophils # (Auto) 0.0 CBC Comment DIFF FINAL Differential Comment Blood Urea Nitrogen 19 Creatinine 0.86 Random Glucose 119 Total Protein 6.6 Albumin 2.4 Calcium Level 8.7 Alkaline Phosphatase 123 Aspartate Amino Transf (AST/SGOT) 40 Alanine Aminotransferase (ALT/SGPT) 33 Total Bilirubin 1.5 Sodium Level 138 Potassium Level 3.5 Chloride Level 103 Carbon Dioxide Level 29.4 Anion Gap 6 Estimat Glomerular Filtration Rate 90 Date/Time Source Procedure Growth Status 12/25/17 14:22 Blood Peripheral Aerobic Blood Culture - Preliminary NO GROWTH IN 3 DAYS Resulted 12/25/17 14:22 Blood Peripheral Anaerobic Blood Culture - Preliminary NO GROWTH IN 3 DAYS Resulted Radiology Last Impressions Abdomen/Pelvis CT 12/25/17 0148 Signed Impressions: Service Date/Time: Monday, December 25, 2017 02:52 - CONCLUSION: 1. The gallbladder is abnormal. It contains stones and demonstrates wall thickening/edema. This findings can be seen with acute cholecystitis. 2. No other acute finding is identified. Jersey Jimenez MD Narrative Exam Obese, not in distress Abd: mild distention, focal RUQ ttp. Rafy tube drainage 45cc bilious/bloody A/P Assessment and Plan Morbid obesity, on platelet inhibitor, acute cholecystitis. S/p rafy tube. Had fever again today. Soft diet. Change to PO pain meds. Overall improving clinically. LIkely ok for dc tomorrow am if he is afebrile and continues to improve. Will d/c with drain and f/u with me in 10 days. Bryant Medina MD Dec 28, 2017 13:24
[2017-12-28] MEDS ORDERED: oxyCODONE/ACETAMINOPHEN 5 MG/325 MG TAB PO PRN (13:30)
--- NOTE | 2017-12-28 15:05 | HHI.PR ---
Subjective Remarks feels well, no abdominal pain, or bloating minimal cough no urinary symptoms- but states- dark tolerated po well Objective Vitals Vital Signs Date Time Temp Pulse Resp B/P (MAP) Pulse Ox O2 Delivery O2 Flow Rate FiO2 12/28/17 12:09 101.8 103 18 145/70 (95) 92 12/28/17 08:00 98.4 102 18 163/80 (107) 96 12/28/17 08:00 96 Nasal Cannula 2.00 12/28/17 04:00 98.6 101 18 154/74 (100) 98 12/28/17 00:00 97.7 88 18 151/70 (97) 96 12/27/17 21:50 98.7 91 21 170/80 (110) 94 12/27/17 20:30 96 Nasal Cannula 3.00 12/27/17 16:00 98.0 91 18 153/66 (95) 97 I/O 12/27/17 12/27/17 12/27/17 12/28/17 12/28/17 12/28/17 07:00 15:00 23:00 07:00 15:00 23:00 Intake Total 1000 ml 850 ml 100 ml Output Total 100 ml 300 ml 45 ml Balance -100 ml 1000 ml 550 ml -45 ml 100 ml Intake Oral 850 ml IV Total 1000 ml 100 ml Output Urine Total 300 ml Drainage Total 100 ml 45 ml # Bowel Movements 0 1 Result Diagram: 12/28/17 0729 12/28/17 0729 Imaging Last Impressions Percutaneous Cholangiogram 12/26/17 0000 Signed Impressions: Service Date/Time: Tuesday, December 26, 2017 14:06 - CONCLUSION: Uncomplicated percutaneous cholecystostomy as above. Jersey Bedoya MD Abdomen/Pelvis CT 12/25/17 0148 Signed Impressions: Service Date/Time: Monday, December 25, 2017 02:52 - CONCLUSION: 1. The gallbladder is abnormal. It contains stones and demonstrates wall thickening/edema. This findings can be seen with acute cholecystitis. 2. No other acute finding is identified. Jersey Jimenez MD Objective Remarks awake and alert lungs- decreased breath sounds and vocal fremiti on the right, no rales or hweezes regular rhtyhm abdomen-soft, good bowel sounds- right UQ- - cholecystostomy tube inplace extremities no edema Procedures 12/26/17 percutaneous cholangiogram with cholecystostomy tube placement A/P Problem List: (1) Coronary artery disease ICD Code: I25.10 - Atherosclerotic heart disease of [place] coronary artery without angina pectoris (2) Hypertension ICD Code: I10 - Essential (primary) hypertension (3) Nausea & vomiting ICD Code: R11.2 - Nausea with vomiting, unspecified (4) Acute cholecystitis ICD Code: K81.0 - Acute cholecystitis Status: Acute (5) Sepsis ICD Code: A41.9 - Sepsis, unspecified organism Assessment and Plan 62 years old male Acute cholecystitis: Appreciate general surgery recommendations. Status post cholecystostomy tube placement. Continue IV antibiotics. New Fever- Leukocytosis trending down get CXR- check for infiltrates or effusion- decreased breath sounds on the right - check for infiltrate or effusion get UA Acapella spirometry hourly cotninue on IV antibotics Hypertension- : Continue amlodipine, metoprolol- increase to 25 mg po bid. Vasotec as needed. Coronary artery disease: Admitting MD- spoke with the patient's sales floor manager, who stated that it was okay to stop Effient. Hyperlipidemia: Resume statin. DVT prophylaxis: OREN Oneil.- patient up and ambulatin Discharge Planning Pending further clinical improvement and clearance by general surgery. Will likely need 1-2 more days of IV antibiotics prior to discharge. Plan is for discharge home with cholecystostomy tube. DC when afebrile Emmy Hinojosa MD Dec 28, 2017 15:05
--- NOTE | 2017-12-28 15:07 | HHI.FF ---
Face to Face Verification Diagnosis: (1) Acute cholecystitis (2) cholecystostomy tube Home Health Nursing Order: Medical education Signs/symptoms of disease process Wound care and dressing changes Nursing assessment with vital signs Ltd mobility - disease progression Deconditioned w/ increased weakness I certify that my clinical findings support that this patient is homebound because: Need for psychosocial assistance Emmy Hinojosa MD Dec 28, 2017 15:07
[2017-12-28] MEDS: oxyCODONE/ACETAMINOPHEN 5 MG/325 MG TAB PO PRN ×2 (16:05→21:45)
[2017-12-28 16:58] LABS: AMORPHOUS SEDIMENT, URINE RARE; BILIRUBIN, URINE SMALL (NEG); BLOOD, URINE TRACE (NEG); GLUCOSE,URINE NEG (NEG); KETONE, URINE NEG (NEG); MUCUS URINE FEW /lpf (OCC); NITRITE,URINE NEG (NEG); URINE COLOR DARK-YELLOW (YELLW/STRAW); URINE LEUKOCYTE ESTERASE NEG (NEG)
[2017-12-28] MEDS ORDERED: POTASSIUM CHLORIDE 10 MEQ CONTROLLED RELEASE TAB PO ONE (17:30)
--- NOTE | 2017-12-28 17:37 | RADRPT ---
EXAM DATE/TIME: 12/28/2017 17:25 [facility] COMPARISON: No previous studies available for comparison. INDICATIONS : Fever MEDICAL HISTORY : Cardiovascular disease. SURGICAL HISTORY : Appendectomy. ENCOUNTER: Initial ACUITY: 4 - 6 days PAIN SCORE: 0/10 LOCATION: Bilateral chest FINDINGS: PA and lateral views of the chest demonstrate right basilar consolidation/effusion. Left lung is cathy r. Heart size is difficult to determine due to the dense consolidation in the right base. Degenerativ e spurring of the dorsal spine. CONCLUSION: Right basilar consolidation/effusion. Jeffry Irwin MD on December 28, 2017 at 17:34 Board Certified Radiologist. This report was verified electronically.
[2017-12-28] MEDS ORDERED: FUROSEMIDE 20 MG/2 ML VIAL IV PUSH ONE (18:15)
[2017-12-28] MEDS: ATORVASTATIN 40 MG TAB PO SCH (21:46)
[2017-12-29] VITALS (8 sets, daily range): BP systolic 130–158; BP diastolic 68–80; PULSE 81–89; RESP 18–26; TEMP 97.5–98.9; O2SAT 91–94
[2017-12-29] MEDS: oxyCODONE/ACETAMINOPHEN 5 MG/325 MG TAB PO PRN ×3 (02:22→19:20)
[2017-12-29] MEDS: PIPERACIL-TAZO 4.5 GM PREMIX 100 ML IV SCH ×4 (04:22→21:04)
[2017-12-29 07:25] LABS: AUTOMATED NEUTROPHIL # 14.6 TH/MM3 (1.8-7.7); BASOPHIL % 0.2 % (0.0-2.0); EOSINOPHIL # 0.3 TH/MM3 (0-0.4); EOSINOPHIL % 1.7 % (0.0-4.0); HEMATOCRIT 39.9 % (39.0-51.0); HEMOGLOBIN 13.9 GM/DL (13.0-17.0); LYMPH % 5.4 % (9.0-44.0); MEAN CELL VOLUME 92.8 FL (80.0-100.0); MEAN CORPUSCULAR HEMOGLOBIN 32.3 PG (27.0-34.0); MEAN CORPUSCULAR HGB CONC 34.9 % (32.0-36.0); MEAN PLATELET VOLUME 7.1 FL (7.0-11.0); MONO % 12.5 % (0.0-8.0); MONOCYTE # 2.3 TH/MM3 (0-0.9); NEUT % 80.2 % (16.0-70.0); PLATELET COUNT 248 TH/MM3 (150-450); RED BLOOD COUNT 4.31 MIL/MM3 (4.50-5.90); RED CELL DISTRIBUTION WIDTH 13.5 % (11.6-17.2); WHITE BLOOD COUNT 18.2 TH/MM3 (4.0-11.0)
[2017-12-29 07:43] LABS: ALBUMIN 2.2 GM/DL (3.4-5.0); ALT (GPT) 47 U/L (12-78); AST (GOT) 53 U/L (15-37); BICARBONATE 32.1 MEQ/L (21.0-32.0); BLOOD UREA NITROGEN 18 MG/DL (7-18); CALCIUM 8.3 MG/DL (8.5-10.1); CHLORIDE 101 MEQ/L (98-107); CREATININE 1.12 MG/DL (0.60-1.30); GLOMERULAR FILTRATION RATE 66 ML/MIN (>89); GLUCOSE,RANDOM 100 MG/DL (74-106); SODIUM (NA) 140 MEQ/L (136-145)
[2017-12-29 07:46] LABS: ALKALINE PHOSPHATASE 158 U/L (45-117); TOTAL BILIRUBIN ADULT 1.7 MG/DL (0.2-1.0); TOTAL PROTEIN 6.7 GM/DL (6.4-8.2)
[2017-12-29] MEDS: amLODIPine BESYLATE 5 MG TAB PO SCH (08:09)
[2017-12-29] MEDS: DOCUSATE SODIUM 50 MG/SENNA 8.6 MG TAB PO SCH ×2 (08:09→21:03)
[2017-12-29] MEDS: SODIUM CHLORIDE 0.9% FLUSH 10 ML FLUSH IV FLUSH SCH ×2 (08:09→21:03)
[2017-12-29] MEDS: METOPROLOL TARTRATE 25 MG TAB PO SCH ×2 (08:09→21:03)
[2017-12-29 09:52] LABS: BANDS 9 % (0-6); BASOPHILS 1 % (0-2); LYMPHOCYTES 2 % (9-44); MONOCYTES 11 % (0-8); NEUTROPHIL # MANUAL DIFF 14.9 TH/MM3 (1.8-7.7); POLYS (SEG NEUTROPHILS) 73 % (16-70)
[2017-12-29 09:54] LABS: TOXIC GRANULATION 1+ (NORMAL)
[2017-12-29] MEDS ORDERED: LEVO750T3 PO (11:36)
[2017-12-29] MEDS ORDERED: METR1TAB76 PO (11:36)
[2017-12-29] MEDS ORDERED: OXYC1TAB63 PO (11:36)
--- NOTE | 2017-12-29 11:39 | HHI.PR ---
Subjective Subjective Notes He feels better and is tolerating diet. He is afebrile for about 24h. Objective Vitals/I&O Vital Signs Date Time Temp Pulse Resp B/P (MAP) Pulse Ox O2 Delivery O2 Flow Rate FiO2 12/29/17 11:13 94 Nasal Cannula 2.00 12/29/17 08:00 97.5 88 20 144/68 (93) Labs Laboratory Tests Test 12/28/17 16:00 12/29/17 07:04 Urine Color DARK-YELLOW Urine Turbidity HAZY Urine pH 6.0 Urine Specific [place] 1.031 Urine Protein 30 Urine Glucose (UA) NEG Urine Ketones NEG Urine Occult Blood TRACE Urine Nitrite NEG Urine Bilirubin SMALL Urine Urobilinogen 2.0 Urine Leukocyte Esterase NEG Urine RBC 1 Urine WBC 3 Urine Amorphous Sediment RARE Urine Mucus FEW Microscopic Urinalysis Comment CULT NOT INDICATED White Blood Count 18.2 Red Blood Count 4.31 Hemoglobin 13.9 Hematocrit 39.9 Mean Corpuscular Volume 92.8 Mean Corpuscular Hemoglobin 32.3 Mean Corpuscular Hemoglobin Concent 34.9 Red Cell Distribution Width 13.5 Platelet Count 248 Mean Platelet Volume 7.1 Neutrophils (%) (Auto) 80.2 Lymphocytes (%) (Auto) 5.4 Monocytes (%) (Auto) 12.5 Eosinophils (%) (Auto) 1.7 Basophils (%) (Auto) 0.2 Neutrophils # (Auto) 14.6 Lymphocytes # (Auto) 1.0 Monocytes # (Auto) 2.3 Eosinophils # (Auto) 0.3 Basophils # (Auto) 0.0 CBC Comment AUTO DIFF Differential Total Cells Counted 100 Neutrophils % (Manual) 73 Band Neutrophils % 9 Lymphocytes % 2 Monocytes % 11 Eosinophils % 4 Basophils % 1 Neutrophils # (Manual) 14.9 Differential Comment FINAL DIFF MANUAL Toxic Granulation 1+ Platelet Estimate NORMAL Platelet Morphology Comment NORMAL Blood Urea Nitrogen 18 Creatinine 1.12 Random Glucose 100 Total Protein 6.7 Albumin 2.2 Calcium Level 8.3 Alkaline Phosphatase 158 Aspartate Amino Transf (AST/SGOT) 53 Alanine Aminotransferase (ALT/SGPT) 47 Total Bilirubin 1.7 Sodium Level 140 Potassium Level 3.6 Chloride Level 101 Carbon Dioxide Level 32.1 Anion Gap 7 Estimat Glomerular Filtration Rate 66 B-Type Natriuretic Peptide 33 Date/Time Source Procedure Growth Status 12/25/17 14:22 Blood Peripheral Aerobic Blood Culture - Preliminary NO GROWTH IN 4 DAYS Resulted 12/25/17 14:22 Blood Peripheral Anaerobic Blood Culture - Preliminary NO GROWTH IN 4 DAYS Resulted Radiology Last Impressions Abdomen/Pelvis CT 12/25/17 0148 Signed Impressions: Service Date/Time: Monday, December 25, 2017 02:52 - CONCLUSION: 1. The gallbladder is abnormal. It contains stones and demonstrates wall thickening/edema. This findings can be seen with acute cholecystitis. 2. No other acute finding is identified. Jersey Jimenez MD Narrative Exam Obese, not in distress Abd: mild distention, focal RUQ ttp. Ria tube drainage 45cc bilious/bloody A/P Assessment and Plan Morbid obesity, on platelet inhibitor, acute cholecystitis. S/p ria tube. WBC still elevated as well as mild elevation of LFTs. He is clinically much better and I am ok with dc home with levaquin/flagyl and f/u with me in ten days with CBC/CMP prior. AdamBryant MD Dec 29, 2017 11:39
--- NOTE | 2017-12-29 11:46 | HHI.PR ---
Subjective Remarks cough - sputum whitish, yesterday yellowish feeling better Objective Vitals Vital Signs Date Time Temp Pulse Resp B/P (MAP) Pulse Ox O2 Delivery O2 Flow Rate FiO2 12/29/17 11:13 94 Nasal Cannula 2.00 12/29/17 08:00 97.5 88 20 144/68 (93) 94 12/29/17 07:07 96 Nasal Cannula 2.00 12/29/17 04:00 97.8 84 26 141/75 (97) 93 12/29/17 00:00 98.2 87 24 139/80 (99) 91 12/28/17 23:10 96 Nasal Cannula 2.00 12/28/17 20:00 98.2 97 28 148/81 (103) 92 12/28/17 16:45 94 Nasal Cannula 2.00 12/28/17 16:28 99.1 91 18 150/70 (96) 94 12/28/17 12:09 101.8 103 18 145/70 (95) 92 I/O 12/28/17 12/28/17 12/28/17 12/29/17 12/29/17 12/29/17 07:00 15:00 23:00 07:00 15:00 23:00 Intake Total 580 ml 696 ml 100 ml 100 ml Output Total 45 ml 20 ml 25 ml Balance -45 ml 580 ml 676 ml 100 ml 75 ml Intake Oral 480 ml IV Total 100 ml 696 ml 100 ml 100 ml Drainage Total 45 ml 20 ml 25 ml # Voids 3 1 1 2 # Bowel Movements 3 1 Result Diagram: 12/29/17 0704 12/29/17 0704 Imaging Last Impressions Chest X-Ray 12/28/17 0000 Signed Impressions: Service Date/Time: December 17:25 - CONCLUSION: Right basilar consolidation/effusion. Jeffry Irwin MD Percutaneous Cholangiogram 12/26/17 0000 Signed Impressions: Service Date/Time: Tuesday, December 26, 2017 14:06 - CONCLUSION: Uncomplicated percutaneous cholecystostomy as above. Jersey Bedoya MD Abdomen/Pelvis CT 12/25/17 0148 Signed Impressions: Service Date/Time: Monday, December 25, 2017 02:52 - CONCLUSION: 1. The gallbladder is abnormal. It contains stones and demonstrates wall thickening/edema. This findings can be seen with acute cholecystitis. 2. No other acute finding is identified. Jersey Jimenez MD Objective Remarks awake and alert lungs- decreased breath sounds , no rales or hweezes regular rhythm abdomen-soft, good bowel sounds- right UQ- - cholecystostomy tube inplace extremities no edema Procedures 12/26/17 percutaneous cholangiogram with cholecystostomy tube placement A/P Problem List: (1) Coronary artery disease ICD Code: I25.10 - Atherosclerotic heart disease of [place] coronary artery without angina pectoris (2) Hypertension ICD Code: I10 - Essential (primary) hypertension (3) Nausea & vomiting ICD Code: R11.2 - Nausea with vomiting, unspecified (4) Acute cholecystitis ICD Code: K81.0 - Acute cholecystitis Status: Acute (5) Sepsis ICD Code: A41.9 - Sepsis, unspecified organism Assessment and Plan 62 years old male Acute cholecystitis: Appreciate general surgery recommendations. Status post cholecystostomy tube placement. Continue IV antibiotics. Pneumonia - New Fever- CXR with consolidation vs Pleural effusion, small continue on Zosyn will get Pulmonary consult for evaluation-d/w Dr. Ramirez ? tap for fever work up if fluid significant Hypertension- : Continue amlodipine, metoprolol- 25 mg po bid. Vasotec as needed. Coronary artery disease: BNP normal. Admitting MD- spoke with the patient's acid dumper, who stated that it was okay to stop Effient. Hyperlipidemia: Resume statin. DVT prophylaxis: Thad, OREN arvizu.- patient up and ambulatin Discharge Planning Will not discharge yet with new fever and persistent leukocytosis D/w patient and that we will get pulmonary evaluation Emmy Hinojosa MD Dec 29, 2017 11:46
[2017-12-29] MEDS: ATORVASTATIN 40 MG TAB PO SCH (21:03)
[2017-12-30] VITALS (7 sets, daily range): BP systolic 153–192; BP diastolic 70–88; PULSE 78–98; RESP 18–20; TEMP 97.3–98.7; O2SAT 91–95
[2017-12-30] MEDS: PIPERACIL-TAZO 4.5 GM PREMIX 100 ML IV SCH ×4 (03:28→23:25)
--- NOTE | 2017-12-30 06:48 | MB ---
cc: [facility] CALL DATE OF CONSULTATION 12/29/[address] Hinojosa REASON FOR CONSULTATION Evaluation of pleural effusions. HISTORY OF PRESENT ILLNESS Mr. Collado is a pleasant 51-year-old white male who has a history of coronary artery disease status post stent placement and hypertension. The patient came to the hospital with abdominal pain, nausea and vomiting. He was found to have acute cholecystectomy. He underwent percutaneous cholangiogram. He is feeling much better and his white cell count is improving. Today he was complaining of shortness breath and has some wheezing, did not have fever or chills. No night sweats. He had a chest x-ray done which shows he has right basilar consolidation with effusion. His CBC showed white blood cell count of 18.2, hemoglobin 13.9, hematocrit 39.9, MCV 92, platelet count 248. His sodium 140, potassium 3.6, chloride 101, CO2 32, BUN 18, creatinine 1.1. His INR is 1.5. Blood cultures are negative. PAST MEDICAL HISTORY 1. Significant for history of hypertension. 2. Coronary artery disease status post stent placement. 3. History of shingles. MEDICATIONS He is currently taking - 1. Metoprolol 25 mg a day. 2. Oxycodone for pain. 3. Amlodipine 2.5 mg. 4. Zosyn IV. ALLERGIES CODEINE. SOCIAL HISTORY He is . He is retired. 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 No history of smoking or alcohol use. FAMILY HISTORY He has two daughters. REVIEW OF SYSTEMS Normally he is up and active. Weight is stable. No DVT or pulmonary embolism. No seizure, stroke or epilepsy. PHYSICAL EXAMINATION GENERAL: A well-built, well-nourished male in no acute distress but has audible wheezing. VITAL SIGNS: Blood pressure 150/74, heart rate 80, respirations 18. Temperature 98.4. HEENT EXAMINATION: Unremarkable. NECK: Supple. JVP not raised. CHEST: Equal bilateral chest excursion. Expiratory rhonchi. CV: S1 and S2 normal. ABDOMEN: Benign. EXTREMITIES: No edema. IMPRESSION 1. Right basal infiltrate and pleural effusion. 2. Mild mucositis next. 3. Bronchospasm. He has no known history of asthma or smoking. 4. Recent acute cholecystitis. 5. Coronary artery disease status post stent placement. PLAN I discussed with the patient we will give him aerosol treatment, albuterol and Atrovent and Crestor, ultrasound-guided thoracentesis if he has any significant fluid. Continue his present antibiotics. Supplement his oxygen. Further treatment will depend on his course in the hospital. Thank you, Dr. Hinojosa, for this consult. MD ÁNGEL Lopez/RASHAUN /9:38 PM /6:30 AM
[2017-12-30] MEDS: DOCUSATE SODIUM 50 MG/SENNA 8.6 MG TAB PO SCH ×2 (08:45→21:15)
[2017-12-30] MEDS: SODIUM CHLORIDE 0.9% FLUSH 10 ML FLUSH IV FLUSH SCH ×2 (08:46→21:13)
[2017-12-30] MEDS: METOPROLOL TARTRATE 25 MG TAB PO SCH ×2 (08:46→21:14)
[2017-12-30] MEDS: amLODIPine BESYLATE 5 MG TAB PO SCH (08:46)
[2017-12-30] MEDS: RESP: ALBUTEROL 2.5 MG/IPRATROPIUM 0.5 MG NEB (PRN) NEB ×3 (09:21→20:29)
[2017-12-30] MEDS: HYDROmorphone HCL PF 2 MG/ML VIAL IV PUSH PRN ×3 (09:56→19:42)
--- NOTE | 2017-12-30 12:36 | HHI.PR ---
Subjective Remarks patient up on chair having persistent right upper quadrant discomfort - relieved with prn Dilaudid no nausea or vomiting, tolerating po minimal cough- dry Objective Vitals Vital Signs Date Time Temp Pulse Resp B/P (MAP) Pulse Ox O2 Delivery O2 Flow Rate FiO2 12/30/17 08:00 98.3 87 20 155/81 (105) 95 12/30/17 04:36 97.9 92 18 95 12/30/17 00:56 98.6 78 19 166/82 (110) 93 12/29/17 22:45 Nasal Cannula 2.00 12/29/17 20:47 94 Nasal Cannula 2.00 12/29/17 20:40 98.4 81 18 158/74 (102) 94 12/29/17 16:00 98.9 89 20 130/74 (92) 94 I/O 12/29/17 12/29/17 12/29/17 12/30/17 12/30/17 12/30/17 07:00 15:00 23:00 07:00 15:00 23:00 Intake Total 100 ml 100 ml 100 ml 240 ml Output Total 25 ml 20 ml Balance 100 ml 75 ml 100 ml 220 ml Intake Oral 240 ml IV Total 100 ml 100 ml 100 ml Drainage Total 25 ml 20 ml # Voids 1 2 4 # Bowel Movements 1 Result Diagram: 12/29/1770312/29/17 0704 Imaging Last Impressions Chest X-Ray 12/28/17 0000 Signed Impressions: Service Date/Time: December 17:25 - CONCLUSION: Right basilar consolidation/effusion. Jeffry Irwin MD Percutaneous Cholangiogram 12/26/17 0000 Signed Impressions: Service Date/Time: Tuesday, December 26, 2017 14:06 - CONCLUSION: Uncomplicated percutaneous cholecystostomy as above. Jersey Bedoya MD Abdomen/Pelvis CT 12/25/17 0148 Signed Impressions: Service Date/Time: Monday, December 25, 2017 02:52 - CONCLUSION: 1. The gallbladder is abnormal. It contains stones and demonstrates wall thickening/edema. This findings can be seen with acute cholecystitis. 2. No other acute finding is identified. Jersey Jimenez MD Objective Remarks awake and alert lungs- decreased breath sounds , no rales or wheezes regular rhythm abdomen-soft, good bowel sounds- right UQ- mild tenderness- - cholecystostomy tube inplace, no guarding extremities no edema Procedures 12/26/17 percutaneous cholangiogram with cholecystostomy tube placement A/P Problem List: (1) Coronary artery disease ICD Code: I25.10 - Atherosclerotic heart disease of [place] coronary artery without angina pectoris (2) Hypertension ICD Code: I10 - Essential (primary) hypertension (3) Nausea & vomiting ICD Code: R11.2 - Nausea with vomiting, unspecified (4) Acute cholecystitis ICD Code: K81.0 - Acute cholecystitis Status: Acute (5) Sepsis ICD Code: A41.9 - Sepsis, unspecified organism Assessment and Plan 62 years old male Acute cholecystitis: Appreciate general surgery recommendations. Status post cholecystostomy tube placement still with intermittent RUQ discomfort Continue IV antibiotics. was seen by Dr. Medina- recom OP ff up for elective cholecystectomy in 4-6 weeks family have questions regarding - timing of surgery I informed them that he was on Effiant- - on admission and needs to be off it for procedure- at least 5-7 days will reconsult GS - to reevaluate timing of surgery- ? sooner patient having abdominal discomfort with persistent leukocytosis has been off Effiant for 5 days Pneumonia -12/29- New Fever- CXR with consolidation with Pleural effusion continue on Zosyn US done- minimal fluid- only 50 cc d/w Pulmonary Dr. Jose Luis Saucedo - will order for CT of the chest abdomen/chest Persistent Leukocytosis on Zosyn Hypertension- : Continue amlodipine, metoprolol- 25 mg po bid. Vasotec as needed. Coronary artery disease: BNP normal. Admitting MD- spoke with the patient's upholstery covers inspector, who stated that it was okay to stop Effient. Hyperlipidemia: Resume statin. DVT prophylaxis: OREN Oneil.- patient up and ambulating Emmy Hinojosa MD Dec 30, 2017 12:36
[2017-12-30 12:54] LABS: AUTOMATED NEUTROPHIL # 16.6 TH/MM3 (1.8-7.7); BASOPHIL % 0.2 % (0.0-2.0); EOSINOPHIL # 0.2 TH/MM3 (0-0.4); EOSINOPHIL % 0.8 % (0.0-4.0); HEMATOCRIT 42.4 % (39.0-51.0); HEMOGLOBIN 14.7 GM/DL (13.0-17.0); LYMPH % 4.9 % (9.0-44.0); MEAN CORPUSCULAR HEMOGLOBIN 32.3 PG (27.0-34.0); MEAN CORPUSCULAR HGB CONC 34.7 % (32.0-36.0); MEAN PLATELET VOLUME 7.1 FL (7.0-11.0); MONO % 11.3 % (0.0-8.0); MONOCYTE # 2.3 TH/MM3 (0-0.9); NEUT % 82.8 % (16.0-70.0); PLATELET COUNT 286 TH/MM3 (150-450); RED BLOOD COUNT 4.56 MIL/MM3 (4.50-5.90); RED CELL DISTRIBUTION WIDTH 14.1 % (11.6-17.2)
[2017-12-30 13:15] LABS: ALBUMIN 2.4 GM/DL (3.4-5.0); ALT (GPT) 51 U/L (12-78); AST (GOT) 49 U/L (15-37); BICARBONATE 30.8 MEQ/L (21.0-32.0); BLOOD UREA NITROGEN 15 MG/DL (7-18); CALCIUM 8.8 MG/DL (8.5-10.1); CHLORIDE 98 MEQ/L (98-107); CREATININE 0.89 MG/DL (0.60-1.30); GLOMERULAR FILTRATION RATE 86 ML/MIN (>89); GLUCOSE,RANDOM 128 MG/DL (74-106); SODIUM (NA) 135 MEQ/L (136-145)
[2017-12-30 13:24] LABS: ALKALINE PHOSPHATASE 256 U/L (45-117); TOTAL BILIRUBIN ADULT 1.5 MG/DL (0.2-1.0); TOTAL PROTEIN 7.5 GM/DL (6.4-8.2)
[2017-12-30 13:26] LABS: BANDS 1 % (0-6); LYMPHOCYTES 6 % (9-44); MONOCYTES 6 % (0-8); NEUTROPHIL # MANUAL DIFF 17.6 TH/MM3 (1.8-7.7); POLYS (SEG NEUTROPHILS) 87 % (16-70)
--- NOTE | 2017-12-30 13:37 | RADRPT ---
EXAM DATE/TIME: 12/30/2017 11:10 [facility] COMPARISON: No previous studies available for comparison. EXTERNAL COMPARISON : [facility], XR CHEST PA & LAT, June 15, 2011 INDICATIONS : Right pleural effusion. MEDICAL HISTORY : Myocardial infarction. Hypercholesterolemia. Hypertension. Coronary artery disease. SURGICAL HISTORY : Tonsillectomy. Coronary artery stent. Appendectomy. Adenoidectomy. Knee surgery x4. Shoulder surgery. ENCOUNTER: Initial ACUITY: 2 days PAIN SCORE: 2/10 LOCATION: Right chest MEASUREMENTS: SKIN TO PARIETAL PLEURA: Inadequate fluid SKIN TO MAX SAFE DEPTH: Inadequate fluid ESTIMATED FLUID VOLUME: 84.88 cc FLUID COMPOSITION: simple FINDINGS: No marking was performed. Ultrasound of the right chest demonstrates a small pleural effusion. Volume estimated at 85 mL. CONCLUSION: Small right-sided pleural effusion.. Alanis Cross MD on December 30, 2017 at 13:34 Board Certified Radiologist. This report was verified electronically.
--- NOTE | 2017-12-30 13:44 | HHI.PR ---
Subjective Subjective Notes c/o pain with inspiration no N/V no abd pain Objective Vitals/I&O Vital Signs Date Time Temp Pulse Resp B/P (MAP) Pulse Ox O2 Delivery O2 Flow Rate FiO2 12/30/17 12:00 98.2 87 20 153/70 (97) 93 12/29/17 22:45 Nasal Cannula 2.00 Labs Laboratory Tests Test 12/30/17 00:11 12/30/17 12:17 Lactic Acid Level 1.1 White Blood Count 20.0 Red Blood Count 4.56 Hemoglobin 14.7 Hematocrit 42.4 Mean Corpuscular Volume 93.0 Mean Corpuscular Hemoglobin 32.3 Mean Corpuscular Hemoglobin Concent 34.7 Red Cell Distribution Width 14.1 Platelet Count 286 Mean Platelet Volume 7.1 Neutrophils (%) (Auto) 82.8 Lymphocytes (%) (Auto) 4.9 Monocytes (%) (Auto) 11.3 Eosinophils (%) (Auto) 0.8 Basophils (%) (Auto) 0.2 Neutrophils # (Auto) 16.6 Lymphocytes # (Auto) 1.0 Monocytes # (Auto) 2.3 Eosinophils # (Auto) 0.2 Basophils # (Auto) 0.0 CBC Comment AUTO DIFF Differential Total Cells Counted 100 Neutrophils % (Manual) 87 Band Neutrophils % 1 Lymphocytes % 6 Monocytes % 6 Neutrophils # (Manual) 17.6 Differential Comment FINAL DIFF MANUAL Platelet Estimate NORMAL Platelet Morphology Comment NORMAL Red Cell Morphology Comment NORMAL Blood Urea Nitrogen 15 Creatinine 0.89 Random Glucose 128 Total Protein 7.5 Albumin 2.4 Calcium Level 8.8 Alkaline Phosphatase 256 Aspartate Amino Transf (AST/SGOT) 49 Alanine Aminotransferase (ALT/SGPT) 51 Total Bilirubin 1.5 Sodium Level 135 Potassium Level 3.5 Chloride Level 98 Carbon Dioxide Level 30.8 Anion Gap 6 Estimat Glomerular Filtration Rate 86 Date/Time Source Procedure Growth Status 12/25/17 14:22 Blood Peripheral Aerobic Blood Culture - Final NO GROWTH IN 5 DAYS Complete 12/25/17 14:22 Blood Peripheral Anaerobic Blood Culture - Final NO GROWTH IN 5 DAYS Complete Radiology Last Impressions Abdomen/Pelvis CT 12/25/17 0148 Signed Impressions: Service Date/Time: Monday, December 25, 2017 02:52 - CONCLUSION: 1. The gallbladder is abnormal. It contains stones and demonstrates wall thickening/edema. This findings can be seen with acute cholecystitis. 2. No other acute finding is identified. Jersey Jimenez MD Abdomen: Non-tender Extremities: Perfused Narrative Exam cholecystostomy tube serosang drainage A/P Assessment and Plan pt with pneumonia cholecystitis harmony diet ct chest today will get study through cholecystostomy tube cont abx Omar Solitario MD Dec 30, 2017 13:44
[2017-12-30] MEDS: ATORVASTATIN 40 MG TAB PO SCH (21:14)
[2017-12-31] VITALS (7 sets, daily range): BP systolic 85–186; BP diastolic 50–84; PULSE 82–101; RESP 18–21; TEMP 97.5–98.5; O2SAT 92–94
[2017-12-31] MEDS ORDERED: IOHEXOL 350 MG/ML 10 ML VIAL (for RAD DIAG) IVCONTRAST ONE (00:51)
--- NOTE | 2017-12-31 01:38 | RADRPT ---
EXAM DATE/TIME: 12/31/2017 00:51 [facility] COMPARISON: CT ABDOMEN & PELVIS W CONTRAST, December 25, 2017, 2:52. CHOLECYSTOSTOMY, PERCUTANEOUS, December 26, 2017, 14:06. INDICATIONS : Cholecystitis with drain placed. ORAL CONTRAST: No oral contrast ingested. RADIATION DOSE: 20.20 CTDIvol (mGy) ; Patient body habitus; Combined studies MEDICAL HISTORY : Cardiovascular disease. Hypertension. SURGICAL HISTORY : Appendectomy. ENCOUNTER: Subsequent ACUITY: 1 week PAIN SCALE: 6/10 LOCATION: abdomen TECHNIQUE: Volumetric scanning of the abdomen was performed. Using automated exposure control and adjustment of the mA and/or kV according to patient size, radiation dose was kept as low as reasonably achievable to obtain optimal diagnostic quality images. DICOM format image data is available electronically for review and comparison. FINDINGS: Comparison is December 25. There is development of a right pleural effusion and basilar atelectasis. S chest CT report. No acute findings in the liver, spleen, adrenals, kidneys or pancreas. A cholecystostomy drain is pre sent with numerous calcified gallstones in the gallbladder. There are some inflammatory or edematous changes around the gallbladder with gallbladder wall thickening. No free air or significant free fluid. No bowel obstruction. No acute bony abnormalities. CONCLUSION: 1. Cholecystostomy drain present. Gallbladder wall remains thickened with some pericholecystic inflam matory or edematous changes. Numerous calcified gallstones. No biliary ductal dilatation. 2. Development of right pleural effusion and basilar atelectasis. Yonatan Hassan MD on December 31, 2017 at 1:32 Board Certified Radiologist. This report was verified electronically.
--- NOTE | 2017-12-31 01:43 | RADRPT ---
EXAM DATE/TIME: 12/31/2017 00:51 [facility] COMPARISON: No previous studies available for comparison. INDICATIONS : Shortness of breath; possible effusion IV CONTRAST: 87 cc Omnipaque 350 (iohexol) IV ; Cumulative dose for multiple exams. RADIATION DOSE: 20.20 CTDIvol (mGy) ; Combined studies; Patient body habitus MEDICAL HISTORY : Cardiovascular disease. Hypertension. SURGICAL HISTORY : Appendectomy. ENCOUNTER: Subsequent ACUITY: 1 week PAIN SCALE: 3/10 LOCATION: chest TECHNIQUE: Volumetric scanning of the chest was performed. Using automated exposure control and adjustment of t he mA and/or kV according to patient size, radiation dose was kept as low as reasonably achievable to obtain optimal diagnostic quality images. DICOM format image data is available electronically for review and comparison. Follow-up recommendations for detected pulmonary nodules are based at a minimum on nodule size and pa tient risk factors according to Fleischner Society Guidelines. FINDINGS: Compared with abdomen CT from December 25 patient has developed a right pleural effusion which appears to be at least partially loculated. There is compressive atelectasis of the right lower lobe and por tions of the right upper lobe and middle lobe. There is no significant left effusion. No pericardial effusion. Moderate coronary calcifications. No hilar, mediastinal or axillary adenopathy. See abdomen CT for findings below the diaphragm. No acu te bony abnormalities. CONCLUSION: 1. Development of moderate to large right pleural effusion which appears at least partially loculated with compressive atelectasis of portions of the right lung as above. 2. Moderate coronary calcifications. 3. Abdomen reveals cholecystectomy tube with small amount of right free fluid around the liver. There are inflammatory or edematous changes around the gallbladder which contains multiple calcified galls tones. Yonatan Hassan MD on December 31, 2017 at 1:37 Board Certified Radiologist. This report was verified electronically.
[2017-12-31] MEDS: PIPERACIL-TAZO 4.5 GM PREMIX 100 ML IV SCH ×3 (06:14→16:51)
[2017-12-31] MEDS: METOPROLOL TARTRATE 25 MG TAB PO SCH ×5 (08:04→20:36)
[2017-12-31] MEDS: DOCUSATE SODIUM 50 MG/SENNA 8.6 MG TAB PO SCH ×2 (08:04→20:36)
[2017-12-31] MEDS: amLODIPine BESYLATE 5 MG TAB PO SCH (08:04)
[2017-12-31] MEDS: HYDROmorphone HCL PF 2 MG/ML VIAL IV PUSH PRN ×3 (08:05→20:33)
[2017-12-31] MEDS: SODIUM CHLORIDE 0.9% FLUSH 10 ML FLUSH IV FLUSH SCH ×2 (08:05→20:32)
[2017-12-31] MEDS: RESP: ALBUTEROL 2.5 MG/IPRATROPIUM 0.5 MG NEB (PRN) NEB ×2 (09:28→16:15)
[2017-12-31 10:32] LABS: AUTOMATED NEUTROPHIL # 14.3 TH/MM3 (1.8-7.7); BASOPHIL % 0.2 % (0.0-2.0); EOSINOPHIL # 0.2 TH/MM3 (0-0.4); HEMATOCRIT 42.6 % (39.0-51.0); HEMOGLOBIN 14.6 GM/DL (13.0-17.0); LYMPH % 7.4 % (9.0-44.0); LYMPHOCYTE # 1.3 TH/MM3 (1.0-4.8); MEAN CELL VOLUME 92.7 FL (80.0-100.0); MEAN CORPUSCULAR HEMOGLOBIN 31.7 PG (27.0-34.0); MEAN CORPUSCULAR HGB CONC 34.2 % (32.0-36.0); MEAN PLATELET VOLUME 7.1 FL (7.0-11.0); MONOCYTE # 1.8 TH/MM3 (0-0.9); NEUT % 81.4 % (16.0-70.0); PLATELET COUNT 372 TH/MM3 (150-450); RED CELL DISTRIBUTION WIDTH 14.4 % (11.6-17.2); WHITE BLOOD COUNT 17.5 TH/MM3 (4.0-11.0)
[2017-12-31 10:48] LABS: ALBUMIN 2.4 GM/DL (3.4-5.0); AST (GOT) 52 U/L (15-37); BICARBONATE 31.6 MEQ/L (21.0-32.0); BLOOD UREA NITROGEN 13 MG/DL (7-18); CALCIUM 9.3 MG/DL (8.5-10.1); CHLORIDE 95 MEQ/L (98-107); CREATININE 0.98 MG/DL (0.60-1.30); GLOMERULAR FILTRATION RATE 77 ML/MIN (>89); GLUCOSE,RANDOM 158 MG/DL (74-106); SODIUM (NA) 133 MEQ/L (136-145)
[2017-12-31 10:50] LABS: ALT (GPT) 52 U/L (12-78)
[2017-12-31 10:51] LABS: ALKALINE PHOSPHATASE 310 U/L (45-117); TOTAL BILIRUBIN ADULT 1.3 MG/DL (0.2-1.0); TOTAL PROTEIN 7.7 GM/DL (6.4-8.2)
[2017-12-31] MEDS ORDERED: LIDOCAINE HCL 1% 20 ML VIAL ONE ×2 (13:17→15:12)
--- NOTE | 2017-12-31 13:52 | HHI.PR ---
Subjective Remarks minimal abdominal discomfort tolerating po, no nausea or vomiting T down Objective Vitals Vital Signs Date Time Temp Pulse Resp B/P (MAP) Pulse Ox O2 Delivery O2 Flow Rate FiO2 12/31/17 12:00 98.5 89 21 160/78 (105) 94 12/31/17 08:00 98.4 92 21 186/84 (118) 92 12/31/17 04:00 97.5 92 18 164/78 (106) 92 12/31/17 04:00 101 12/31/17 02:13 97 Nasal Cannula 2.00 12/31/17 00:00 82 12/31/17 00:00 97.6 88 20 175/84 (114) 92 12/30/17 20:30 94 21 12/30/17 20:00 97.3 98 18 192/88 (122) 91 12/30/17 20:00 90 12/30/17 16:00 98.7 91 20 162/77 (105) 93 I/O 12/30/17 12/30/17 12/30/17 12/31/17 12/31/17 12/31/17 07:00 15:00 23:00 07:00 15:00 23:00 Intake Total 240 ml 200 ml Output Total 20 ml 10 ml Balance 220 ml -10 ml 200 ml Intake Oral 240 ml IV Total 200 ml Drainage Total 20 ml 10 ml # Voids 4 3 Result Diagram: 12/31/17 1010 12/31/17 1010 Imaging Last Impressions Chest Ultrasound 12/30/17 0600 Signed Impressions: Service Date/Time: Saturday, December 30, 2017 11:10 - CONCLUSION: Small right-sided pleural effusion.. Alanis Cross MD Chest CT 12/30/17 0000 Signed Impressions: Service Date/Time: Sunday, December 31, 2017 00:51 - CONCLUSION: 1. Development of moderate to large right pleural effusion which appears at least partially loculated with compressive atelectasis of portions of the right lung as above. 2. Moderate coronary calcifications. 3. Abdomen reveals cholecystectomy tube with small amount of right free fluid around the liver. There are inflammatory or edematous changes around the gallbladder which contains multiple calcified gallstones. Yonatan Hassan MD Abdomen CT 12/30/17 0000 Signed Impressions: Service Date/Time: Sunday, December 31, 2017 00:51 - CONCLUSION: 1. Cholecystostomy drain present. Gallbladder wall remains thickened with some pericholecystic inflammatory or edematous changes. Numerous calcified gallstones. No biliary ductal dilatation. 2. Development of right pleural effusion and basilar atelectasis. Yonatan Hassan MD Chest X-Ray 12/28/17 0000 Signed Impressions: Service Date/Time: December 17:25 - CONCLUSION: Right basilar consolidation/effusion. Jeffry Irwin MD Percutaneous Cholangiogram 12/26/17 0000 Signed Impressions: Service Date/Time: Tuesday, December 26, 2017 14:06 - CONCLUSION: Uncomplicated percutaneous cholecystostomy as above. Jersey Bedoya MD Abdomen/Pelvis CT 12/25/17 0148 Signed Impressions: Service Date/Time: Monday, December 25, 2017 02:52 - CONCLUSION: 1. The gallbladder is abnormal. It contains stones and demonstrates wall thickening/edema. This findings can be seen with acute cholecystitis. 2. No other acute finding is identified. Jersey Jimenez MD Objective Remarks awake and alert, appears depressed lungs- decreased breath sounds , no rales or wheezes regular rhythm abdomen-soft, good bowel sounds- non tender - cholecystostomy tube inplace, no guarding extremities no edema Procedures 12/26/17 percutaneous cholangiogram with cholecystostomy tube placement A/P Problem List: (1) Coronary artery disease ICD Code: I25.10 - Atherosclerotic heart disease of [place] coronary artery without angina pectoris (2) Hypertension ICD Code: I10 - Essential (primary) hypertension (3) Nausea & vomiting ICD Code: R11.2 - Nausea with vomiting, unspecified (4) Acute cholecystitis ICD Code: K81.0 - Acute cholecystitis Status: Acute (5) Sepsis ICD Code: A41.9 - Sepsis, unspecified organism Assessment and Plan 62 years old male Acute cholecystitis: Appreciate general surgery recommendations. Status post cholecystostomy tube placement still with intermittent RUQ discomfort Continue IV antibiotics. GS ff-original plan for elective cholecystectomy in 4-6 weeks. I reconsulted them 12/30 to reconsider earlier timing of surgery has been off Effiant- - least 5-7 days Pneumonia -12/29 New Fever- T down CXR with consolidation with New Pleural effusion with subdiaphragmatic fluid collection -? leak Persistent Leukocytosis continue on Zosyn d/w Pulmonary Dr. Jose Luis Saucedo -regarding CT of the chest/abdomen IR consulted for thoracentesis today- - fluid studies ordered d/w - Dr. Solitario- regarding fluid under the diaphragm on CT - minimal- no need to drain at this time- proceed with thoracentesis on Zosyn ID consulted for recommendation Hypertension- : Continue amlodipine, metoprolol- 25 mg po bid. Vasotec as needed. HYpokalemia- replace IV and po today. FF BMP Coronary artery disease: BNP normal. Admitting MD- spoke with the patient's ui software developer, who stated that it was okay to stop Effient. Continue amlodipine. Increase Lopressor to 25 mg po q 8 Hyperlipidemia: statin. DVT prophylaxis: OREN Oneil.- patient up and ambulating d/w Pulmo- Dr. Saucedo - Dr. Levy and family Emmy Hinojosa MD Dec 31, 2017 13:52
[2017-12-31] MEDS ORDERED: POTASSIUM BICARBONATE 25 MEQ EFFERVESCENT TAB PO ONE ×2 (14:00→19:45)
[2017-12-31] MEDS ORDERED: fentaNYL CITRATE 250 MCG/5 ML AMP ONE (14:19)
[2017-12-31] MEDS: POTASSIUM CHLOR 10 MEQ PREMIX 100 ML IV SCH ×4 (14:51→22:38)
--- NOTE | 2017-12-31 15:58 | PD.RAD ---
Post CT Procedure Prog Note Pre Procedure Diagnosis: (1) Sepsis Post Procedure Diagnosis: (1) Sepsis Procedure Date: Dec 31, 2017 Supervising Radiologist: David Nichols Anesthesia: Local Plan of Activity Patient to Unit: Nursing Unit Patient Condition: Good See PACS Report for procedural detail/treatment David Nichols MD Dec 31, 2017 15:58
[2017-12-31] MEDS ORDERED: HYDROmorphone HCL PF 1 MG/ML VIAL IV PUSH PRN (16:00)
--- NOTE | 2017-12-31 16:23 | PD.ID.CON ---
History of Present Illness Service Infectious disease Consult Requested By Reason for Consult Evaluation and management of sepsis, acute cholecystitis and right-sided pleural effusion rule out empyema Primary Care Physician Sandra Moreno MD Diagnoses: History of Present Illness Mr. Glynn is a 42-year-old male who presented to the emergency department complains of right upper quadrant abdominal pain which started day before admission. He reports that this started after he ate a hamburger. He reports nausea and vomiting associated with pain. He reports mild constipation. Denies any fever or chills. Patient was seen by surgery Dr. Medina. Interventional radiology was consulted for and a IR guided cholecystostomy tube was placed. Patient was reportedly starting to do better was close to being discharged. Due to some respiratory issues and discomfort on the right side patient underwent a chest x-ray followed by a CT which showed right-sided effusion possibly loculated. Dr. Saucedo pulmonology is on case and ordered a CT-guided thoracentesis to rule out empyema. Infectious disease is consulted for evaluation and management of sepsis, acute cholecystitis and right-sided pleural effusion rule out empyema. Review of Systems ROS Limitations: Poor Historian Constitutional: DENIES: Diaphoretic episodes, Fatigue, Fever, Weight gain, Weight loss, Chills, Dizziness, Change in appetite, Night Sweats Endocrine: DENIES: Heat/cold intolerance, Polydipsia, Polyuria, Polyphagia Eyes: DENIES: Blurred vision, Diplopia, Eye inflammation, Eye pain, Vision loss , Photosensitivity, Double Vision Ears, nose, mouth, throat: DENIES: Tinnitus, Hearing loss, Vertigo, Nasal discharge, Oral lesions, Throat pain, Hoarseness, Ear Pain, Running Nose, Epistaxis, Sinus Pain, Toothache, Odynophagia Respiratory: DENIES: Apneas, Cough, Snoring, Wheezing, Hemoptysis, Sputum production, Shortness of breath Cardiovascular: DENIES: Chest pain, Palpitations, Syncope, Dyspnea on Exertion , PND, Lower Extremity Edema, Orthopnea, Claudication Gastrointestinal: COMPLAINS OF: Abdominal pain, Constipation, Nausea Genitourinary: DENIES: Sexual dysfunction, Urinary frequency, Urinary incontinence, Urgency, Hematuria, Dysuria, Nocturia, Penile Discharge, Testicular Pain, Testicular Swelling Musculoskeletal: DENIES: Joint pain, Muscle aches, Stiffness, Joint Swelling, Back pain, Neck pain Integumentary: DENIES: Abnormal pigmentation, Nail changes, Pruritus, Rash Hematologic/lymphatic: DENIES: Bruising, Lymphadenopathy Immunologic/allergic: DENIES: Eczema, Urticaria Neurologic: DENIES: Abnormal gait, Headache, Localized weakness, Paresthesias, Seizures, Speech Problems, Tremor, Poor Balance Psychiatric: DENIES: Anxiety, Confusion, Mood changes, Depression, Hallucinations, Agitation, Suicidal Ideation, Homicidal Ideation, Delusions Except as stated in HPI: all other systems reviewed are Neg Past Family Social History Allergies: Coded Allergies: codeine (Verified Allergy, Unknown, 12/25/17) Past Medical History Coronary artery disease Hyperlipidemia Hypertension History of shingles Past Surgical History Appendectomy Cardiac catheterization with stent placement Tonsillectomy/adenoidectomy Reported Medications Reported Meds & Active Scripts Active Oxycodone-Acetaminophen 5-325 mg Tab 1-2 Tab PO Q4H PRN Metronidazole 500 Mg Tab 500 Mg PO TID Levofloxacin 750 Mg Tablet 750 Mg PO DAILY Nitroglycerin SL (Nitroglycerin) 0.4 Mg Subl 0.4 Mg SL DIRECTED PRN ONE TABLET UNDER THE TONGUE NEEDED FOR CHEST PAIN, MAY REPEAT EVERY FIVE MINUTES FOR A TOTAL OF 3 DOSES OR CALL 911 IF NO RELIEF Atorvastatin (Atorvastatin Calcium) 40 Mg Tab 40 Mg PO HS Effient (Prasugrel) 10 Mg Tab 10 Mg PO DAILY 30 Days Reported Aspirin Low Dose (Aspirin) 81 Mg Chew 81 Mg CHEW DAILY Metoprolol Tartrate 25 Mg Tab 25 Mg PO DAILY Amlodipine (Amlodipine Besylate) 2.5 Mg Tab 2.5 Mg PO DAILY Active Ordered Medications Current Medications Medications (Trade) Dose Ordered Sig/Maeve Route Start Time Stop Time Status Last Admin Piperacillin Sod/ Tazobactam Sod 100 ml @ 200 mls/hr Q6H IV 12/25/17 04:00 12/31/17 16:51 (NS Flush) 2 ml UNSCH PRN IV FLUSH 12/25/17 03:45 (NS Flush) 2 ml BID IV FLUSH 12/25/17 09:00 12/31/17 20:32 (Zofran Inj) 4 mg Q6H PRN IVP 12/25/17 03:45 (Tylenol) 650 mg Q6H PRN PO 12/25/17 03:45 12/28/17 11:53 (Kaya-Colace) 1 tab BID PO 12/25/17 09:00 12/31/17 20:36 (Milk Of Magnesia Liq) 30 ml Q12H PRN PO 12/25/17 03:45 (Senokot) 17.2 mg Q12H PRN PO 12/25/17 03:45 (Dulcolax Supp) 10 mg DAILY PRN RECTAL 12/25/17 03:45 (Lactulose Liq) 30 ml DAILY PRN PO 12/25/17 03:45 (Vasotec Inj) 1.25 mg Q6H PRN IV PUSH 12/25/17 10:30 (Lipitor) 40 mg HS PO 12/27/17 21:00 12/31/17 20:34 (Percocet 5-325 Mg) 1 tab Q4H PRN PO 12/28/17 13:30 (Percocet 5-325 Mg) 2 tab Q4H PRN PO 12/28/17 13:30 12/29/17 19:20 (Lopressor) 25 mg Q12HR PO 12/28/17 21:00 12/31/17 08:04 (Duoneb Neb) 1 ampule Q6HR NEB PRN NEB 12/29/17 21:45 12/31/17 16:15 (Dilaudid Pf Inj) 0.5 mg Q4H PRN IV PUSH 12/30/17 09:30 12/31/17 20:33 (Norvasc) 5 mg DAILY PO 12/31/17 09:00 12/31/17 08:04 (Lopressor) 25 mg Q8HR PO 12/31/17 15:45 12/31/17 20:36 (Dilaudid Pf Inj) 1 mg Q2HR PRN IV PUSH 12/31/17 16:00 01/01/18 16:00 12/31/17 15:15 Fluconazole/ Sodium Chloride 50 ml @ 50 mls/hr Q24H IV 12/31/17 18:00 12/31/17 18:27 Potassium Chloride 100 ml @ 100 mls/hr Q1H IV 12/31/17 20:00 12/31/17 21:59 12/31/17 20:32 Family History COPD Heart disease Social History Denies tobacco or illicit drug use. Rare alcohol use. Physical Exam Vital Signs Vital Signs Date Time Temp Pulse Resp B/P (MAP) Pulse Ox O2 Delivery O2 Flow Rate FiO2 12/31/17 12:00 98.5 89 21 160/78 (105) 94 12/31/17 09:29 Nasal Cannula 2.00 12/31/17 09:00 95 Nasal Cannula 2.00 12/31/17 08:00 98.4 92 21 186/84 (118) 92 12/31/17 04:00 97.5 92 18 164/78 (106) 92 12/31/17 04:00 101 12/31/17 02:13 97 Nasal Cannula 2.00 12/31/17 00:00 82 12/31/17 00:00 97.6 88 20 175/84 (114) 92 12/30/17 20:30 94 21 12/30/17 20:00 97.3 98 18 192/88 (122) 91 12/30/17 20:00 90 Physical Exam GENERAL: Obese, well-developed patient, in no apparent distress. SKIN: No rashes, ecchymoses or lesions. Cool and dry. HEAD: Atraumatic. Normocephalic. No temporal or scalp tenderness. EYES: Pupils equal round and reactive. Extraocular motions intact. No scleral icterus. No injection or drainage. ENT: Nose without bleeding, purulent drainage or septal hematoma. Throat without erythema, tonsillar hypertrophy or exudate. Uvula midline. Airway patent. NECK: Trachea midline. Supple, nontender, no meningeal signs. CARDIOVASCULAR: Heart sounds audible. RESPIRATORY: Air entry decreased bilateral bases right more than left. Right- sided chest tube in place with serosanguineous discharge. GASTROINTESTINAL: Abdomen soft, nontender, right-sided cholecystostomy tube in place with sero sanguinous discharge. MUSCULOSKELETAL: Extremities without clubbing, cyanosis, or edema. No joint tenderness, effusion, or edema noted. No calf tenderness. Negative Homans sign bilaterally. NEUROLOGICAL: Awake and alert. Nonfocal Psych cooperative IV line sites with no evidence of infection. Laboratory Laboratory Tests Test 12/31/17 10:10 White Blood Count 17.5 Red Blood Count 4.60 Hemoglobin 14.6 Hematocrit 42.6 Mean Corpuscular Volume 92.7 Mean Corpuscular Hemoglobin 31.7 Mean Corpuscular Hemoglobin Concent 34.2 Red Cell Distribution Width 14.4 Platelet Count 372 Mean Platelet Volume 7.1 Neutrophils (%) (Auto) 81.4 Lymphocytes (%) (Auto) 7.4 Monocytes (%) (Auto) 10.0 Eosinophils (%) (Auto) 1.0 Basophils (%) (Auto) 0.2 Neutrophils # (Auto) 14.3 Lymphocytes # (Auto) 1.3 Monocytes # (Auto) 1.8 Eosinophils # (Auto) 0.2 Basophils # (Auto) 0.0 CBC Comment DIFF FINAL Differential Comment Blood Urea Nitrogen 13 Creatinine 0.98 Random Glucose 158 Total Protein 7.7 Albumin 2.4 Calcium Level 9.3 Alkaline Phosphatase 310 Aspartate Amino Transf (AST/SGOT) 52 Alanine Aminotransferase (ALT/SGPT) 52 Total Bilirubin 1.3 Sodium Level 133 Potassium Level 3.0 Chloride Level 95 Carbon Dioxide Level 31.6 Anion Gap 6 Estimat Glomerular Filtration Rate 77 Date/Time Source Procedure Growth Status 12/25/17 14:22 Blood Peripheral Aerobic Blood Culture - Final NO GROWTH IN 5 DAYS Complete 12/25/17 14:22 Blood Peripheral Anaerobic Blood Culture - Final NO GROWTH IN 5 DAYS Complete Result Diagram: 12/31/17 1010 12/31/17 1010 Imaging Last Impressions Chest Ultrasound 12/30/17 0600 Signed Impressions: Service Date/Time: Saturday, December 30, 2017 11:10 - CONCLUSION: Small right-sided pleural effusion.. Alanis Cross MD Chest CT 12/30/17 0000 Signed Impressions: Service Date/Time: Sunday, December 31, 2017 00:51 - CONCLUSION: 1. Development of moderate to large right pleural effusion which appears at least partially loculated with compressive atelectasis of portions of the right lung as above. 2. Moderate coronary calcifications. 3. Abdomen reveals cholecystectomy tube with small amount of right free fluid around the liver. There are inflammatory or edematous changes around the gallbladder which contains multiple calcified gallstones. Yonatan Hassan MD Abdomen CT 12/30/17 0000 Signed Impressions: Service Date/Time: Sunday, December 31, 2017 00:51 - CONCLUSION: 1. Cholecystostomy drain present. Gallbladder wall remains thickened with some pericholecystic inflammatory or edematous changes. Numerous calcified gallstones. No biliary ductal dilatation. 2. Development of right pleural effusion and basilar atelectasis. Yonatan Hassan MD Chest X-Ray 12/28/17 0000 Signed Impressions: Service Date/Time: December 17:25 - CONCLUSION: Right basilar consolidation/effusion. Jeffry Irwin MD Percutaneous Cholangiogram 12/26/17 0000 Signed Impressions: Service Date/Time: Tuesday, December 26, 2017 14:06 - CONCLUSION: Uncomplicated percutaneous cholecystostomy as above. Jersey Bedoya MD Abdomen/Pelvis CT 12/25/17 0148 Signed Impressions: Service Date/Time: Monday, December 25, 2017 02:52 - CONCLUSION: 1. The gallbladder is abnormal. It contains stones and demonstrates wall thickening/edema. This findings can be seen with acute cholecystitis. 2. No other acute finding is identified. Jersey Jimenez MD Assessment and Plan Assessment and Plan Acute cholecystitis status post IR guided cholecystostomy tube placement Possible pneumonia with right-sided pleural effusion rule out empyema Coronary artery disease Hyperlipidemia Obesity BMI 39.7 KG per meter square Recommendations Continue Zosyn IV Continue Diflucan IV Await results of thoracentesis fluid studies RN reports that approximately 2 L of fluid was taken out by thoracentesis today. Will discuss with Dr. Medina surgery if this is an empyema as this could be related to the gallbladder process possibly. Follow cultures follow clinically Case discussed with Dr. Micaela Daugherty pt Alla Garcia MD Dec 31, 2017 16:23
[2017-12-31] MEDS: FLUCONAZOLE 100 MG PREMIX BAG 50 ML IV SCH (18:27)
[2017-12-31 18:53] LABS: TOTAL PROTEIN,PLEURAL FLUID 4.4 GM/DL
[2017-12-31 19:03] LABS: PLEURAL FLUID HISTIOCYTES 9 %; PLEURAL FLUID LYMPHS 15 %; PLEURAL FLUID MESOTHELIAL 2 %; PLEURAL FLUID MONOS 2 %; PLEURAL FLUID POLYS (SEGS) 72 %; PLEURAL FLUID RBC 21045 /MM3 (0-0); PLEURAL FLUID WBC 1810 /MM3 (0-10)
[2017-12-31] MEDS: ATORVASTATIN 40 MG TAB PO SCH (20:34)
[2018-01-01] VITALS (11 sets, daily range): BP systolic 126–176; BP diastolic 65–83; PULSE 72–98; RESP 18–23; TEMP 98.1–99.3; O2SAT 93–95
[2018-01-01] MEDS: PIPERACIL-TAZO 4.5 GM PREMIX 100 ML IV SCH ×5 (00:39→20:49)
[2018-01-01] MEDS: HYDROmorphone HCL PF 2 MG/ML VIAL IV PUSH PRN ×4 (00:51→19:42)
[2018-01-01] MEDS: METOPROLOL TARTRATE 25 MG TAB PO SCH ×5 (06:19→23:13)
--- NOTE | 2018-01-01 06:20 | RADRPT ---
EXAM DATE/TIME: 01/01/2018 05:40 [facility] COMPARISON: No previous studies available for comparison. INDICATIONS : Short of breath, evaluate right side pneumothorax and chest tube MEDICAL HISTORY : cholecystitis, pneumothorax SURGICAL HISTORY : Appendectomy. chest tube ENCOUNTER: Subsequent ACUITY: 4 - 6 days PAIN SCORE: 8/10 LOCATION: Right chest FINDINGS: There is elevation of the right hemidiaphragm, bilateral pleural effusions right greater left and rig ht lower lobe consolidation. Cardiomegaly is present. CONCLUSION: Bilateral effusions and consolidation with volume loss on the right. Jose Chilel MD on January 01, 2018 at 6:17 Board Certified Radiologist. This report was verified electronically.
--- NOTE | 2018-01-01 07:37 | RADRPT ---
EXAM DATE/TIME: 12/31/2017 14:28 [facility] COMPARISON: CHEST EXPIRATION ONLY, January 01, 2018, 5:40. INDICATIONS : History of cholecystitis status post percutaneous cholecystostomy drain placement. Patient with persi stent sepsis and new subdiaphragmatic fluid. MEDICATION(S): 1.) 2 mg hydromorphone (Dilaudid) IV 2.) 250 mcg fentanyl (Sublimaze) IV DEVICE(S): 1.) 18 gauge Hernández blunt needle FLUID: Total volume of 20 cc of clear, red fluid was removed. Fluid was sent for laboratory ordered studies. MEDICAL HISTORY : Myocardial infarction. Hypertension. SURGICAL HISTORY : Appendectomy. ENCOUNTER: Initial ACUITY: 1 day PAIN SCORE: 5/10 LOCATION: Right upper quadrant PROCEDURE: 2.) EKG and oximetry remained stable throughout the procedure. PROCEDURE : 1. CT guided aspiration of subdiaphragmatic fluid 2. Conscious sedation with continuous EKG and oximetry monitoring. The risks, benefits and alternatives to the procedure were explained and verbal and written consent w as obtained. Using automated exposure control and adjustment of the mA and/or kV according to patient size, radiation dose was kept as low as reasonably achievable to obtain optimal diagnostic quality i mages. The site was prepped in sterile fashion. Full sterile technique was used, including cap, ma sk, sterile gloves and gown and a large sterile sheet. Hand hygiene and 2% chlorhexidine and/or beta dine/alcohol prep was utilized per protocol for cutaneous antisepsis. The skin and subcutaneous tiss ues were infiltrated with local anesthetic solution. DICOM format image data is available electronic ally for review and comparison. Using CT guidance the prescribed site was localized. 18 gauge Hernández needle was advanced into the sellers bdiaphragmatic fluid. Approximately 6 cc of serosanguineous fluid was removed. Therefore, catheter wa s placed. Needle was then withdrawn. Entire sample was submitted for laboratory analysis. The patient tolerated the procedure well and there were no complications. Conscious sedation was per formed with the prescribed dosages and duration as above in the presence of an independent trained ra diology nurse to assist in the monitoring of the patient. EKG and oximetry remained stable throughou t the procedure. The patient tolerated the procedure well and there were no complications. The patient was sent to pos t anesthesia recovery in stable condition. CONCLUSION: 1. Uncomplicated aspiration of subdiaphragmatic fluid yielding serosanguineous fluid. Entire sample w as submitted for Gram stain and C&S. David Nichols MD on January 01, 2018 at 7:32 Board Certified Radiologist. This report was verified electronically.
--- NOTE | 2018-01-01 07:39 | RADRPT ---
EXAM DATE/TIME: 12/31/2017 14:28 INDICATIONS : Large pleural effusion with sepsis. MEDICATION(S): 1.) 2 mg hydromorphone (Dilaudid) IV 2.) 250 mcg fentanyl (Sublimaze) IV DEVICE(S): 1.) 10 Fr Shayla FLUID: Total volume [id number] cc of clear, red fluid was remoted. Fluid was sent for laboratory ordered studies. MEDICAL HISTORY : Myocardial infarction. Hypertension. SURGICAL HISTORY : Appendectomy. stent placement ENCOUNTER: Initial ACUITY: 1 day PAIN SCORE: 5/10 LOCATION: Right lower chest PROCEDURE: 2.) EKG and oximetry remained stable throughout the procedure. PROCEDURE : 1. CT guided chest tube placement. 2. Conscious sedation with continuous EKG and oximetry monitoring. The risks, benefits and alternatives to the procedure were explained and verbal and written consent w as obtained. The site was prepped in sterile fashion. Full sterile technique was used, including ca p, mask, sterile gloves and gown and a large sterile sheet. Hand hygiene and 2% chlorhexidine and/or betadine/alcohol prep was utilized per protocol for cutaneous antisepsis. The skin and subcutaneous tissues were infiltrated with local anesthetic solution. Using automated exposure control and adjus tment of the mA and/or kV according to patient size, radiation dose was kept as low as reasonably ach ievable to obtain optimal diagnostic quality images. DICOM format image data is available electronic ally for review and comparison. With CT guidance the chest was punctured and the prescribed catheter was placed in the lung apex. Wal l suction was applied. Post procedure images demonstrate satisfactory position of the tube. The cat heter was sutured in place and a Percu-Stay was applied. Approximately 1300 cc of minimally serosanguineous fluid was removed immediately following catheter p lacement. Large sample sent for laboratory analysis. Conscious sedation was performed with the prescribed dosages and duration as above. The patient tyrese ated the procedure well and there were no complications. EKG and oximetry remained stable throughout the procedure. The patient was sent to post anesthesia recovery in stable condition. CONCLUSION: Uncomplicated chest tube placement as above. David Nichols MD on January 01, 2018 at 7:35 Board Certified Radiologist. This report was verified electronically.
--- NOTE | 2018-01-01 08:46 | HHI.PR ---
Subjective Remarks feeling better, no abdominal pain, taking po well some minimal pain chest tube site Objective Vitals Vital Signs Date Time Temp Pulse Resp B/P (MAP) Pulse Ox O2 Delivery O2 Flow Rate FiO2 01/01/18 08:11 94 Nasal Cannula 2.00 01/01/18 05:25 98.1 92 18 157/65 (95) 94 01/01/18 00:43 144/75 (98) 01/01/18 00:29 98.3 85 18 176/83 (114) 94 01/01/18 00:00 85 12/31/17 23:35 Nasal Cannula 2.00 12/31/17 21:06 98.0 94 18 143/65 (91) 92 12/31/17 20:00 83 12/31/17 12:00 98.5 89 21 160/78 (105) 94 12/31/17 09:29 Nasal Cannula 2.00 12/31/17 09:00 95 Nasal Cannula 2.00 I/O 12/31/17 12/31/17 12/31/17 01/01/18 01/01/18 01/01/18 07:00 15:00 23:00 07:00 15:00 23:00 Intake Total 200 ml 100 ml 300 ml Output Total 15 ml 45 ml 500 ml 30 ml Balance 185 ml 55 ml -200 ml -30 ml IV Total 200 ml 100 ml 300 ml Output Urine Total 500 ml Drainage Total 15 ml 45 ml 30 ml # Voids 3 1 # Bowel Movements 2 1 Result Diagram: 12/31/17 1010 12/31/17 1010 Imaging Last Impressions Chest X-Ray 01/01/18 0000 Signed Impressions: Service Date/Time: Monday, January 01, 2018 05:40 - CONCLUSION: Bilateral effusions and consolidation with volume loss on the right. Jose Chilel MD Chest Tube Insertion 12/31/17 0000 Signed Impressions: Service Date/Time: Sunday, December 31, 2017 14:28 - CONCLUSION: Uncomplicated chest tube placement as above. David Nichols MD Abscess Drainage CT 12/31/17 0000 Signed Impressions: Service Date/Time: Sunday, December 31, 2017 14:28 - CONCLUSION: 1. Uncomplicated aspiration of subdiaphragmatic fluid yielding serosanguineous fluid. Entire sample was submitted for Gram stain and C&S. David Nichols MD Chest Ultrasound 12/30/17 0600 Signed Impressions: Service Date/Time: Saturday, December 30, 2017 11:10 - CONCLUSION: Small right-sided pleural effusion.. Alanis Cross MD Chest CT 12/30/17 0000 Signed Impressions: Service Date/Time: Sunday, December 31, 2017 00:51 - CONCLUSION: 1. Development of moderate to large right pleural effusion which appears at least partially loculated with compressive atelectasis of portions of the right lung as above. 2. Moderate coronary calcifications. 3. Abdomen reveals cholecystectomy tube with small amount of right free fluid around the liver. There are inflammatory or edematous changes around the gallbladder which contains multiple calcified gallstones. Yonatan Hassan MD Abdomen CT 12/30/17 0000 Signed Impressions: Service Date/Time: Sunday, December 31, 2017 00:51 - CONCLUSION: 1. Cholecystostomy drain present. Gallbladder wall remains thickened with some pericholecystic inflammatory or edematous changes. Numerous calcified gallstones. No biliary ductal dilatation. 2. Development of right pleural effusion and basilar atelectasis. Yonatan Hassan MD Percutaneous Cholangiogram 12/26/17 0000 Signed Impressions: Service Date/Time: Tuesday, December 26, 2017 14:06 - CONCLUSION: Uncomplicated percutaneous cholecystostomy as above. Jersey Bedoya MD Abdomen/Pelvis CT 12/25/17 0148 Signed Impressions: Service Date/Time: Monday, December 25, 2017 02:52 - CONCLUSION: 1. The gallbladder is abnormal. It contains stones and demonstrates wall thickening/edema. This findings can be seen with acute cholecystitis. 2. No other acute finding is identified. Jersey Jimenez MD Objective Remarks awake and alert,more interactive and smiling, relating stories during his working years lungs- decreased breath sounds , no rales or wheezes, chest tube in place right regular rhythm abdomen-soft, good bowel sounds- non tender - cholecystostomy tube in place, no guarding extremities no edema Procedures 12/26/17 percutaneous cholangiogram with cholecystostomy tube placement 12/31- chest tube placement right- initially drained 1300 cc on insertion 12/31- drainage of subdia[hragmatic fluid- obtained 20cc A/P Problem List: (1) Coronary artery disease ICD Code: I25.10 - Atherosclerotic heart disease of [place] coronary artery without angina pectoris (2) Hypertension ICD Code: I10 - Essential (primary) hypertension (3) Nausea & vomiting ICD Code: R11.2 - Nausea with vomiting, unspecified (4) Acute cholecystitis ICD Code: K81.0 - Acute cholecystitis Status: Acute (5) Sepsis ICD Code: A41.9 - Sepsis, unspecified organism Assessment and Plan 62 years old male Acute cholecystitis: S/P cholecystostomy tube placement ff clinically feeling better Continue IV antibiotics. ff-original plan for elective cholecystectomy in 4-6 weeks. I reconsulted them 12/30 to reconsider earlier timing of surgery has been off Effiant- Pneumonia with right pleural effusion S/P CT placement 12/31 Persistent Leukocytosis on zosyn and Diflucan. ID ff along with us ff pleural fluid studies. FF Chest tube output. Fluid amylase pending Right subdiaphragmatic fluid collection S/P I and 12/31- only 20 cc obtained Hypertension- : Increased amlodipine to 10 mg , metoprolol- 25 mg po q 8- 12/31 - continue to monitor and adjust HYpokalemia- replaced. recheck today. start KCL 20 meq po daily Coronary artery disease: BNP normal. 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 continue meds Hyperlipidemia: statin. DVT prophylaxis: SCDs, OREN arvizu.- patient up and ambulating. PT consult - now with chest tube and pleurovac- will need walker d/w Pulmo- Dr. Saucedo - Dr. Levy and family Emmy Hinojosa MD Jan 01, 2018 08:46
[2018-01-01] MEDS: DOCUSATE SODIUM 50 MG/SENNA 8.6 MG TAB PO SCH ×2 (09:07→20:48)
[2018-01-01] MEDS: SODIUM CHLORIDE 0.9% FLUSH 10 ML FLUSH IV FLUSH SCH ×2 (09:07→20:49)
[2018-01-01] MEDS: amLODIPine BESYLATE 5 MG TAB PO SCH (09:07)
[2018-01-01] MEDS: POTASSIUM CHLORIDE 20 MEQ CONTROLLED RELEASE TAB PO SCH (09:13)
--- NOTE | 2018-01-01 11:32 | HHI.PR ---
Subjective Subjective Notes He is tolerating diet. Abdominal pain improving. Labs unable to be drawn this morning. Objective Vitals/I&O Vital Signs Date Time Temp Pulse Resp B/P (MAP) Pulse Ox O2 Delivery O2 Flow Rate FiO2 01/01/18 08:11 94 Nasal Cannula 2.00 01/01/18 08:00 98.1 90 23 126/76 (93) 12/30/17 20:30 21 Labs Laboratory Tests Test 12/31/17 15:20 Pleural Fluid pH 8.0 Pleural Fluid WBC 1810 Pleural Fluid RBC 10210 Pleural Fluid Neutrophils 72 Pleural Fluid Lymphocytes 15 Pleural Fluid Monocytes 2 Pleural Fluid Histiocytes 9 Pleural Fluid Mesothelial Cells 2 Pleural Fluid Comment Pleural Fluid Total Protein 4.4 Pleural Fluid LDH 192 Pleural Fluid Glucose 107 Date/Time Source Procedure Growth Status 12/25/17 14:22 Blood Peripheral Aerobic Blood Culture - Final NO GROWTH IN 5 DAYS Complete 12/25/17 14:22 Blood Peripheral Anaerobic Blood Culture - Final NO GROWTH IN 5 DAYS Complete 12/31/17 15:20 Fluid Pleural Fluid Acid Fast Stain Pending Received 12/31/17 15:20 Fluid Pleural Fluid Mycobacterial Culture Pending Received Radiology Last Impressions Abdomen/Pelvis CT 12/25/17 0148 Signed Impressions: Service Date/Time: Monday, December 25, 2017 02:52 - CONCLUSION: 1. The gallbladder is abnormal. It contains stones and demonstrates wall thickening/edema. This findings can be seen with acute cholecystitis. 2. No other acute finding is identified. Jersey Jimenez MD Narrative Exam Obese, not in distress Abd: mild distention, nontender, rafy tube in place bloody slightly bilious drainage Nonlabored breathing- right chest tube minimal ss output A/P Assessment and Plan Morbid obesity, recently on platelet inhibitor, acute cholecystitis. His abdomen continues to improve. Now with pigtail cath right chest. S/p aspiration and culture of subdiaphragmatic fluid collection. Cultures pending. Continue cholecystostomy tube. Continue plan for cholecystectomy in 4-6 weeks. Bryant Medina MD Jan 01, 2018 11:32
--- NOTE | 2018-01-01 15:24 | RADRPT ---
EXAM DATE/TIME: 01/01/2018 14:16 [facility] COMPARISON: CT THORAX W CONTRAST, December 31, 2017, 0:51. INDICATIONS : Pleural effusions RADIATION DOSE: 19.94 CTDIvol (mGy) MEDICAL HISTORY : Cardiovascular disease. Hypertension. SURGICAL HISTORY : Appendectomy. ENCOUNTER: Initial ACUITY: 1 day PAIN SCALE: 10/10 LOCATION: chest TECHNIQUE: Volumetric scanning of the chest was performed. Using automated exposure control and adjustment of t he mA and/or kV according to patient size, radiation dose was kept as low as reasonably achievable to obtain optimal diagnostic quality images. DICOM format image data is available electronically for r eview and comparison. Follow-up recommendations for detected pulmonary nodules are based at a minimum on nodule size and pa tient risk factors according to Fleischner Society Guidelines. FINDINGS: LUNGS: Marked improvement in aeration of the right hemithorax with significantly reduced pleural effusion. T here is still a small possibly loculated component persists in with adjacent atelectatic changes. Lef t lung remains grossly clear with only a tiny left-sided effusion. PLEURAE: Small right pleural effusion persists. Small bore [place] loop thoracostomy tube enters the pleural spac e posteriorly on the right. MEDIASTINUM: The heart and great vessels demonstrate no acute abnormality. There is no mediastinal or hilar lymph adenopathy. AXILLAE: Within normal limits. No lymphadenopathy. MUSCULOSKELETAL: Within normal limits for patient age. MISCELLANEOUS: Small amount of ascites around the hepatic convexity. Multiple calcified gallstones with a cholecysto stomy tube appropriately positioned in the gallbladder lumen. CONCLUSION: 1. Marked improvement in the right-sided pleural effusion. There is still a small, possibly loculated component remaining, however. Concomitant atelectatic changes also show interval improvement. 2. Left lung remains grossly clear except for a very tiny left-sided pleural effusion. 3. Calcified gallstones. Cholecystostomy tube in place. 4. Ascites along the hepatic dome. Jeffry Irwin MD on January 01, 2018 at 15:15 Board Certified Radiologist. This report was verified electronically.
[2018-01-01 16:06] LABS: AUTOMATED NEUTROPHIL # 12.9 TH/MM3 (1.8-7.7); BASOPHIL % 0.2 % (0.0-2.0); EOSINOPHIL # 0.3 TH/MM3 (0-0.4); EOSINOPHIL % 1.7 % (0.0-4.0); HEMOGLOBIN 13.4 GM/DL (13.0-17.0); LYMPH % 7.9 % (9.0-44.0); LYMPHOCYTE # 1.3 TH/MM3 (1.0-4.8); MEAN CELL VOLUME 92.8 FL (80.0-100.0); MEAN CORPUSCULAR HGB CONC 34.5 % (32.0-36.0); MONO % 12.2 % (0.0-8.0); PLATELET COUNT 394 TH/MM3 (150-450); RED CELL DISTRIBUTION WIDTH 14.2 % (11.6-17.2); WHITE BLOOD COUNT 16.5 TH/MM3 (4.0-11.0)
[2018-01-01 16:16] LABS: BICARBONATE 31.8 MEQ/L (21.0-32.0); CALCIUM 8.7 MG/DL (8.5-10.1); CREATININE 0.95 MG/DL (0.60-1.30)
[2018-01-01] MEDS ORDERED: POTASSIUM BICARBONATE 25 MEQ EFFERVESCENT TAB PO ONE (17:00)
[2018-01-01] MEDS: FLUCONAZOLE 100 MG PREMIX BAG 50 ML IV SCH ×2 (18:26→19:41)
--- NOTE | 2018-01-01 19:07 | HHI.IDPN ---
Subjective Subjective Remarks delayed entry patient seen at ~ 4 pm Mr. Glynn is a 42-year-old male who presented to the emergency department complains of right upper quadrant abdominal pain which started day before admission. He reports that this started after he ate a hamburger. He reports nausea and vomiting associated with pain. He reports mild constipation. Denies any fever or chills. Patient was seen by surgery Dr. Medina. Interventional radiology was consulted for and a IR guided cholecystostomy tube was placed. Patient was reportedly starting to do better was close to being discharged. Due to some respiratory issues and discomfort on the right side patient underwent a chest x-ray followed by a CT which showed right-sided effusion possibly loculated. Dr. Saucedo pulmonology is on case and ordered a CT-guided thoracentesis to rule out empyema. Infectious disease is consulted for evaluation and management of sepsis, acute cholecystitis and right-sided pleural effusion rule out empyema. Night events reviewed. No fever No Rash No Diarrhea Antibiotics Zosyn IV Diflucan Lines Line sites with no evidence of infection Past Medical History Past Medical History Coronary artery disease Hyperlipidemia Hypertension History of shingles Past Surgical History Appendectomy Cardiac catheterization with stent placement Tonsillectomy/adenoidectomy Allergies: Coded Allergies: codeine (Verified Allergy, Unknown, 12/25/17) Objective . Vital Signs Date Time Temp Pulse Resp B/P (MAP) Pulse Ox O2 Delivery O2 Flow Rate FiO2 01/01/18 16:00 99.2 89 21 154/72 (99) 93 01/01/18 12:00 99.3 85 20 145/71 (95) 95 01/01/18 09:00 Nasal Cannula 2.00 01/01/18 08:11 94 Nasal Cannula 2.00 01/01/18 08:00 98.1 90 23 126/76 (93) 94 01/01/18 05:25 98.1 92 18 157/65 (95) 94 01/01/18 00:43 144/75 (98) 01/01/18 00:29 98.3 85 18 176/83 (114) 94 01/01/18 00:00 85 12/31/17 23:35 Nasal Cannula 2.00 12/31/17 21:06 98.0 94 18 143/65 (91) 92 12/31/17 20:00 83 01/01/18 01/01/1818 15:00 23:00 07:00 Intake Total 1120 ml Output Total 30 ml Balance -30 ml 1120 ml Intake Oral 1120 ml Drainage Total 30 ml # Voids 1 # Bowel Movements 1 . Laboratory Tests Test 12/31/17 10:10 01/01/18 15:30 White Blood Count 17.5 TH/MM3 16.5 TH/MM3 Red Blood Count 4.60 MIL/MM3 4.20 MIL/MM3 Hemoglobin 14.6 GM/DL 13.4 GM/DL Hematocrit 42.6 % 39.0 % Mean Corpuscular Volume 92.7 FL 92.8 FL Mean Corpuscular Hemoglobin 31.7 PG 32.0 PG Mean Corpuscular Hemoglobin Concent 34.2 % 34.5 % Red Cell Distribution Width 14.4 % 14.2 % Platelet Count 372 TH/MM3 394 TH/MM3 Mean Platelet Volume 7.1 FL 7.0 FL Neutrophils (%) (Auto) 81.4 % 78.0 % Lymphocytes (%) (Auto) 7.4 % 7.9 % Monocytes (%) (Auto) 10.0 % 12.2 % Eosinophils (%) (Auto) 1.0 % 1.7 % Basophils (%) (Auto) 0.2 % 0.2 % Neutrophils # (Auto) 14.3 TH/MM3 12.9 TH/MM3 Lymphocytes # (Auto) 1.3 TH/MM3 1.3 TH/MM3 Monocytes # (Auto) 1.8 TH/MM3 2.0 TH/MM3 Eosinophils # (Auto) 0.2 TH/MM3 0.3 TH/MM3 Basophils # (Auto) 0.0 TH/MM3 0.0 TH/MM3 CBC Comment DIFF FINAL DIFF FINAL Differential Comment Laboratory Tests Test 12/31/17 10:10 01/01/18 15:30 Blood Urea Nitrogen 13 MG/DL 13 MG/DL Creatinine 0.98 MG/DL 0.95 MG/DL Random Glucose 158 MG/DL 107 MG/DL Total Protein 7.7 GM/DL Albumin 2.4 GM/DL Calcium Level 9.3 MG/DL 8.7 MG/DL Alkaline Phosphatase 310 U/L Aspartate Amino Transf (AST/SGOT) 52 U/L Alanine Aminotransferase (ALT/SGPT) 52 U/L Total Bilirubin 1.3 MG/DL Sodium Level 133 MEQ/L 136 MEQ/L Potassium Level 3.0 MEQ/L 3.2 MEQ/L Chloride Level 95 MEQ/L 98 MEQ/L Carbon Dioxide Level 31.6 MEQ/L 31.8 MEQ/L Anion Gap 6 MEQ/L 6 MEQ/L Estimat Glomerular Filtration Rate 77 ML/MIN 80 ML/MIN Microbiology Date/Time Source Procedure Growth Status 12/31/17 15:20 Fluid Pleural Fluid Acid Fast Stain Pending Received 12/31/17 15:20 Fluid Pleural Fluid Mycobacterial Culture Pending Received 12/31/17 15:20 Fluid Pleural Fluid Fungal Smear - Final NO FUNGAL ELEMENTS SEEN. Resulted 12/31/17 15:20 Fluid Pleural Fluid Fungal Culture Pending Resulted 12/31/17 15:20 Fluid Pleural Fluid Gram Stain - Final Resulted 12/31/17 15:20 Fluid Pleural Fluid Body Fluid Culture - Preliminary NO GROWTH IN 24 HOURS. Resulted 12/31/17 15:15 Fluid Other Acid Fast Stain Pending Received 12/31/17 15:15 Fluid Other Mycobacterial Culture Pending Received Imaging Last Impressions Chest X-Ray 01/01/18 0000 Signed Impressions: Service Date/Time: Monday, January 01, 2018 05:40 - CONCLUSION: Bilateral effusions and consolidation with volume loss on the right. Jose Chilel MD Chest CT 01/01/18 0000 Signed Impressions: Service Date/Time: Monday, January 01, 2018 14:16 - CONCLUSION: 1. Marked improvement in the right-sided pleural effusion. There is still a small, possibly loculated component remaining, however. Concomitant atelectatic changes also show interval improvement. 2. Left lung remains grossly clear except for a very tiny left-sided pleural effusion. 3. Calcified gallstones. Cholecystostomy tube in place. 4. Ascites along the hepatic dome. Jeffry Irwin MD Chest Tube Insertion 12/31/17 0000 Signed Impressions: Service Date/Time: Sunday, December 31, 2017 14:28 - CONCLUSION: Uncomplicated chest tube placement as above. David Nichols MD Abscess Drainage CT 12/31/17 0000 Signed Impressions: Service Date/Time: Sunday, December 31, 2017 14:28 - CONCLUSION: 1. Uncomplicated aspiration of subdiaphragmatic fluid yielding serosanguineous fluid. Entire sample was submitted for Gram stain and C&S. David Nichols MD Chest Ultrasound 12/30/17 0600 Signed Impressions: Service Date/Time: Saturday, December 30, 2017 11:10 - CONCLUSION: Small right-sided pleural effusion.. Alanis Cross MD Abdomen CT 12/30/17 0000 Signed Impressions: Service Date/Time: Sunday, December 31, 2017 00:51 - CONCLUSION: 1. Cholecystostomy drain present. Gallbladder wall remains thickened with some pericholecystic inflammatory or edematous changes. Numerous calcified gallstones. No biliary ductal dilatation. 2. Development of right pleural effusion and basilar atelectasis. Yonatan Hassan MD Percutaneous Cholangiogram 12/26/17 0000 Signed Impressions: Service Date/Time: Tuesday, December 26, 2017 14:06 - CONCLUSION: Uncomplicated percutaneous cholecystostomy as above. Jersey Bedoya MD Abdomen/Pelvis CT 12/25/17 0148 Signed Impressions: Service Date/Time: Monday, December 25, 2017 02:52 - CONCLUSION: 1. The gallbladder is abnormal. It contains stones and demonstrates wall thickening/edema. This findings can be seen with acute cholecystitis. 2. No other acute finding is identified. Jersey Jimenez MD Physical Exam GENERAL: Obese, well-developed patient, in no apparent distress. SKIN: No rashes, ecchymoses or lesions. Cool and dry. HEAD: Atraumatic. Normocephalic. No temporal or scalp tenderness. EYES: Pupils equal round and reactive. Extraocular motions intact. No scleral icterus. No injection or drainage. ENT: Nose without bleeding, purulent drainage or septal hematoma. Throat without erythema, tonsillar hypertrophy or exudate. Uvula midline. Airway patent. NECK: Trachea midline. Supple, nontender, no meningeal signs. CARDIOVASCULAR: Heart sounds audible. RESPIRATORY: Air entry decreased bilateral bases right more than left. Right- sided chest tube in place with serosanguineous discharge. GASTROINTESTINAL: Abdomen soft, nontender, right-sided cholecystostomy tube in place with sero sanguinous discharge. MUSCULOSKELETAL: Extremities without clubbing, cyanosis, or edema. No joint tenderness, effusion, or edema noted. No calf tenderness. Negative Homans sign bilaterally. NEUROLOGICAL: Awake and alert. Nonfocal Psych cooperative IV line sites with no evidence of infection. Assessment & Plan Remarks Acute cholecystitis status post IR guided cholecystostomy tube placement Possible pneumonia with right-sided pleural effusion rule out empyema Coronary artery disease Hyperlipidemia Obesity BMI 39.7 KG per meter square Recommendations Continue Zosyn IV Continue Diflucan IV Dr. Hinojosa discussed with Dr. Medina abdominal fluid does not appear to be in connection with her pleural fluid. Await results of pleural fluid amylase. Follow cultures follow clinically dw pt and in the room. Alla Garcia MD Jan 01, 2018 19:06
--- NOTE | 2018-01-01 19:38 | HHI.PR ---
Subjective Remarks 62 YOWM with Lung infilt, pl eff Weekend events noted Had CT guided TC,1200 cc fluid removed Had Cholycystosomy tube placed Feels much better SOB improved Objective Vital Signs Vital Signs Date Time Temp Pulse Resp B/P (MAP) Pulse Ox O2 Delivery O2 Flow Rate FiO2 01/01/18 16:00 99.2 89 21 154/72 (99) 93 01/01/18 12:00 99.3 85 20 145/71 (95) 95 01/01/18 09:00 Nasal Cannula 2.00 01/01/18 08:11 94 Nasal Cannula 2.00 01/01/18 08:00 98.1 90 23 126/76 (93) 94 01/01/18 05:25 98.1 92 18 157/65 (95) 94 01/01/18 00:43 144/75 (98) 01/01/18 00:29 98.3 85 18 176/83 (114) 94 01/01/18 00:00 85 12/31/17 23:35 Nasal Cannula 2.00 12/31/17 21:06 98.0 94 18 143/65 (91) 92 12/31/17 20:00 83 I/O 12/31/17 12/31/17 12/31/17 01/01/18 01/01/18 01/01/18 07:00 15:00 23:00 07:00 15:00 23:00 Intake Total 200 ml 100 ml 300 ml 1120 ml Output Total 15 ml 45 ml 500 ml 30 ml Balance 185 ml 55 ml -200 ml -30 ml 1120 ml Intake Oral 1120 ml IV Total 200 ml 100 ml 300 ml Output Urine Total 500 ml Drainage Total 15 ml 45 ml 30 ml # Voids 3 1 1 # Bowel Movements 2 1 1 Result Diagram: 01/01/18 1530 01/01/18 1530 Objective Remarks GENERAL: WBWN WM, NAD SKIN: Warm and dry. HEAD: Normocephalic. EYES: No scleral icterus. No injection or drainage. NECK: Supple, trachea midline. No JVD or lymphadenopathy. CARDIOVASCULAR: Regular rate and rhythm without murmurs, gallops, or rubs. RESPIRATORY: Breath sounds equal bilaterally. No accessory muscle use. TRt Chest tube draining GASTROINTESTINAL: Abdomen soft, non-tender, nondistended. Cholycystostomy tube MUSCULOSKELETAL: No cyanosis, or edema. BACK: Nontender without obvious deformity. No CVA tenderness. A/P Assessment and Plan Righ Pleural effusion, s/p chest tube placement S/P Cholycystosomy tube placement Leucocytosis PLAN: DW Pt DW Dr. Alla Garcia Cont Abx per ID Chest tube to suction Dev Ramirez MD Jan 01, 2018 19:38
[2018-01-01] MEDS: ATORVASTATIN 40 MG TAB PO SCH (20:48)
[2018-01-02 00:17] VITALS: BP 149/72; PULSE 81; PULSE 87; RESP 20; TEMP 97.7; O2SAT 95
[2018-01-02] MEDS: HYDROmorphone HCL PF 2 MG/ML VIAL IV PUSH PRN ×2 (01:12→05:26)
[2018-01-02] MEDS: PIPERACIL-TAZO 4.5 GM PREMIX 100 ML IV SCH ×4 (04:53→21:20)
[2018-01-02 05:08] VITALS: BP 145/74; PULSE 79; RESP 20; TEMP 97.8; O2SAT 94
[2018-01-02] MEDS: METOPROLOL TARTRATE 25 MG TAB PO SCH ×5 (05:26→21:20)
[2018-01-02 08:12] LABS: BASOPHIL # 0.1 TH/MM3 (0-0.2); BASOPHIL % 0.4 % (0.0-2.0); EOSINOPHIL # 0.3 TH/MM3 (0-0.4); EOSINOPHIL % 1.9 % (0.0-4.0); HEMATOCRIT 39.9 % (39.0-51.0); HEMOGLOBIN 13.9 GM/DL (13.0-17.0); LYMPH % 8.4 % (9.0-44.0); LYMPHOCYTE # 1.5 TH/MM3 (1.0-4.8); MEAN CELL VOLUME 92.9 FL (80.0-100.0); MEAN CORPUSCULAR HEMOGLOBIN 32.3 PG (27.0-34.0); MEAN CORPUSCULAR HGB CONC 34.8 % (32.0-36.0); MEAN PLATELET VOLUME 6.9 FL (7.0-11.0); MONO % 9.7 % (0.0-8.0); MONOCYTE # 1.7 TH/MM3 (0-0.9); NEUT % 79.6 % (16.0-70.0); PLATELET COUNT 394 TH/MM3 (150-450); RED BLOOD COUNT 4.29 MIL/MM3 (4.50-5.90); RED CELL DISTRIBUTION WIDTH 14.2 % (11.6-17.2); WHITE BLOOD COUNT 17.6 TH/MM3 (4.0-11.0)
[2018-01-02 08:20] VITALS: BP 150/76; PULSE 76; RESP 20; TEMP 98.1; O2SAT 95
[2018-01-02 08:31] LABS: BICARBONATE 29.4 MEQ/L (21.0-32.0); CALCIUM 8.4 MG/DL (8.5-10.1); CREATININE 0.82 MG/DL (0.60-1.30)
[2018-01-02] MEDS: amLODIPine BESYLATE 5 MG TAB PO SCH (09:19)
[2018-01-02] MEDS: DOCUSATE SODIUM 50 MG/SENNA 8.6 MG TAB PO SCH ×2 (09:20→21:20)
[2018-01-02] MEDS: POTASSIUM CHLORIDE 20 MEQ CONTROLLED RELEASE TAB PO SCH (09:20)
[2018-01-02] MEDS: SODIUM CHLORIDE 0.9% FLUSH 10 ML FLUSH IV FLUSH SCH ×2 (09:20→21:21)
--- NOTE | 2018-01-02 11:27 | HHI.PR ---
Subjective Subjective Notes He has no complaints. Tolerating diet well. Objective Vitals/I&O Vital Signs Date Time Temp Pulse Resp B/P (MAP) Pulse Ox O2 Delivery O2 Flow Rate FiO2 01/02/18 08:20 98.1 76 20 150/76 (100) 95 01/01/18 19:30 Nasal Cannula 2.00 21 Labs Laboratory Tests Test 01/01/18 15:30 01/02/18 07:30 White Blood Count 16.5 17.6 Red Blood Count 4.20 4.29 Hemoglobin 13.4 13.9 Hematocrit 39.0 39.9 Mean Corpuscular Volume 92.8 92.9 Mean Corpuscular Hemoglobin 32.0 32.3 Mean Corpuscular Hemoglobin Concent 34.5 34.8 Red Cell Distribution Width 14.2 14.2 Platelet Count 394 394 Mean Platelet Volume 7.0 6.9 Neutrophils (%) (Auto) 78.0 79.6 Lymphocytes (%) (Auto) 7.9 8.4 Monocytes (%) (Auto) 12.2 9.7 Eosinophils (%) (Auto) 1.7 1.9 Basophils (%) (Auto) 0.2 0.4 Neutrophils # (Auto) 12.9 14.0 Lymphocytes # (Auto) 1.3 1.5 Monocytes # (Auto) 2.0 1.7 Eosinophils # (Auto) 0.3 0.3 Basophils # (Auto) 0.0 0.1 CBC Comment DIFF FINAL DIFF FINAL Differential Comment Blood Urea Nitrogen 13 12 Creatinine 0.95 0.82 Random Glucose 107 103 Calcium Level 8.7 8.4 Sodium Level 136 137 Potassium Level 3.2 3.8 Chloride Level 98 102 Carbon Dioxide Level 31.8 29.4 Anion Gap 6 6 Estimat Glomerular Filtration Rate 80 95 Date/Time Source Procedure Growth Status 12/25/17 14:22 Blood Peripheral Aerobic Blood Culture - Final NO GROWTH IN 5 DAYS Complete 12/25/17 14:22 Blood Peripheral Anaerobic Blood Culture - Final NO GROWTH IN 5 DAYS Complete 12/31/17 15:20 Fluid Pleural Fluid Acid Fast Stain Pending Received 12/31/17 15:20 Fluid Pleural Fluid Mycobacterial Culture Pending Received Radiology Last Impressions Abdomen/Pelvis CT 12/25/17 0148 Signed Impressions: Service Date/Time: Monday, December 25, 2017 02:52 - CONCLUSION: 1. The gallbladder is abnormal. It contains stones and demonstrates wall thickening/edema. This findings can be seen with acute cholecystitis. 2. No other acute finding is identified. Jersey Jimenez MD Narrative Exam Obese, not in distress Abd: mild distention, nontender, rafy tube in place bloody slightly bilious drainage Nonlabored breathing- right chest tube minimal ss output A/P Assessment and Plan Morbid obesity, recently on platelet inhibitor, acute cholecystitis. Doing much better. D/w Dr. Baker he will do cholangiogram via rafy tube and clamp tube if cystic duct is patent. Chest tube also with minimal output and appears to be ready for removal. Bryant Medina MD Jan 02, 2018 11:26
[2018-01-02 12:38] VITALS: BP 156/88; PULSE 78; RESP 20; TEMP 98.7; O2SAT 96
[2018-01-02 13:46] LABS: AMYLASE BODY FLUID 24 U/L; AMYLASE BODY FLUID TYPE PLEURAL
[2018-01-02] MEDS ORDERED: IOHEXOL 350 MG/ML 50 ML BTL (for RAD DIAG) OTHER ONE (14:17)
--- NOTE | 2018-01-02 14:18 | HHI.PR ---
Subjective Remarks seen 4 pm chest tube was removed today good po no abdominal pain, nausea or vomiting comfortable not short of breath Objective Vitals Vital Signs Date Time Temp Pulse Resp B/P (MAP) Pulse Ox O2 Delivery O2 Flow Rate FiO2 01/02/18 12:52 Nasal Cannula 2.00 01/02/18 12:38 98.7 78 20 156/88 (110) 96 01/02/18 08:20 98.1 76 20 150/76 (100) 95 01/02/18 05:08 97.8 79 20 145/74 (97) 94 01/02/18 00:17 87 01/02/18 00:17 97.7 81 20 149/72 (97) 95 01/01/18 20:50 72 01/01/18 20:20 98 01/01/18 20:16 99.1 89 19 143/73 (96) 94 01/01/18 19:30 Nasal Cannula 2.00 21 01/01/18 16:00 99.2 89 21 154/72 (99) 93 I/O 01/01/18 01/01/18 01/01/18 01/02/18 01/02/18 01/02/18 07:00 15:00 23:00 07:00 15:00 23:00 Intake Total 300 ml 1270 ml Output Total 500 ml 30 ml 400 ml 940 ml Balance -200 ml -30 ml 870 ml -940 ml Intake Oral 1120 ml IV Total 300 ml 150 ml Output Urine Total 500 ml 400 ml 900 ml Drainage Total 30 ml 0 ml 40 ml # Voids 1 1 1 # Bowel Movements 1 1 Result Diagram: 01/02/1830 01/02/1830 Imaging Last Impressions Cholangiogram 01/02/18 0000 Signed Impressions: Service Date/Time: Tuesday, January 02, 2018 13:48 - CONCLUSION: 1. Large gallstones in the gallbladder. 2. The intrahepatic ducts and common bile duct are patent. German Baker MD Chest X-Ray 01/01/18 0000 Signed Impressions: Service Date/Time: Monday, January 01, 2018 05:40 - CONCLUSION: Bilateral effusions and consolidation with volume loss on the right. Jose Chilel MD Chest CT 01/01/18 0000 Signed Impressions: Service Date/Time: Monday, January 01, 2018 14:16 - CONCLUSION: 1. Marked improvement in the right-sided pleural effusion. There is still a small, possibly loculated component remaining, however. Concomitant atelectatic changes also show interval improvement. 2. Left lung remains grossly clear except for a very tiny left-sided pleural effusion. 3. Calcified gallstones. Cholecystostomy tube in place. 4. Ascites along the hepatic dome. Jeffry Irwin MD Chest Tube Insertion 12/31/17 0000 Signed Impressions: Service Date/Time: Sunday, December 31, 2017 14:28 - CONCLUSION: Uncomplicated chest tube placement as above. David Nichols MD Abscess Drainage CT 12/31/17 0000 Signed Impressions: Service Date/Time: Sunday, December 31, 2017 14:28 - CONCLUSION: 1. Uncomplicated aspiration of subdiaphragmatic fluid yielding serosanguineous fluid. Entire sample was submitted for Gram stain and C&S. David Nichols MD Chest Ultrasound 12/30/17 0600 Signed Impressions: Service Date/Time: Saturday, December 30, 2017 11:10 - CONCLUSION: Small right-sided pleural effusion.. Alanis Cross MD Abdomen CT 12/30/17 0000 Signed Impressions: Service Date/Time: Sunday, December 31, 2017 00:51 - CONCLUSION: 1. Cholecystostomy drain present. Gallbladder wall remains thickened with some pericholecystic inflammatory or edematous changes. Numerous calcified gallstones. No biliary ductal dilatation. 2. Development of right pleural effusion and basilar atelectasis. Ynoatan Hassan MD Percutaneous Cholangiogram 12/26/17 0000 Signed Impressions: Service Date/Time: Tuesday, December 26, 2017 14:06 - CONCLUSION: Uncomplicated percutaneous cholecystostomy as above. Jersey Bedoya MD Abdomen/Pelvis CT 12/25/17 0148 Signed Impressions: Service Date/Time: Monday, December 25, 2017 02:52 - CONCLUSION: 1. The gallbladder is abnormal. It contains stones and demonstrates wall thickening/edema. This findings can be seen with acute cholecystitis. 2. No other acute finding is identified. Jersey Jimenez MD Objective Remarks awake and alert,more interactive and smiling, relating stories during his working years lungs- decreased breath sounds , no rales or wheezes regular rhythm abdomen-soft, good bowel sounds- non tender - cholecystostomy tube in place, no guarding extremities no edema Procedures 12/26/17 percutaneous cholangiogram with cholecystostomy tube placement 12/31- chest tube placement right- initially drained 1300 cc on insertion 12/31- drainage of subdia[hragmatic fluid- obtained 20cc A/P Problem List: (1) Coronary artery disease ICD Code: I25.10 - Atherosclerotic heart disease of [place] coronary artery without angina pectoris (2) Hypertension ICD Code: I10 - Essential (primary) hypertension (3) Nausea & vomiting ICD Code: R11.2 - Nausea with vomiting, unspecified (4) Acute cholecystitis ICD Code: K81.0 - Acute cholecystitis Status: Acute (5) Sepsis ICD Code: A41.9 - Sepsis, unspecified organism Assessment and Plan 62 years old male Acute cholecystitis: S/P cholecystostomy tube placement Multiple Gallstones GS ff. clinically feeling better Continue on IV zosyn and IV Diflucan. ID ff GS ff-original plan for elective cholecystectomy in 4-6 weeks. for cholangiogram study- results pending has been off Effiant- Pneumonia with right pleural effusion S/P CT placement 12/[address] removed today Persistent Leukocytosis on zosyn and Diflucan. ID ff along with us Pulmonary/IR ff- - CT management- ff up CXR Right subdiaphragmatic fluid collection S/P I and 12/31- only 20 cc obtained HYpokalemia- improved. KCL 20 meq po daily Coronary artery disease: Hypertension BNP normal. 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 continue meds- Amlodipine 10 mg daily. Metoprolol 25 mg po q8. MOnitor and adjust Hyperlipidemia: statin. DVT prophylaxis: SCDs, OREN arvizu.- patient up and ambulating. PT daily Emmy Hinojosa MD Jan 02, 2018 14:18
--- NOTE | 2018-01-02 14:39 | PD.RAD ---
Post Procedure Progress Note Pre Procedure Diagnosis: (1) cholecystostomy tube (2) Acute cholecystitis Post Procedure Diagnosis: (1) Acute cholecystitis (2) cholecystostomy tube Procedure Date: Jan 02, 2018 Supervising Radiologist: German Baker Estimated blood loss: None Plan of Activity Patient to Unit: Other Patient Condition: Fair Additional Comments: Cholangiogram completed. Multiple large gallstones evident in gall bladder. Cystic duct patent. Intrahepatic ducts and cbd normal no stone seen. CBD is patent. Chest tube will be removed See PACS Report for procedural detail/treatment German Baker MD Jan 02, 2018 14:39
--- NOTE | 2018-01-02 14:56 | RADRPT ---
EXAM DATE/TIME: 01/02/2018 13:48 [facility] COMPARISON: CHOLECYSTOSTOMY, PERCUTANEOUS, December 26, 2017, 14:06. INDICATIONS : Patient with a history of cholecystitis MEDICAL HISTORY : Coronary artery disease Hyperlipidemia HTN Gallstones SURGICAL HISTORY : Appendectomy Cardiac cath ENCOUNTER: Initial ACUITY: 1 week PAIN SCORE: 3/10 LOCATION: Right flank FLUORO TIME: 3.3 minutes IMAGE SERIES: 7 CONTRAST: 20 cc Omnipaque (iohexol) 350 PROCEDURE : 1. cholangiogram via cholecystostomy tube The patient's cholecystostomy tube was accessed using sterile technique. Approximately 10 cc of contr ast and 10 cc of sterile saline was administered through the tube. Results: There are large gallstones filling the gallbladder. The cystic duct is patent. The intrahepatic ducts are normal in caliber. The proper hepatic duct is patent. The common bile duct is patent. No stones are seen. CONCLUSION: 1. Large gallstones in the gallbladder. 2. The intrahepatic ducts and common bile duct are patent. German Baker MD on January 02, 2018 at 14:52 Board Certified Radiologist. This report was verified electronically.
--- NOTE | 2018-01-02 16:06 | RADRPT ---
EXAM DATE/TIME: 01/02/2018 15:10 [facility] COMPARISON: CHEST EXPIRATION ONLY, January 01, 2018, 5:40. INDICATIONS : Post chest tube removal. MEDICAL HISTORY : Cardiovascular disease. SURGICAL HISTORY : Appendectomy. ENCOUNTER: Subsequent ACUITY: 1 week PAIN SCORE: 0/10 LOCATION: Bilateral chest FINDINGS: There is been interval removal of a right-sided chest tube. No pneumothorax is seen. There are consol idative changes at the right lung base. There is minimal fluid at the left lung base. The heart is mi ldly enlarged. CONCLUSION: 1. No pneumothorax identified following chest tube removal on the right. German Baker MD on January 02, 2018 at 16:03 Board Certified Radiologist. This report was verified electronically.
--- NOTE | 2018-01-02 19:14 | HHI.PR ---
Subjective Remarks 62 YOWM with Lung infilt, pl eff Weekend events noted Had CT guided TC,1200 cc fluid removed Feels much better SOB improved Had cholangiogram doen Chest tube removed Objective Vital Signs Vital Signs Date Time Temp Pulse Resp B/P (MAP) Pulse Ox O2 Delivery O2 Flow Rate FiO2 01/02/18 12:52 Nasal Cannula 2.00 01/02/18 12:38 98.7 78 20 156/88 (110) 96 01/02/18 08:20 98.1 76 20 150/76 (100) 95 01/02/18 05:08 97.8 79 20 145/74 (97) 94 01/02/18 00:17 87 01/02/18 00:17 97.7 81 20 149/72 (97) 95 01/01/18 20:50 72 01/01/18 20:20 98 01/01/18 20:16 99.1 89 19 143/73 (96) 94 01/01/18 19:30 Nasal Cannula 2.00 21 I/O 01/01/18 01/01/18 01/01/18 01/02/18 01/02/18 01/02/18 07:00 15:00 23:00 07:00 15:00 23:00 Intake Total 300 ml 1270 ml 960 ml Output Total 500 ml 30 ml 400 ml 940 ml Balance -200 ml -30 ml 870 ml -940 ml 960 ml Intake Oral 1120 ml 960 ml IV Total 300 ml 150 ml Output Urine Total 500 ml 400 ml 900 ml Drainage Total 30 ml 0 ml 40 ml # Voids 1 1 1 # Bowel Movements 1 1 1 Result Diagram: 01/02/1872901/02/18 0730 Objective Remarks GENERAL: WBWN WM, NAD SKIN: Warm and dry. HEAD: Normocephalic. EYES: No scleral icterus. No injection or drainage. NECK: Supple, trachea midline. No JVD or lymphadenopathy. CARDIOVASCULAR: Regular rate and rhythm without murmurs, gallops, or rubs. RESPIRATORY: Breath sounds equal bilaterally. No accessory muscle use. GASTROINTESTINAL: Abdomen soft, non-tender, nondistended. Cholycystostomy tube MUSCULOSKELETAL: No cyanosis, or edema. BACK: Nontender without obvious deformity. No CVA tenderness. A/P Assessment and Plan Righ Pleural effusion, s/p chest tube placement S/P Cholycystosomy tube placement Leucocytosis PLAN: DW Pt DW Dr. Alla Garcia Cont Abx per ID Stable on Dev Munoz MD Jan 02, 2018 19:14
[2018-01-02 20:00] VITALS: BP 171/85; PULSE 86; RESP 18; TEMP 100.1; O2SAT 93
[2018-01-02 20:09] VITALS: PULSE 90
[2018-01-02] MEDS: ATORVASTATIN 40 MG TAB PO SCH (21:20)
[2018-01-02] MEDS: oxyCODONE/ACETAMINOPHEN 5 MG/325 MG TAB PO PRN (21:27)
[2018-01-03] VITALS: BP 144/77; PULSE 79; RESP 18; TEMP 97.9; O2SAT 93
[2018-01-03 04:00] VITALS: BP 143/77; PULSE 77; RESP 18; TEMP 97.4; O2SAT 93
[2018-01-03] MEDS: PIPERACIL-TAZO 4.5 GM PREMIX 100 ML IV SCH ×2 (05:04→10:33)
[2018-01-03] MEDS: METOPROLOL TARTRATE 25 MG TAB PO SCH ×2 (05:05→08:06)
[2018-01-03 07:56] VITALS: BP 158/75; PULSE 80; RESP 22; TEMP 98.4; O2SAT 96
[2018-01-03] MEDS: POTASSIUM CHLORIDE 20 MEQ CONTROLLED RELEASE TAB PO SCH (08:06)
[2018-01-03] MEDS: amLODIPine BESYLATE 5 MG TAB PO SCH (08:06)
[2018-01-03] MEDS: SODIUM CHLORIDE 0.9% FLUSH 10 ML FLUSH IV FLUSH SCH (08:07)
[2018-01-03] MEDS: DOCUSATE SODIUM 50 MG/SENNA 8.6 MG TAB PO SCH (08:07)
--- NOTE | 2018-01-03 11:24 | HHI.PR ---
Subjective Subjective Notes No complaints. Chest tube removed. Cholangiogram showed patent cystic duct and no filling defects in common duct. Objective Vitals/I&O Vital Signs Date Time Temp Pulse Resp B/P (MAP) Pulse Ox O2 Delivery O2 Flow Rate FiO2 01/03/18 07:56 98.4 80 22 158/75 (102) 96 01/02/18 19:55 Nasal Cannula 2.00 21 Labs Date/Time Source Procedure Growth Status 12/25/17 14:22 Blood Peripheral Aerobic Blood Culture - Final NO GROWTH IN 5 DAYS Complete 12/25/17 14:22 Blood Peripheral Anaerobic Blood Culture - Final NO GROWTH IN 5 DAYS Complete 12/31/17 15:20 Fluid Pleural Fluid Acid Fast Stain - Final NO ACID FAST BACILLI SEEN Resulted 12/31/17 15:20 Fluid Pleural Fluid Mycobacterial Culture Pending Resulted Radiology Last Impressions Abdomen/Pelvis CT 12/25/17 0148 Signed Impressions: Service Date/Time: Monday, December 25, 2017 02:52 - CONCLUSION: 1. The gallbladder is abnormal. It contains stones and demonstrates wall thickening/edema. This findings can be seen with acute cholecystitis. 2. No other acute finding is identified. Jersey Jimenez MD Narrative Exam Obese, not in distress Abd: mild distention, nontender, rafy tube in place bloody slightly bilious drainage A/P Assessment and Plan Morbid obesity, recently on platelet inhibitor, acute cholecystitis. Cholangiogram shows patent cystic duct. Will ask rads nurse to clamp tube. F/u with me in 1-2 weeks, please get cbc/cmp prior. AdamBryant MD Jan 03, 2018 11:24
[2018-01-03 11:50] VITALS: O2SAT 96
[2018-01-03 11:51] VITALS: BP 143/71; PULSE 82; RESP 20; TEMP 98.6; O2SAT 93
[2018-01-03] MEDS ORDERED: AMLO2.5T PO (13:47)
[2018-01-03] MEDS ORDERED: NORC5TAB PO (13:47)
--- NOTE | 2018-01-03 13:48 | HHI.DS ---
Discharge Summary Admission Date Dec 25, 2017 at 03:50 Discharge Date: Jan 03, 2018 Admitting Diagnosis acute cholecystitis (1) Coronary artery disease ICD Code: I25.10 - Atherosclerotic heart disease of [place] coronary artery without angina pectoris (2) Hypertension ICD Code: I10 - Essential (primary) hypertension (3) Nausea & vomiting ICD Code: R11.2 - Nausea with vomiting, unspecified (4) Acute cholecystitis ICD Code: K81.0 - Acute cholecystitis Status: Acute (5) Sepsis ICD Code: A41.9 - Sepsis, unspecified organism Procedures 12/26/17 percutaneous cholangiogram with cholecystostomy tube placement 12/31- chest tube placement right- initially drained 1300 cc on insertion 12/31- drainage of subdia[hragmatic fluid- obtained 20cc Brief History - From Admission The patient is a 62-year-old male who presented to the emergency department with complaint of right upper quadrant abdominal pain that started yesterday after eating a hamburger. He reports nausea and vomiting. Pain is 10/10. Reports mild constipation. He has had this pain intermittently, but it worsened significantly yesterday. CBC/BMP: 01/02/18 0730 01/02/18 0730 Significant Findings Laboratory Tests Test 12/31/17 15:20 01/01/18 15:30 01/02/18 07:30 Pleural Fluid WBC 1810 /MM3 (0-10) Pleural Fluid RBC 69670 /MM3 (0-0) White Blood Count 16.5 TH/MM3 (4.0-11.0) 17.6 TH/MM3 (4.0-11.0) Red Blood Count 4.20 MIL/MM3 (4.50-5.90) 4.29 MIL/MM3 (4.50-5.90) Neutrophils (%) (Auto) 78.0 % (16.0-70.0) 79.6 % (16.0-70.0) Lymphocytes (%) (Auto) 7.9 % (9.0-44.0) 8.4 % (9.0-44.0) Monocytes (%) (Auto) 12.2 % (0.0-8.0) 9.7 % (0.0-8.0) Neutrophils # (Auto) 12.9 TH/MM3 (1.8-7.7) 14.0 TH/MM3 (1.8-7.7) Monocytes # (Auto) 2.0 TH/MM3 (0-0.9) 1.7 TH/MM3 (0-0.9) Random Glucose 107 MG/DL (74-106) Potassium Level 3.2 MEQ/L (3.5-5.1) Estimat Glomerular Filtration Rate 80 ML/MIN (>89) Mean Platelet Volume 6.9 FL (7.0-11.0) Calcium Level 8.4 MG/DL (8.5-10.1) Imaging Last Impressions Cholangiogram 01/02/18 0000 Signed Impressions: Service Date/Time: Tuesday, January 02, 2018 13:48 - CONCLUSION: 1. Large gallstones in the gallbladder. 2. The intrahepatic ducts and common bile duct are patent. German Baker MD Chest X-Ray 01/02/18 0000 Signed Impressions: Service Date/Time: Tuesday, January 02, 2018 15:10 - CONCLUSION: 1. No pneumothorax identified following chest tube removal on the right. German Baker MD Chest CT 01/01/18 0000 Signed Impressions: Service Date/Time: Monday, January 01, 2018 14:16 - CONCLUSION: 1. Marked improvement in the right-sided pleural effusion. There is still a small, possibly loculated component remaining, however. Concomitant atelectatic changes also show interval improvement. 2. Left lung remains grossly clear except for a very tiny left-sided pleural effusion. 3. Calcified gallstones. Cholecystostomy tube in place. 4. Ascites along the hepatic dome. Jeffry Irwin MD Chest Tube Insertion 12/31/17 0000 Signed Impressions: Service Date/Time: Sunday, December 31, 2017 14:28 - CONCLUSION: Uncomplicated chest tube placement as above. David Nichols MD Abscess Drainage CT 12/31/17 0000 Signed Impressions: Service Date/Time: Sunday, December 31, 2017 14:28 - CONCLUSION: 1. Uncomplicated aspiration of subdiaphragmatic fluid yielding serosanguineous fluid. Entire sample was submitted for Gram stain and C&S. David Nichols MD Chest Ultrasound 12/30/17 0600 Signed Impressions: Service Date/Time: Saturday, December 30, 2017 11:10 - CONCLUSION: Small right-sided pleural effusion.. Alanis Cross MD Abdomen CT 12/30/17 0000 Signed Impressions: Service Date/Time: Sunday, December 31, 2017 00:51 - CONCLUSION: 1. Cholecystostomy drain present. Gallbladder wall remains thickened with some pericholecystic inflammatory or edematous changes. Numerous calcified gallstones. No biliary ductal dilatation. 2. Development of right pleural effusion and basilar atelectasis. Yonatan Hassan MD Percutaneous Cholangiogram 12/26/17 0000 Signed Impressions: Service Date/Time: Tuesday, December 26, 2017 14:06 - CONCLUSION: Uncomplicated percutaneous cholecystostomy as above. Jersey Bedoya MD Abdomen/Pelvis CT 12/25/17 0148 Signed Impressions: Service Date/Time: Monday, December 25, 2017 02:52 - CONCLUSION: 1. The gallbladder is abnormal. It contains stones and demonstrates wall thickening/edema. This findings can be seen with acute cholecystitis. 2. No other acute finding is identified. Jersey Jimenez MD PE at Discharge GENERAL: Very pleasant 62 yo male, appears in nad. SKIN: Warm and dry. CARDIOVASCULAR: Regular rate and rhythm. RESPIRATORY: No accessory muscle use. Clear to auscultation. Decreased breath sounds on the right lower side , CT was removed dressing c/d/i. Satting well on room air. GASTROINTESTINAL: Abdomen soft, non-tender, nondistended. Cholecystostomy tube in place, no guarding MUSCULOSKELETAL: Extremities without clubbing, cyanosis, or edema. No obvious deformities. NEUROLOGICAL: Awake and alert. No obvious cranial nerve deficits. Motor grossly within normal limits. Five out of 5 muscle strength in the arms and legs. Normal speech. PSYCHIATRIC: Appropriate mood and affect; insight and judgment normal. Pt update on day of discharge Feels better today. No much pain . CT was removed yesterday abmulating fairly well. No n/v/d/c. Deneis chest pain or sob at this time. Says he branch sno much cough. Breathing wel, satting well on room air. Hospital Course 62 years old male Acute cholecystitis: S/P cholecystostomy tube placement Multiple Gallstones GS ff. clinically feeling better Continue on IV zosyn and IV Diflucan. ID ff. DC on le vaquin . GS ff-original plan for elective cholecystectomy in 4-6 weeks. for cholangiogram study- results pending has been off Effiant- Pneumonia with right pleural effusion S/P CT placement 12/[address] removed 01/02. Satting well on room air. Persistent Leukocytosis on zosyn and Diflucan. ID ff along with us. DC on lervaquin Pulmonary/IR ff- - CT management- removed CT and doing well. Satting well on room air. ff up CXR Right subdiaphragmatic fluid collection S/P I and 12/31- only 20 cc obtained HYpokalemia- improved. KCL 20 meq po daily Coronary artery disease: Hypertension BNP normal. 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 continue meds- Amlodipine 10 mg daily. Metoprolol 25 mg po q8. Monitor and adjust Hyperlipidemia: statin. DVT prophylaxis: SCDs, OREN arvizu.- patient up and ambulating. PT daily Improved. Sattign well on room air. Pain is controlled. Patient is discharged home in stable condition to follow up as OP with PCP and consultants Pt Condition on Discharge: Stable Discharge Disposition: Disch w/ Home Health Serv Discharge Time: > 30 minutes Discharge Instructions DIET: Follow Instructions for: Heart Healthy Diet Activities you can perform: Regular-No Restrictions Follow up Referrals: PCP Follow-up - 2-3 Days Pulmonology - 1 Week Surgical - 10 Days with Bryant Medina MD New Orders: CBC WITH DIFF - 1 Week COMP MET PROF (CMP) - 1 Week New Medications: Oxycodone-Acetaminophen (Oxycodone-Acetaminophen) 5-325 mg Tab 1-2 TAB PO Q4H PRN for PAIN, #30 TAB 0 Refills Changed Medications: Amlodipine (Amlodipine) 2.5 Mg Tab 5 MG PO DAILY for Blood Pressure Management, #30 TAB 0 Refills (Changed from: 2.5 MG) Continued Medications: Aspirin (Aspirin Low Dose) 81 Mg Chew 81 MG CHEW DAILY, TAB 0 Refills Atorvastatin (Atorvastatin) 40 Mg Tab 40 MG PO HS for Cholesterol Management, #30 TAB 0 Refills Metoprolol Tartrate (Metoprolol Tartrate) 25 Mg Tab 25 MG PO DAILY, #30 TAB 0 Refills Nitroglycerin SL (Nitroglycerin SL) 0.4 Mg Subl 0.4 MG SL DIRECTED PRN for CHEST PAIN, #20 TAB.SL 0 Refills ONE TABLET UNDER THE TONGUE NEEDED FOR CHEST PAIN, MAY REPEAT EVERY FIVE MINUTES FOR A TOTAL OF 3 DOSES OR CALL 911 IF NO RELIEF Prasugrel (Effient) 10 Mg Tab 10 MG PO DAILY for cad for 30 Days, TAB 0 Refills Narcisa Sanchez MD Jan 03, 2018 13:48
--- NOTE | 2018-01-03 13:48 | HHI.DS ---
Discharge Summary Admission Date Dec 25, 2017 at 03:50 Admitting Diagnosis acute cholecystitis (1) Coronary artery disease ICD Code: I25.10 - Atherosclerotic heart disease of [place] coronary artery without angina pectoris (2) Hypertension ICD Code: I10 - Essential (primary) hypertension (3) Nausea & vomiting ICD Code: R11.2 - Nausea with vomiting, unspecified (4) Acute cholecystitis ICD Code: K81.0 - Acute cholecystitis Status: Acute (5) Sepsis ICD Code: A41.9 - Sepsis, unspecified organism Procedures 12/26/17 percutaneous cholangiogram with cholecystostomy tube placement 12/31- chest tube placement right- initially drained 1300 cc on insertion 12/31- drainage of subdia[hragmatic fluid- obtained 20cc Brief History - From Admission The patient is a 62-year-old male who presented to the emergency department with complaint of right upper quadrant abdominal pain that started yesterday after eating a hamburger. He reports nausea and vomiting. Pain is 10/10. Reports mild constipation. He has had this pain intermittently, but it worsened significantly yesterday. CBC/BMP: 01/02/18 0730 01/02/18 0730 Significant Findings Laboratory Tests Test 12/31/17 15:20 01/01/18 15:30 01/02/18 07:30 Pleural Fluid WBC 1810 /MM3 (0-10) Pleural Fluid RBC 44327 /MM3 (0-0) White Blood Count 16.5 TH/MM3 (4.0-11.0) 17.6 TH/MM3 (4.0-11.0) Red Blood Count 4.20 MIL/MM3 (4.50-5.90) 4.29 MIL/MM3 (4.50-5.90) Neutrophils (%) (Auto) 78.0 % (16.0-70.0) 79.6 % (16.0-70.0) Lymphocytes (%) (Auto) 7.9 % (9.0-44.0) 8.4 % (9.0-44.0) Monocytes (%) (Auto) 12.2 % (0.0-8.0) 9.7 % (0.0-8.0) Neutrophils # (Auto) 12.9 TH/MM3 (1.8-7.7) 14.0 TH/MM3 (1.8-7.7) Monocytes # (Auto) 2.0 TH/MM3 (0-0.9) 1.7 TH/MM3 (0-0.9) Random Glucose 107 MG/DL (74-106) Potassium Level 3.2 MEQ/L (3.5-5.1) Estimat Glomerular Filtration Rate 80 ML/MIN (>89) Mean Platelet Volume 6.9 FL (7.0-11.0) Calcium Level 8.4 MG/DL (8.5-10.1) PE at Discharge awake and alert,more interactive and smiling, relating stories during his working years lungs- decreased breath sounds , no rales or wheezes regular rhythm abdomen-soft, good bowel sounds- non tender - cholecystostomy tube in place, no guarding extremities no edema Pt Condition on Discharge: Stable Discharge Disposition: Disch w/ Home Health Serv Discharge Instructions DIET: Follow Instructions for: Heart Healthy Diet Activities you can perform: Regular-No Restrictions Narcisa Sanchez MD Jan 03, 2018 13:48
--- NOTE | 2018-01-03 13:49 | HHI.FF ---
Face to Face Verification Diagnosis: (1) Acute cholecystitis (2) cholecystostomy tube (3) Sepsis (4) Nausea & vomiting (5) Hypertension (6) Coronary artery disease (7) Laceration of head (8) NSTEMI (non-ST elevated myocardial infarction) (9) Nausea Physical Therapy Order: Evaluate and Treat Home Health Nursing Order: Medical education Signs/symptoms of disease process Medication education-adverse effect Nursing assessment with vital signs I have seen patient Mervin Howard Jr [facility] on 01/03/18. My clinical findings support the need for the requested home health care services because: Ltd mobility - disease progression Patient has SOB I certify that my clinical findings support that this patient is homebound because: Post-op weakness Unsteady gait/balance Narcisa Sanchez MD Jan 03, 2018 13:48
--- NOTE | 2018-01-03 14:38 | HHI.IDPN ---
Subjective Subjective Remarks Mr. Glynn is a 42-year-old male who presented to the emergency department complains of right upper quadrant abdominal pain which started day before admission. He reports that this started after he ate a hamburger. He reports nausea and vomiting associated with pain. He reports mild constipation. Denies any fever or chills. Patient was seen by surgery Dr. Medina. Interventional radiology was consulted for and a IR guided cholecystostomy tube was placed. Patient was reportedly starting to do better was close to being discharged. Due to some respiratory issues and discomfort on the right side patient underwent a chest x-ray followed by a CT which showed right-sided effusion possibly loculated. Dr. Saucedo pulmonology is on case and ordered a CT-guided thoracentesis to rule out empyema. Infectious disease is consulted for evaluation and management of sepsis, acute cholecystitis and right-sided pleural effusion rule out empyema. Night events reviewed. No fever No Rash No Diarrhea Antibiotics Zosyn IV Diflucan Lines Line sites with no evidence of infection Past Medical History Past Medical History Coronary artery disease Hyperlipidemia Hypertension History of shingles Past Surgical History Appendectomy Cardiac catheterization with stent placement Tonsillectomy/adenoidectomy Allergies: Coded Allergies: codeine (Verified Allergy, Unknown, 12/25/17) Objective . Vital Signs Date Time Temp Pulse Resp B/P (MAP) Pulse Ox O2 Delivery O2 Flow Rate FiO2 01/03/18 11:51 98.6 82 20 143/71 (95) 93 01/03/18 11:50 96 01/03/18 07:56 98.4 80 22 158/75 (102) 96 01/03/18 04:00 97.4 77 18 143/77 (99) 93 01/03/18 00:00 97.9 79 18 144/77 (99) 93 01/02/18 20:09 90 01/02/18 20:00 100.1 86 18 171/85 (113) 93 01/02/18 19:55 Nasal Cannula 2.00 21 01/03/18 01/03/18 01/04/18 15:00 23:00 07:00 # Voids 3 . Laboratory Tests Test 01/01/18 15:30 01/02/18 07:30 White Blood Count 16.5 TH/MM3 17.6 TH/MM3 Red Blood Count 4.20 MIL/MM3 4.29 MIL/MM3 Hemoglobin 13.4 GM/DL 13.9 GM/DL Hematocrit 39.0 % 39.9 % Mean Corpuscular Volume 92.8 FL 92.9 FL Mean Corpuscular Hemoglobin 32.0 PG 32.3 PG Mean Corpuscular Hemoglobin Concent 34.5 % 34.8 % Red Cell Distribution Width 14.2 % 14.2 % Platelet Count 394 TH/MM3 394 TH/MM3 Mean Platelet Volume 7.0 FL 6.9 FL Neutrophils (%) (Auto) 78.0 % 79.6 % Lymphocytes (%) (Auto) 7.9 % 8.4 % Monocytes (%) (Auto) 12.2 % 9.7 % Eosinophils (%) (Auto) 1.7 % 1.9 % Basophils (%) (Auto) 0.2 % 0.4 % Neutrophils # (Auto) 12.9 TH/MM3 14.0 TH/MM3 Lymphocytes # (Auto) 1.3 TH/MM3 1.5 TH/MM3 Monocytes # (Auto) 2.0 TH/MM3 1.7 TH/MM3 Eosinophils # (Auto) 0.3 TH/MM3 0.3 TH/MM3 Basophils # (Auto) 0.0 TH/MM3 0.1 TH/MM3 CBC Comment DIFF FINAL DIFF FINAL Differential Comment Laboratory Tests Test 01/01/18 15:30 01/02/18 07:30 Blood Urea Nitrogen 13 MG/DL 12 MG/DL Creatinine 0.95 MG/DL 0.82 MG/DL Random Glucose 107 MG/DL 103 MG/DL Calcium Level 8.7 MG/DL 8.4 MG/DL Sodium Level 136 MEQ/L 137 MEQ/L Potassium Level 3.2 MEQ/L 3.8 MEQ/L Chloride Level 98 MEQ/L 102 MEQ/L Carbon Dioxide Level 31.8 MEQ/L 29.4 MEQ/L Anion Gap 6 MEQ/L 6 MEQ/L Estimat Glomerular Filtration Rate 80 ML/MIN 95 ML/MIN Microbiology Date/Time Source Procedure Growth Status 12/31/17 15:20 Fluid Pleural Fluid Acid Fast Stain - Final NO ACID FAST BACILLI SEEN Resulted 12/31/17 15:20 Fluid Pleural Fluid Mycobacterial Culture Pending Resulted 12/31/17 15:20 Fluid Pleural Fluid Fungal Smear - Final NO FUNGAL ELEMENTS SEEN. Resulted 12/31/17 15:20 Fluid Pleural Fluid Fungal Culture Pending Resulted 12/31/17 15:20 Fluid Pleural Fluid Gram Stain - Final Complete 12/31/17 15:20 Fluid Pleural Fluid Body Fluid Culture - Final NO GROWTH IN 72 HRS.--AEROBICALLY OR ... Complete 12/31/17 15:15 Fluid Other Acid Fast Stain - Final NO ACID FAST BACILLI SEEN Resulted 12/31/17 15:15 Fluid Other Mycobacterial Culture Pending Resulted Imaging Last Impressions Chest X-Ray 01/01/18 0000 Signed Impressions: Service Date/Time: Monday, January 01, 2018 05:40 - CONCLUSION: Bilateral effusions and consolidation with volume loss on the right. Jose Chilel MD Chest CT 01/01/18 0000 Signed Impressions: Service Date/Time: Monday, January 01, 2018 14:16 - CONCLUSION: 1. Marked improvement in the right-sided pleural effusion. There is still a small, possibly loculated component remaining, however. Concomitant atelectatic changes also show interval improvement. 2. Left lung remains grossly clear except for a very tiny left-sided pleural effusion. 3. Calcified gallstones. Cholecystostomy tube in place. 4. Ascites along the hepatic dome. Jeffry Irwin MD Chest Tube Insertion 12/31/17 0000 Signed Impressions: Service Date/Time: Sunday, December 31, 2017 14:28 - CONCLUSION: Uncomplicated chest tube placement as above. David Nichols MD Abscess Drainage CT 12/31/17 0000 Signed Impressions: Service Date/Time: Sunday, December 31, 2017 14:28 - CONCLUSION: 1. Uncomplicated aspiration of subdiaphragmatic fluid yielding serosanguineous fluid. Entire sample was submitted for Gram stain and C&S. David Nichols MD Chest Ultrasound 12/30/17 0600 Signed Impressions: Service Date/Time: Saturday, December 30, 2017 11:10 - CONCLUSION: Small right-sided pleural effusion.. Alanis Cross MD Abdomen CT 12/30/17 0000 Signed Impressions: Service Date/Time: Sunday, December 31, 2017 00:51 - CONCLUSION: 1. Cholecystostomy drain present. Gallbladder wall remains thickened with some pericholecystic inflammatory or edematous changes. Numerous calcified gallstones. No biliary ductal dilatation. 2. Development of right pleural effusion and basilar atelectasis. Yonatan Hassan MD Percutaneous Cholangiogram 12/26/17 0000 Signed Impressions: Service Date/Time: Tuesday, December 26, 2017 14:06 - CONCLUSION: Uncomplicated percutaneous cholecystostomy as above. Jersey Bedoya MD Abdomen/Pelvis CT 12/25/17 0148 Signed Impressions: Service Date/Time: Monday, December 25, 2017 02:52 - CONCLUSION: 1. The gallbladder is abnormal. It contains stones and demonstrates wall thickening/edema. This findings can be seen with acute cholecystitis. 2. No other acute finding is identified. Jersey Jimenez MD Physical Exam GENERAL: Obese, well-developed patient, in no apparent distress. SKIN: No rashes, ecchymoses or lesions. Cool and dry. HEAD: Atraumatic. Normocephalic. No temporal or scalp tenderness. EYES: Pupils equal round and reactive. Extraocular motions intact. No scleral icterus. No injection or drainage. ENT: Nose without bleeding, purulent drainage or septal hematoma. Throat without erythema, tonsillar hypertrophy or exudate. Uvula midline. Airway patent. NECK: Trachea midline. Supple, nontender, no meningeal signs. CARDIOVASCULAR: Heart sounds audible. RESPIRATORY: Air entry decreased bilateral bases right more than left. Right- sided chest tube in place with serosanguineous discharge. GASTROINTESTINAL: Abdomen soft, nontender, right-sided cholecystostomy tube in place with sero sanguinous discharge. MUSCULOSKELETAL: Extremities without clubbing, cyanosis, or edema. No joint tenderness, effusion, or edema noted. No calf tenderness. Negative Homans sign bilaterally. NEUROLOGICAL: Awake and alert. Nonfocal Psych cooperative IV line sites with no evidence of infection. Assessment & Plan Remarks Acute cholecystitis status post IR guided cholecystostomy tube placement Possible pneumonia with right-sided pleural effusion rule out empyema Coronary artery disease Hyperlipidemia Obesity BMI 39.7 KG per meter square Recommendations DC antibiotics. Reviewed note addendum: no antibiotics: to confirm with him Follow cultures follow clinically Will sign off please call back if any change in clinical condition or questions. Alla Garcia MD Jan 03, 2018 14:38
--- NOTE | 2018-01-05 07:55 | RADRPT ---
EXAM DATE/TIME: 01/02/2018 00:00 [facility] COMPARISON: CHOLECYSTOSTOMY, PERCUTANEOUS, December 26, 2017, 14:06. INDICATIONS : Chest tube removal post pleural effusion DEVICE(S): 1.) PROCEDURE : Chest tube removal. Using aseptic technique the previously placed chest tube was easily removed in one piece and Vaseline gauze and sterile dressing was applied. Chest radiograph is to be obtained. CONCLUSION: Uncomplicated chest tube removal. German Baker MD on January 05, 2018 at 7:44 Board Certified Radiologist. This report was verified electronically.
== END 2018-01-03 15:55 | disposition home health service (06) | DRG 871 ==
LOC: PHED 00:50 → PHEDA 03:50 → PH3A 04:31 → NEPFCDU 12-26 12:36 → N05A 12-27 13:56
PROVIDERS: ADMIT Hospitalist; ATTEND Hospitalist
PROC: 0F9430Z Drainage of Gallbladder with Drainage Device, Percutaneous Approach (ICD-10-PCS; principal; 2017-12-26)
PROC: 0W9G3ZX Drainage of Peritoneal Cavity, Percutaneous Approach, Diagnostic (ICD-10-PCS; 2017-12-31)
PROC: 0W9930Z Drainage of Right Pleural Cavity with Drainage Device, Percutaneous Approach (ICD-10-PCS; 2017-12-31)
PROC: BF131ZZ Fluoroscopy of Gallbladder and Bile Ducts using Low Osmolar Contrast (ICD-10-PCS; 2018-01-02)
PROC: 0WP9X0Z Removal of Drainage Device from Right Pleural Cavity, External Approach (ICD-10-PCS; 2018-01-02)
DX: A41.9 Sepsis, unspecified organism (principal); J18.9 Pneumonia, unspecified organism; J91.8 Pleural effusion in other conditions classified elsewhere; K80.00 Calculus of gallbladder with acute cholecystitis without obstruction; I10 Essential (primary) hypertension; I25.10 Atherosclerotic heart disease of native coronary artery without angina pectoris; E87.6 Hypokalemia; E78.5 Hyperlipidemia, unspecified; Z79.02 Long term (current) use of antithrombotics/antiplatelets; Z79.82 Long term (current) use of aspirin; Z95.5 Presence of coronary angioplasty implant and graft; Z68.38 Body mass index [BMI] 38.0-38.9, adult; E66.01 Morbid (severe) obesity due to excess calories
CPT/HCPCS: 32557; 47490; 47531; 71045; 71046; 71250; 71260; 74160; 74177; 75989; 76604; 76937; 80048; 80053; 81001; 82150; 82945; 83605; 83615; 83690; 83880; 83986; 84157; 85007; 85025; 85027; 85610; 85730; 87015; 87040; 87070; 87102; 87116; 87205; 87206; 89051; 94150; 94640; 94664; 94667; 94668; 96361; 96374; 96375; 99152; 99153; C1729; C1769; J1170; J1450; J1940; J2250; J2405; J2543; J3010; J3480; J7030; Q9967